=== PATIENT | male | born 1965 | race Hispanic/Latino ===

== ENCOUNTER 2016-06-10 06:02 | Day surgery (SDC) | payer MEDICARE ==
[2016-06-09 06:56] VITALS: BMI 23.7
[2016-06-10 06:47] LABS: CALCIUM 9.1 mg/dL (8.4-10.5); POTASSIUM 4.9 mmol/L (3.6-5.0)
[2016-06-10 06:58] VITALS: RESP 18
[2016-06-10] MEDS ORDERED: Bupivacaine 0.5% Inj(30mL) ONE (07:36)
[2016-06-10] MEDS ORDERED: Propofol 10 mg/ml Inj (20 ML) ONE (07:37)
[2016-06-10] MEDS ORDERED: Midazolam 2 MG/2 ML VIAL ONE (07:38)
[2016-06-10] MEDS ORDERED: Rocuronium 10 mg/ml (5 ml) ONE (09:13)
[2016-06-10] MEDS ORDERED: Succinylcholine 200 mg/10 ml Inj IV ONE (09:13)
[2016-06-10] MEDS ORDERED: Neostigmine Methylsulfate 3mg/3ml Syringe IV ONE (09:18)
[2016-06-10] MEDS ORDERED: HYDROmorphone 0.5 mg/0.5 ml ISec IVP PRN (09:23)
[2016-06-10] MEDS ORDERED: Oxycodone/Acetaminophen 5/325 mg Tab PO PRN (09:27)
--- NOTE | 2016-06-10 09:27 | PCM.SURG1 ---
Surgeon's Initial Post Op Note - Surgeon's Notes Surgeon: Dr. Alejo Antitank Assault Gunner: Dr. Lopez, PGY-2 Type of Anesthesia: General Endo Anesthesia Administered By: Dr. Gurrola Pre-Operative Diagnosis: End Stage Renal Disease Operative Findings: See operative report Post-Operative Diagnosis: Same Operation Performed: Insertion of Peritoneal Dialysis catheter & Omentopexy Specimen/Specimens Removed: none Estimated Blood Loss: EBL {In ML}: 5 Blood Products Given: N/A Drains Used: No Drains Post-Op Condition: Good Date of Surgery/Procedure: 06/10/16 Time of Surgery/Procedure: 09:26
[2016-06-10] MEDS ORDERED: Sodium Chloride 0.9% 1,000 ML IV SCH (09:30)
[2016-06-10] MEDS ORDERED: HYDROmorphone 0.5 mg/0.5 ml ISec ONE (09:45)
[2016-06-10] MEDS ORDERED: HYDROmorphone 0.5 mg/0.5 ml ISec IVP ONE (09:45)
--- NOTE | 2016-06-10 09:54 | OP ---
PROCEDURE DATE: 06/10/2016 PREOPERATIVE DIAGNOSIS: End-stage renal disease. POSTOPERATIVE DIAGNOSIS: End-stage renal disease. PROCEDURE PERFORMED: 1. Laparoscopic placement of the peritoneal dialysis catheter. 2. Laparoscopic omentopexy. 3. Placement of the peritoneal catheter extension in the upper abdomen. SURGEON: Ashok Alejo MD. VIBRATION ANALYST: Dr. Lopez. ANESTHESIA: General endotracheal anesthesia. ANESTHESIOLOGIST: Dr. Thomason. ESTIMATED BLOOD LOSS: Minimal. SPECIMEN: None. INDICATION: The patient is a 50-year-old male with a history of end-stage renal disease, currently on dialysis via the peritoneal dialysis catheter, who was scheduled for a peritoneal dialysis catheter placement. DESCRIPTION OF PROCEDURE: The patient was brought to the operating room and placed on the operating table in supine position. The patient was connected to EKG, blood pressure, and pulse oximeter monitors. The patient then underwent general endotracheal anesthesia, was prepped and draped in the usual sterile fashion. First, a timeout procedure took place, and everybody in a room agreed as to the patient's identity, diagnosis, and procedure to be performed. Using lidocaine mixed with Marcaine, the left subcoastal area was infiltrated, and an incision was made about 14 mm for placement of the 12-mm port. This was a Visiport and placed under direct visualization of the camera. Once inside the abdominal cavity, pneumoperitoneum was obtained, and careful evaluation of abdominal cavity revealed the presence of a right transplanted kidney in the right lower quadrant under the wall. There were some adhesions of omentum to that area, and there was also free-floating omentum all the way down to the pelvis. At this point, I carefully elevated the omentum and lifted it up, placed a 0 Vicryl tie into the abdominal cavity and proceeded the omentopexy of the omentum against the anterior abdominal wall using a closure needle. Once this was done and the omentum was elevated, I then placed an 8-mm port, which was tunneled from just about 8 cm above the umbilicus underneath the anterior rectus sheath down to about the umbilical level and then placed through the posterior rectus sheath down and through the peritoneum into the abdominal cavity. The catheter was then advanced and placed into the pelvis. The port was carefully withdrawn, and the calf of the catheter was placed just above the peritoneum to be hidden from the peritoneal cavity. Next, the extension of the peritoneal catheter was placed under the skin and tunneled from the entry site of the 8-mm port towards the entry site of the 12- mm port, curved it down, and brought out through the skin on the left lateral abdomen at the level of the umbilicus. Next, the primary catheter and the extensions were connected with the connector and tied in place. This was then tunneled under the skin and carefully positioned and flattened. Next, careful evaluation of the catheter itself revealed the presence of the catheter in the pelvis with calf hidden under the peritoneum. We then infused the patient's abdominal cavity with about 600 mL of saline without any problems , and about 300 of that was drained back without any problems as well. Now, the pneumoperitoneum was released, trocars removed, and the wounds closed using 0 Vicryl for the fascia and the left subcostal incision, and 3-0 Vicryl for the deep dermis on all the wounds. 4-0 Monocryl was used for skin on all the wounds, and a Dermabond dressing was applied to all the wounds. The patient tolerated the procedure well, and there were no complications. The patient was awakened and transferred to the recovery room for further observation. Ashok Alejo MD cc: [id number] TT: 06/10/2016 09:53:14 jn MTDD
[2016-06-10 10:47] VITALS: TEMP 98.1
[2016-06-10 11:25] VITALS: BP 123/72; PULSE 94; O2SAT 98
== END 2016-06-10 12:05 | disposition home or self-care (01) ==
LOC: SDS 06:02
PROVIDERS: ATTEND General Practice
DX: I12.0 Hypertensive chronic kidney disease with stage 5 chronic kidney disease or end stage renal disease (principal); N18.6 End stage renal disease; N02.8 Recurrent and persistent hematuria with other morphologic changes; Z99.2 Dependence on renal dialysis; Z94.0 Kidney transplant status
CPT/HCPCS: 36415; 49324; 49326; 80048; J0330; J0690; J1170; J1644; J2250; J2405; J2704; J2710; J3010; J7030; J7040

== ENCOUNTER 2016-07-01 07:40 | Day surgery (SDC) | payer MEDICARE ==
[2016-06-09 06:56] VITALS: BMI 23.7
[2016-07-01] MEDS ORDERED: Propofol 10 mg/ml Inj (20 ML) ONE (09:22)
[2016-07-01 10:14] VITALS: O2SAT 100
[2016-07-01 11:01] VITALS: BP 133/92; PULSE 68; RESP 18; TEMP 98.3
== END 2016-07-01 11:20 | disposition home or self-care (01) ==
LOC: ENDO 07:40
PROVIDERS: ATTEND Internal Medicine Gastroenterology
DX: Z12.11 Encounter for screening for malignant neoplasm of colon (principal); D12.3 Benign neoplasm of transverse colon; K57.30 Diverticulosis of large intestine without perforation or abscess without bleeding; K64.9 Unspecified hemorrhoids; I12.0 Hypertensive chronic kidney disease with stage 5 chronic kidney disease or end stage renal disease; N18.6 End stage renal disease; Z99.2 Dependence on renal dialysis
CPT/HCPCS: 45380; 88305; J2704; J7040

== ENCOUNTER 2016-07-11 13:47 | Observation (INO) | payer MEDICARE ==
--- NOTE | 2016-07-11 14:22 | ED PDOC ---
Arrival/HPI - General Chief Complaint: Abnormal Labs Time Seen by Provider: 07/11/16 14:02 Historian: Patient - History of Present Illness Narrative History of Present Illness (Text): 07/11/16 14:18 50 year old male presents to the emergency department with 1 week duration of fever and chills and dry cough. Patient states he was recently training for peritoneal dialysis and has positive blood cultures outpatient. No other complaints at this time. PMD: Dr. Rivers Licensed Club Manager: Dr. Gleason Time/Duration: 1 week Symptom Onset: Gradual Symptom Course: Unchanged Modifying Factors (Text): None Past Medical History - Provider Review Nursing Documentation Reviewed: Yes - Infectious Disease Hx of Infectious Diseases: None - Tetanus Immunization Tetanus Immunization: Unknown - Cardiac Hx Hypertension: Yes - Pulmonary Hx Respiratory Disorders: No - Neurological Hx Neurological Disorder: No - HEENT Hx HEENT Disorder: (WEARS RX GLASSES) - Renal Hx Dialysis: Yes Date of Last Dialysis Treatment: 02/04/15 Hx Renal Failure: Yes Other/Comment: Dialysis port to the right chest wall - Endocrine/Metabolic Hx Endocrine Disorders: No - Hematological/Oncological Hx Anemia: Yes - Integumentary Hx Dermatological Disorder: No - Musculoskeletal/Rheumatological Hx Musculoskeletal Disorders: No - Gastrointestinal Hx Gastrointestinal Disorders: No - Genitourinary/Gynecological Other/Comment: ANURIC - Psychiatric Hx Anxiety: Yes Hx Depression: Yes Hx Emotional Abuse: No Hx Physical Abuse: No Hx Substance Use: No - Surgical History Hx Kidney Transplant: Yes - Anesthesia Hx Anesthesia Reactions: No Hx Malignant Hyperthermia: No - Suicidal Assessment Feels Threatened In Home Enviroment: No Family/Social History - Physician Review Nursing Documentation Reviewed: Yes Family/Social History: Unknown Family HX Smoking Status: Never Smoked Hx Alcohol Use: No Hx Substance Use: No Allergies/Home Meds Allergies/Adverse Reactions: Allergies Iodine and Iodide Containing Produc Allergy (Verified 07/11/16 13:49) ANAPHYLAXIS shellfish derived Allergy (Verified 07/11/16 13:49) ANAPHYLAXIS Home Medications: Home Meds Medication Instructions Recorded Confirmed Tacrolimus [Prograf] 1.5 mg PO BID 05/15/13 07/11/16 Alprazolam [Alprazolam] 0.5 mg PO BID PRN 03/09/15 07/11/16 Amlodipine/Valsartan [Exforge 1 tab PO DAILY 03/09/15 07/11/16 10-320 mg Tablet] Minoxidil [Minoxidil] 10 mg PO DAILY 03/09/15 07/11/16 Prednisone [Prednisone] 5 mg PO DAILY 03/09/15 07/11/16 Ferric Citrate [Auryxia] 3 tab PO TID 05/30/16 07/11/16 Ondansetron [Zofran] 4 mg PO BID PRN 05/30/16 07/11/16 Sertraline [Zoloft] 50 mg PO DAILY 05/30/16 07/11/16 cloNIDine [Catapres (RENAL)] 0.1 mg PO BID 05/30/16 07/11/16 Bisacodyl [Dulcolax] 1 tab PO BID 07/11/16 07/11/16 Review of Systems - Physician Review All systems were reviewed & negative as marked: Yes Physical Exam - Physical Exam Narrative Physical Exam (Text): - Review of Systems Constitutional: Normal. absent: Fatigue, Weight Change, Fevers Eyes: Normal ENT: Normal Respiratory: Cough (dry) absent: SOB, Sputum Cardiovascular: Normal absent: Chest pain, Palpitations, Syncope Gastrointestinal: absent: Abdominal pain, Diarrhea, Nausea, Vomiting Genitourinary: Normal. absent: Dysuria, Frequency, Hematuria Musculoskeletal: Normal. absent: Arthralgias, Back Pain, Neck Pain Skin: Normal Neurological: Normal absent: Focal Weakness Endocrine: Normal Hemo/Lymphatic: Normal Psychiatric: Normal - Physical exam Patient appears age appropriate, speaking full sentences without difficulty - Systems Exam Head: Present: Atraumatic, Normocephalic Pupils: Present: PERRL Extraocular Muscles: Present: EOMI Conjunctiva: Present: Normal Mouth: Present: Moist Mucous Membranes Neck: Present: Normal Range of Motion. No: MIDLINE TENDERNESS, Paraspinal Tenderness Respiratory/Chest: Present: Clear to Auscultation, Good Air Exchange. No: Respiratory Distress, Accessory Muscle Use, Tachypneic Cardiovascular: Present: Regular Rate and Rhythm, Normal S1, S2, Peripheral Pulses Present. Murmur. Abdomen: Present: Normal Bowel Sounds. Left lower quadrant PD insertion site with no drainage, erythema, or tenderness. No: Tenderness, Peritoneal Signs, Rebound, Guarding, Distention Back: Present: Normal Inspection. No: Midline Tenderness, Paraspinal Tenderness Upper Extremity: Present: Normal Inspection. No: Cyanosis, Edema Lower Extremity: Present: Normal Inspection. No: Edema Neurological: Present: GCS=15, Speech Normal, cranial nerves II through XII fully intact with no cerebellar abnormality, neuro-sensory fully intact. No focal neurological deficits. Skin: Present: Warm, Dry, Normal Color. No: Rashes Lymphatic: Present: OX3, NI, NC Psychiatric: Present: Alert, Oriented x 3, Normal Insight, Normal Concentration Vital Signs Reviewed: Yes Vital Signs Temp Pulse Resp BP Pulse Ox 07/11/16 13:50 100.2 F H 105 H 16 136/81 94 L Temperature: Afebrile Blood Pressure: Normal Pulse: Tachycardic Respiratory Rate: Normal Appearance: Positive for: Well-Appearing, Non-Toxic, Comfortable Pain Distress: None Mental Status: Positive for: Alert and Oriented X 3 Medical Decision Making ED Course and Treatment: Impression: 50 year old male presents to the emergency department with 1 week duration of fever and chills and dry cough. On physical exam, patient has no acute findings. Had pos. blood Cx outpatient. Plan: -- Blood cultures -- Labs -- Reassess and disposition Prior Visits: Notes and results from previous visits were reviewed. Patient last seen in the ED on 02/04/15 for elevated blood pressure and discharged home. Progress Notes: Case discussed with Dr. Gleason, verification rep, states to administer 1 g Vancomycin, repeat blood cultures, admit for further workup. He states patient' s blood cultures showed gram positive cocci in clusters. Chest x-ray read by me shows no pneumothorax, no pneumonia, no cardiomegaly, no infiltrates. 07/11/16 15:[address] Harsha Rivers, accepted admission to his service pt in no distress, aware of and agrees with plan - Lab Interpretations Lab Results: 07/11/16 14:28 07/11/16 14:28 Lab Results 07/11/16 14:28: Sodium 138, Potassium 4.8, Chloride 98, Carbon Dioxide 24, Anion Gap 21 H, BUN 74 H, Creatinine 22.5 H*, Est GFR ( Amer) 3, Est GFR (Non-Af Amer) 2, Random Glucose 105, Calcium 7.5 L, Total Bilirubin 0.8, AST 8 L , ALT 24, Alkaline Phosphatase 57, Total Protein 6.8, Albumin 3.8, Globulin 3.0 , Albumin/Globulin Ratio 1.3 07/11/16 14:28: PT 10.9, INR 1.01, APTT 30.8 07/11/16 14:28: WBC 3.0 L D, RBC 3.05 L, Hgb 9.5 L, Hct 28.9 L, MCV 94.8, MCH 31.1, MCHC 32.9, RDW 12.2, Plt Count 55 L, MPV 10.1, Gran % 50.1, Lymph % (Auto ) 31.1, [place] % (Auto) 15.2 H, Eos % (Auto) 3.3, Baso % (Auto) 0.3, Gran # 1.51, Lymph # 0.9 L, [place] # 0.5, Eos # 0.1, Baso # 0.01 - RAD Interpretation Radiology Orders: 07/11/16 14:03 CHEST PORTABLE [RAD] Stat - Medication Orders Current Medication Orders: Vancomycin HCl (Vancomycin 1gm) 1 gm in 250 mls @ 133.333 mls/hr IVPB STAT STA PRN Reason: Protocol Stop: 07/11/16 16:40 - Scribe Statement The provider has reviewed the documentation as recorded by the Santos Villar Provider Scribe Attestation: All medical record entries made by the Santos were at my direction and personally dictated by me. I have reviewed the chart and agree that the record accurately reflects my personal performance of the history, physical exam, medical decision making, and the department course for this patient. I have also personally directed, reviewed, and agree with the discharge instructions and disposition. Disposition/Present on Arrival - Present on Arrival Any Indicators Present on Arrival: No History of DVT/PE: No History of Uncontrolled Diabetes: No Urinary Catheter: No History of Decub. Ulcer: No History Surgical Site Infection Following: None - Disposition Have Diagnosis and Disposition been Completed?: Yes Diagnosis: Bacteremia Disposition: HOSPITALIZED Disposition Time: 15:14 Patient Plan: Admission Condition: GOOD Referrals: Harsha Rivers JD, MD [Primary Care Provider] - Follow up with primary
[2016-07-11 14:37] LABS: ADD MANUAL DIFF? NO
[2016-07-11 14:42] LABS: BASO # 0.01 K/mm3 (0.0-2.0); BASO % 0.3 % (0.0-3.0); EOS # 0.1 (0.0-0.7); EOS % 3.3 % (1.5-5.0); GRAN # 1.51 (1.4-6.5); GRAN % 50.1 % (50.0-68.0); HEMATOCRIT 28.9 % (42.0-52.0); LYMPH # 0.9 (1.2-3.4); LYMPH % 31.1 % (22.0-35.0); MEAN CELL VOLUME 94.8 fL (80.0-105.0); MEAN CORPUSCULAR HEMOGLOBIN 31.1 pg (25.0-35.0); MEAN CORPUSCULAR HGB CONC 32.9 g/dl (31.0-37.0); MEAN PLATELET VOLUME 10.1 fl (7.0-11.0); MONO # 0.5 (0.1-0.6); MONO % 15.2 % (1.0-6.0); PLATELET COUNT 55 10^3/uL (120.0-450.0); RED CELL DISTRIBUTION WIDTH 12.2 % (11.5-14.5)
[2016-07-11] MEDS ORDERED: Vancomycin 1gm in NS 250ml 1 GM/250 ML BAG IVPB STA (14:48)
[2016-07-11 14:49] LABS: ALB/GLOB RATIO 1.3 (1.1-1.8); BILIRUBIN,TOTAL 0.8 mg/dL (0.2-1.3); CALCIUM 7.5 mg/dL (8.4-10.5); POTASSIUM 4.8 mmol/L (3.6-5.0); TOTAL PROTEIN 6.8 g/dL (5.8-8.3)
[2016-07-11 14:53] LABS: INR 1.01 (0.93-1.08); PARTIAL THROMBOPLASTIN TIME 30.8 Seconds (23.7-30.8)
--- NOTE | 2016-07-11 14:59 | RAD ---
HISTORY: cough COMPARISON: Chest x-ray performed 05/30/16 TECHNIQUE: Chest, one view. FINDINGS: Right IJ dialysis catheter with distal tips at the cavoatrial junction/right atrium. LUNGS: No focal consolidation. Please note that chest x-ray has limited sensitivity for the detection of pulmonary masses. PLEURA: No significant pleural effusion identified. No definite pneumothorax . CARDIOVASCULAR: Heart size appears top normal. Atherosclerotic calcifications of the aorta. OSSEOUS STRUCTURES: Degenerative changes. VISUALIZED UPPER ABDOMEN: Unremarkable. OTHER FINDINGS: None. IMPRESSION: Right-sided dialysis catheter. No focal consolidation, significant pleural effusion, or definite pneumothorax identified.
[2016-07-11 15:06] VITALS: RESP 18
[2016-07-11 19:29] VITALS: BMI 24.7
[2016-07-11] MEDS ORDERED: Pneumococcal 23-Valent Vaccine IM ONE (19:29)
[2016-07-11 19:34] VITALS: PULSE 79
[2016-07-12 07:21] VITALS: BP 151/94; TEMP 98.6; O2SAT 97
[2016-07-12] MEDS: Ferric Citrate 210 mg (AURYXIA) Tab. PO SCH ×3 (09:40→18:57)
[2016-07-12] MEDS: Bisacodyl 5mg EC Tab PO SCH ×3 (09:41→18:58)
--- NOTE | 2016-07-12 14:30 | HP ---
HISTORY OF PRESENT ILLNESS: The patient is a 50-year-old male with a history of IgA nephropathy with chronic kidney disease, status post renal transplant approximately 8 years ago with subsequent rejec tion. The patient has been on hemodialysis and recently had a peritoneal dialysis catheter inserted. He was seen in the Emergency Department with a complaint of positive blood cultures with gram-posit roland cocci 2 days ago after blood cultures were taken as an outpatient for reports of fever. The ember ent denies cough. He denies dysuria. He denies diarrhea. There is no nausea, no vomiting, no chest pain, no shortness of breath. The patient is afebrile at the present time. He is admitted to the [facility] surgical floor for further evaluation and management. PAST MEDICAL HISTORY: Includes hypertension and depression. PAST SURGICAL HISTORY: Includes renal transplant 6 years ago. MEDICATIONS: Include ferric citrate 630 mg 3 times daily, clonidine 0.5 mg twice daily, Diovan 320 m g daily, minoxidil 10 mg daily, Norvasc 10 mg daily, prednisone 5 mg daily, tacrolimus 1.5 mg twice d aily, Xanax 0.5 mg twice daily and Zoloft 50 mg daily. The patient also received 1 gram of vancomyci n IV in the Emergency Department. ALLERGIES: THE PATIENT HAS ALLERGIES TO IODINE AND SHELLFISH. SOCIAL HISTORY: The patient has no history of alcohol or tobacco use. He is independent with ADLs a nd IADLs. PHYSICAL EXAMINATION: GENERAL: The patient is a well-developed male in no acute distress. VITAL SIGNS: Blood pressure 151/94, temperature 98.6, pulse 79, respiratory rate 18. HEENT: Head is normocephalic, atraumatic. Pupils equal, round, reactive to light. Extraocular move ments intact. NECK: Supple, with no thyromegaly, no carotid bruit. CHEST: There is a dialysis catheter in the right chest wall. LUNGS: Clear. HEART: Regular rate and rhythm. ABDOMEN: Soft, nontender, bowel sounds are normoactive. There is a peritoneal dialysis catheter pratik t has been inserted and is intact with no redness or no discharge. EXTREMITIES: There is mild generalized muscle wasting and atrophy bilaterally. NEUROLOGIC: The patient is awake and oriented x 3 without focal sensory or motor deficits. SKIN: Warm and dry. LABORATORY DATA: WBC is 3.0, hemoglobin 9.5, hematocrit 28.9. Sodium 138, potassium 4.8, chloride 9 8, CO2 24, BUN 74, creatinine 22.2, glucose 105. Chest x-ray shows no active lung disease. IMPRESSION: 1. Rule out gram-positive sepsis, status post placement of peritoneal dialysis catheter. 2. IgA nephropathy, status post transplant 8 years ago with rejection, previously on hemodialysis. 3. Hypertension. 4. Anxiety disorder. PLAN: The patient will go for hemodialysis today. He will receive 1 gram of vancomycin IV and hemod ialysis and may be discharged to home pending results of cultures. He will be followed by his nephro logist, Dr. Gleason, and he will be seen in my office within the next week. He will continue his pres ent medications. Harsha Rivers JD, MD cc: [id number] TT: 07/12/2016 14:30:29 walt
--- NOTE | 2016-07-12 15:18 | CON ---
DATE: 07/12/2016 HISTORY OF PRESENT ILLNESS: A 50-year-old male with past medical history of IgA nephropathy, ESRD, on peritoneal dialysis, status post living related kidney donation in 2003, transplant failed in 2014 and started on hemodialysis, transitioned to peritoneal dialysis last week, sent to ED due to finding of positive blood cultures. Nephrology seeing patient for dialysis care. The patient had been reporting having cough and low-grade fever since the past few days. Had blood cultures drawn 3 days ago that resulted yesterday as gram- positive cocci in clusters and therefore sent to ED. The patient otherwise has been in his usual state of health. Denies any shortness of breath or leg swelling. PAST MEDICAL HISTORY: As above. SOCIAL HISTORY: Denies smoking. FAMILY HISTORY: Mother with rheumatoid fever. REVIEW OF SYSTEMS: CONSTITUTIONAL: Appetite well. HEENT: No sinus pain. No ear fullness or difficulty hearing. No headaches. RESPIRATORY: As mentioned in HPI. CARDIOVASCULAR: No chest pain or palpitations. GASTROINTESTINAL: Reports having an episode of vomiting earlier today. Otherwise, had been asymptomatic previously. Also with an episode of diarrhea today, but previously asymptomatic. GENITOURINARY: Anuric. MUSCULOSKELETAL: Denies any backache or joint pains. SKIN: Denies any itching or rashes. PSYCHIATRIC: History of anxiety, on Xanax p.r.n. NEUROLOGIC: No headaches, no numbness in extremities. PHYSICAL EXAMINATION: VITAL SIGNS: This morning, blood pressure 151/94, heart rate 79, respirations 18, temperature 98.6, O2 sat 97% on room air. GENERAL: No distress, conversing coherently in full sentences, alert and oriented x 3. HEENT: Moist mucous membranes, nonicteric. NECK: No cervical lymphadenopathy. RESPIRATORY: Mild bronchus sounds bilaterally; otherwise, no rales. Normal breathing pattern. Good air movement. HEART: Systolic murmur present, regular rate and rhythm. GASTROINTESTINAL: Abdomen soft, nontender, nondistended. GENITOURINARY: No bladder distention. EXTREMITIES: No leg edema. SKIN: Warm, no cyanosis. Good capillary refill. PSYCHIATRIC: Normal mood, normal affect. NEUROLOGIC: No numbness in feet. LABORATORY DATA: Labs from yesterday, WBC 3.0, hemoglobin 9.5, hematocrit 28.9 , platelets 55. Chemistry panel: Sodium 138, potassium 4.8, chloride 98, bicarbonate 24, BUN 74, creatinine 22.5, calcium 7.5, albumin 3.8. Chest x-ray , image personally reviewed. No obvious infiltrate or consolidation. ASSESSMENT AND PLAN: 1. Bacteremia. Outpatient blood culture drawn 3 days ago grew out to coag negative staph in one bottle. Second bottle still reporting gram-positive cocci in pairs and clusters. Question about whether this is a contaminant or represents true bacteremia. That source of infection would be his hemodialysis catheter, although on inspection by nursing staff, appeared clean yesterday. Swab around site of entry taken, although no drainage present. The patient received 1 dose of vancomycin 1 gram yesterday. Will receive a second dose today at the end of hemodialysis. Will continue rest of course as outpatient in outpatient dialysis center if necessary. 2. If blood cultures drawn in the hospital are also positive, will need to remove hemodialysis catheter. 3. End-stage renal disease on peritoneal dialysis. As mentioned above, transitioned to peritoneal dialysis within the past week as patient has been undergoing training, was set to start PD at home yesterday. The patient has not yet had equilibration test to assess his clearances. The patient to get hemodialysis today, 3-1/2 hours on 2K, 2.5 calcium, 34 bicarb, dialysate with UF goal of about 2 liters. The patient should resume PD tomorrow night as per initial prescription given to him last week, as we need to assess how well his clearances are. No other PD will work for him, especially as patient is anuric and has no residual renal function. 4. Hypertension. Blood pressure elevated today. On amlodipine 10 mg daily, clonidine 0.1 mg b.i.d. and minoxidil 10 mg daily. Continue the same. 5. Immunosuppression. The patient is status post renal transplant. Still on low dose of immunosuppressive medications, tacrolimus 1.5 mg b.i.d. and prednisone 5 mg daily. Continue the same. 6. Anemia. Aranesp was being held as hemoglobin was above 12. Now hemoglobin is below goal of 10-11 for dialysis patient. The patient just had labs done as outpatient last week. We will initiate Aranesp and IV iron per protocol. 7. Chronic kidney disease, mineral bone disease. The patient on Auryxia 3 tablets with meals. Continue the same. Kriscaleb Forbes MD cc: [id number] TT: 07/12/2016 15:17:17 Confirmation # [id number] Dictation # [id number] rn MTDD
[2016-07-12 15:32] LABS: ADD MANUAL DIFF? NO
[2016-07-12 15:34] LABS: BASO # 0.01 K/mm3 (0.0-2.0); BASO % 0.2 % (0.0-3.0); EOS # 0.1 (0.0-0.7); EOS % 1.6 % (1.5-5.0); GRAN # 3.66 (1.4-6.5); GRAN % 81.5 % (50.0-68.0); HEMATOCRIT 27.9 % (42.0-52.0); LYMPH # 0.6 (1.2-3.4); LYMPH % 12.9 % (22.0-35.0); MEAN CELL VOLUME 88.6 fL (80.0-105.0); MEAN CORPUSCULAR HEMOGLOBIN 30.8 pg (25.0-35.0); MEAN CORPUSCULAR HGB CONC 34.8 g/dl (31.0-37.0); MEAN PLATELET VOLUME 11.1 fl (7.0-11.0); MONO # 0.2 (0.1-0.6); MONO % 3.8 % (1.0-6.0); PLATELET COUNT 63 10^3/uL (120.0-450.0); RED CELL DISTRIBUTION WIDTH 12.3 % (11.5-14.5); WHITE BLOOD COUNT 4.5 10^3/ul (4.5-11.0)
[2016-07-12] MEDS: Vancomycin 1gm in NS 250ml 1 GM/250 ML BAG IVPB STA ×2 (16:35→17:41)
[2016-07-12] MEDS ORDERED: Darbepoetin Alfa 25 mcg/ml Inj IVP ONE (17:31)
--- NOTE | 2016-07-13 07:40 | DS ---
HOSPITAL COURSE: The patient is a 50-year-old male admitted through the Emergency Department for pre sumptive gram-positive sepsis after blood cultures 1 out of 2 were positive for gram-positive cocci. The patient received 1 gram of IV vancomycin in the Emergency Department. He has been afebrile with no clinical signs or symptoms of sepsis and he is medically stable for discharge. He will be discha rged to home after receiving hemodialysis and 1 gram of vancomycin in dialysis. Physical examination, medications are as per admission history and physical dictated 07/12/2016. He w ill be followed as an outpatient by myself and his product manager e commerce, Dr. Forbes in 1 week. Activity is a d libitum. He will follow a renal diet. Harsha Rivers JD, MD cc: [id number] TT: 07/13/2016 07:40:08 en
== END 2016-07-12 19:07 | disposition home or self-care (01) ==
LOC: ED 13:47 → ERH 15:15 → 3RNO 17:40
PROVIDERS: ADMIT Internal Medicine; ATTEND Internal Medicine
DX: A41.9 Sepsis, unspecified organism (principal); I12.0 Hypertensive chronic kidney disease with stage 5 chronic kidney disease or end stage renal disease; N18.6 End stage renal disease
CPT/HCPCS: 36415; 71010; 80053; 85025; 85610; 85730; 87040; 87070; 87149; 87181; 87205; 96365; 96366; 99283; G0257; G0378; J0881; J7507

== ENCOUNTER 2016-08-14 18:24 | Emergency (ER) | payer MEDICARE ==
[2016-08-14 18:27] VITALS: BMI 24.7
[2016-08-14 18:29] VITALS: RESP 18; TEMP 98.7
[2016-08-14 20:58] VITALS: BP 168/90; PULSE 79; O2SAT 100
--- NOTE | 2016-08-14 22:30 | ED PDOC ---
Arrival/HPI - General Historian: Patient - History of Present Illness Time/Duration: 1-3 hours Symptom Onset: Sudden Symptom Course: Unchanged Quality: Other (sharp) Severity Level: 8 Context: Exertion - General Chief Complaint: Finger,Hand,&Wrist Time Seen by Provider: 08/14/16 19:14 - History of Present Illness Narrative History of Present Illness (Text): 08/14/16 22:27 Mr. Weston is a 50 yo male who complains of right wrist pain for the past few hours. He reports the pain started after he was lifting cartons of his dialysis solution today. He states that the pain is a shooting pain, rated 8/10, located primarily on his right posterior hand to wrist. He denies taking any medication for the pain. He does report associated symptoms of numbness in his fingers along with limited range of motion. 08/14/16 22:41 (MARIYA VELÁSQUEZ) Past Medical History - Provider Review Nursing Documentation Reviewed: Yes - Past History Past History: No Previous - Infectious Disease Hx of Infectious Diseases: None - Tetanus Immunization Tetanus Immunization: Unknown - Past Medical History Past Medical History: Non-Contributing - Cardiac Hx Pacemaker: No - Pulmonary Hx Respiratory Disorders: No - Neurological Hx Paralysis: No - HEENT Hx HEENT Disorder: (WEARS RX GLASSES) - Renal Hx Renal Disorder: Yes Hx Dialysis: Yes Hx Renal Failure: Yes Other/Comment: Dialysis port to the right chest wall, llq abd peritoneal dialysis inserted 06/10/16. pt was in training for pd was to start tonight but wound up in the hospital. 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 Colonoscopy - Anesthesia Hx Anesthesia: Yes Hx Anesthesia Reactions: No Hx Malignant Hyperthermia: No - Suicidal Assessment Feels Threatened In Home Enviroment: No Family/Social History - Physician Review Nursing Documentation Reviewed: Yes Family/Social History: No Known Family HX Smoking Status: Never Smoked Hx Alcohol Use: No Hx Substance Use: No Allergies/Home Meds Allergies/Adverse Reactions: Allergies Iodine and Iodide Containing Produc Allergy (Verified 07/11/16 13:49) ANAPHYLAXIS shellfish derived Allergy (Verified 07/11/16 13:49) ANAPHYLAXIS Home Medications: Home Meds Medication Instructions Recorded Confirmed Tacrolimus [Prograf] 1.5 mg PO BID 05/15/13 08/14/16 Alprazolam 0.5 mg PO BID PRN 03/09/15 08/14/16 Amlodipine/Valsartan [Exforge 1 tab PO DAILY 03/09/15 08/14/16 10-320 mg Tablet] Minoxidil 10 mg PO DAILY 03/09/15 08/14/16 Prednisone 5 mg PO DAILY 03/09/15 08/14/16 Ferric Citrate [Auryxia] 3 tab PO TID 05/30/16 08/14/16 Ondansetron [Zofran Tab] 4 mg PO BID PRN 05/30/16 08/14/16 Sertraline [Zoloft] 50 mg PO DAILY 05/30/16 08/14/16 cloNIDine [Catapres (RENAL)] 0.1 mg PO BID 05/30/16 08/14/16 Bisacodyl [Dulcolax] 1 tab PO DAILY 07/11/16 08/14/16 Calcitriol 0.25 mcg PO Q3XW 08/13/16 08/14/16 Review of Systems - Review of Systems Constitutional: absent: Fevers, Night Sweats Eyes: absent: Vision Changes ENT: absent: Hearing Changes Respiratory: absent: SOB, Cough Cardiovascular: absent: Chest Pain Gastrointestinal: absent: Abdominal Pain Genitourinary Male: absent: Dysuria Musculoskeletal: Other (Right wrist and forearm pain ) Skin: Normal Neurological: Normal Endocrine: Normal Hemo/Lymphatic: Normal Psychiatric: Normal Physical Exam Vital Signs Reviewed: Yes Temperature: Afebrile Blood Pressure: Normal Pulse: Regular Respiratory Rate: Normal Appearance: Positive for: Uncomfortable Pain Distress: Mild Mental Status: Positive for: Alert and Oriented X 3 - Systems Exam Head: Present: Atraumatic, Normocephalic Pupils: Present: PERRL Extroacular Muscles: Present: EOMI Conjunctiva: Present: Normal Mouth: Present: Moist Mucous Membranes Neck: Present: Normal Range of Motion Respiratory/Chest: Present: Clear to Auscultation, Good Air Exchange. No: Respiratory Distress, Accessory Muscle Use Cardiovascular: Present: Regular Rate and Rhythm, Normal S1, S2. No: Murmurs Abdomen: Present: Normal Bowel Sounds. No: Tenderness, Distention, Peritoneal Signs Back: Present: Normal Inspection Upper Extremity: Present: NORMAL PULSES, Tenderness (Right wrist), Neurovascularly Intact, Norm 2-Pt Discrimination. No: Cyanosis, Edema, Normal ROM (Right wrist), Swelling Lower Extremity: Present: Normal Inspection. No: Edema Neurological: Present: GCS=15, CN II-XII Intact, Speech Normal Skin: Present: Warm, Dry, Normal Color. No: Rashes Psychiatric: Present: Alert, Oriented x 3, Normal Insight, Normal Concentration Medical Decision Making ED Course and Treatment: 08/14/16 22:44 Impression: 50 year old complaining of Right wrist pain for 4 hours. Differential Diagnosis included but are not limited to: Right wrist sprain Plan: - right wrist x-ray - Ibuprofen - Reassess and disposition Progress Notes: (MARIYA VELÁSQUEZ) - RAD Interpretation Radiology Orders: 08/14/16 19:14 HAND RIGHT 3 VIEWS [RAD] Stat WRIST, RIGHT 3 VIEWS [RAD] Stat - Medication Orders Current Medication Orders: Discontinued Medications Ibuprofen (Motrin Tab) 600 mg PO STAT STA Stop: 08/14/16 19:16 Last Admin: 08/14/16 20:00 Dose: 600 mg - PA / VERTICAL LATHE OPERATOR / Resident Statement MD/DO has reviewed & agrees with the documentation as recorded. MD/DO has examined the patient and agrees with the treatment plan. Disposition/Present on Arrival - Present on Arrival Any Indicators Present on Arrival: No History of DVT/PE: No History of Uncontrolled Diabetes: No Urinary Catheter: No History of Decub. Ulcer: No History Surgical Site Infection Following: None - Disposition Have Diagnosis and Disposition been Completed?: Yes Disposition Time: 20:20 - Disposition Diagnosis: Wrist sprain Disposition: HOME/ ROUTINE Condition: IMPROVED Discharge Instructions (ExitCare): Wrist Sprain (ED) Additional Instructions: Thank you for letting us take care of you today. Your provider was Dr. Napier. You were treated for wrist sprain. The emergency medical care you received today was directed at your acute symptoms. If you were prescribed any medication, please fill it and take as directed. It may take several days for your symptoms to resolve. Return to the Emergency Department if your symptoms worsen, do not improve, or if you have any other problems. Please contact your doctor or call one of the physicians/clinics you have been referred to that are listed on the Patient Visit Information form that is included in your discharge packet. Bring any paperwork you were given at discharge with you along with any medications you are taking to your follow up visit. Our treatment cannot replace ongoing medical care by a primary care provider (PCP) outside of the emergency department. Thank you for allowing the [facility] team to be part of your care today. Follow up with your doctor in 2-3 days for re-evaluation. Prescriptions: Ibuprofen [Motrin] 600 mg PO Q6 PRN #20 tab PRN Reason: Pain, Moderate (4-7) Referrals: Harsha Rivers JD, MD [Primary Care Provider] - Follow up with primary
--- NOTE | 2016-08-15 08:43 | RAD ---
PROCEDURE: Right Hand Radiographs. HISTORY: r/o fx COMPARISON: None. FINDINGS: BONES: Normal. No fracture. JOINTS: Normal. No osteoarthritic changes. SOFT TISSUES: Normal. OTHER FINDINGS: None. IMPRESSION: No evidence of acute displaced fracture or dislocation.
--- NOTE | 2016-08-15 08:44 | RAD ---
PROCEDURE: Right Wrist Radiographs. HISTORY: r/o fx COMPARISON: None. FINDINGS: BONES: Normal. No fracture. JOINTS: Normal. No dislocation. SOFT TISSUES: Normal. OTHER FINDINGS: None. IMPRESSION: No evidence of acute fracture or dislocation
== END 2016-08-14 20:57 | disposition home or self-care (01) ==
LOC: ED 18:24
DX: S63.501A Unspecified sprain of right wrist, initial encounter (principal); X50.0XXA Overexertion from strenuous movement or load, initial encounter; Y93.89 Activity, other specified; Y92.89 Other specified places as the place of occurrence of the external cause

== ENCOUNTER 2016-08-18 06:45 | Day surgery (SDC) | payer MEDICARE ==
[2016-08-18 07:23] LABS: BASO # 0.01 K/mm3 (0.0-2.0); BASO % 0.2 % (0.0-3.0); EOS # 0.4 (0.0-0.7); EOS % 9.3 % (1.5-5.0); GRAN # 2.49 (1.4-6.5); GRAN % 56.6 % (50.0-68.0); HEMOGLOBIN 10.9 gm/dL (14.0-18.0); LYMPH # 1.1 (1.2-3.4); LYMPH % 25.7 % (22.0-35.0); MEAN CELL VOLUME 91.4 fL (80.0-105.0); MEAN CORPUSCULAR HEMOGLOBIN 30.4 pg (25.0-35.0); MEAN CORPUSCULAR HGB CONC 33.2 g/dl (31.0-37.0); MEAN PLATELET VOLUME 9.4 fl (7.0-11.0); MONO # 0.4 (0.1-0.6); MONO % 8.2 % (1.0-6.0); PLATELET COUNT 119 10^3/uL (120.0-450.0); RBC 3.59 10^6/uL (3.5-6.1); RED CELL DISTRIBUTION WIDTH 12.9 % (11.5-14.5); WHITE BLOOD COUNT 4.4 10^3/ul (4.5-11.0)
[2016-08-18 07:31] LABS: INR 0.94 (0.93-1.08); PARTIAL THROMBOPLASTIN TIME 26.6 Seconds (23.7-30.8); PROTHROMBIN TIME 10.1 Seconds (9.9-11.8)
[2016-08-18] MEDS ORDERED: Famotidine 20mg/50ml 20 MG/50 ML BAG IVPB ONE (07:51)
[2016-08-18] MEDS ORDERED: DiphenhydrAMINE 50 mg/ml Inj ONE (07:51)
[2016-08-18 07:52] LABS: CALCIUM 6.8 mg/dL (8.4-10.5)
[2016-08-18] MEDS ORDERED: Lidocaine 2% Inj (20ml) ONE (08:29)
[2016-08-18] MEDS ORDERED: Iodixanol 320 mg/ml 150 ml Bottle IV ONE (08:29)
[2016-08-18] MEDS ORDERED: Nitroglycerin 50mg in D5W 50 MG/250 ML BOTTLE IV ONE (08:29)
[2016-08-18] MEDS ORDERED: Midazolam 2 MG/2 ML VIAL ONE (09:10)
[2016-08-18] MEDS ORDERED: Bacitracin 500 Units/gm Oint Foilpak UD TOP ONE (10:00)
[2016-08-18] MEDS ORDERED: Sodium Chloride 0.9% 1,000 ML IV SCH (10:00)
[2016-08-18 10:02] VITALS: TEMP 97.9; O2SAT 98
[2016-08-18 10:33] VITALS: RESP 20
[2016-08-18 12:01] VITALS: BP 129/86; PULSE 77
[2016-08-18] MEDS ORDERED: Bacitracin 500 Units/gm Oint Foilpak UD ONE (12:19)
--- NOTE | 2016-08-18 18:25 | CARD ---
APPROVED REPORT Procedure(s) performed: Left Heart Catheterization HISTORY The patient is a 50 year-old male with a history of : most recent EF: 67%. (EF Method: RADIONUCLIDE), renal failure with dialysis, hypertension , Iga Nephropathy leading to ESRD on PD at home ,pre-op for renal Tx had an abnormal stress test. INDICATION The indication(s) include : positive stress test. CASE TECHNIQUE The patient was brought electively to the Cardiac Catheterization Laboratory in a fasting state and was prepped and draped in a sterile manner. The left wrist was infiltrated with 2% Lidocaine subcutaneous anesthesia. A 6 Fr Glidesheath (Radial) sheath was inserted into the left radial artery without difficulty. Coronary angiography was performed using coronary diagnostic catheters. The left coronary system was accessed and visualized with a Diagnostic ,5 Fr JL 4 catheter. The right coronary system was accessed and visualized with a Diagnostic ,5 Fr JR 4 catheter. The left ventricle was accessed and visualized with a 5 Fr Pigtail 145 (Angled) catheter. Left ventricular/Aortic Valve gradient assessed on pullback. Left ventriculogram was performed in KEMP projection. Closure device was deployed with a Fr TR Band (Regular) without any complications. The patient tolerated the procedure well and there were no complications associated with the procedure. Vessel Analysis The patient's coronary anatomy is co-dominant. The left main coronary artery is a large size vessel without significant stenosis. The left main trifurcates to the left anterior descending, circumflex, and ramus. The left anterior descending artery is a large size vessel with diffuse calcification noted throughout this vessel and without significant stenosis. Very tortous vessel The first diagonal branch is a medium size vessel with diffuse calcification noted throughout this vessel and without significant stenosis. The second diagonal branch is a medium size vessel with diffuse calcification noted throughout this vessel and with significant stenosis. There is a 60% stenosis in the ostial segment. The circumflex artery is a large size vessel with diffuse calcification noted throughout this vessel and without significant stenosis. The first obtuse marginal branch is a small size vessel with diffuse calcification noted throughout this vessel and without significant stenosis. The left posterior descending artery is a large size vessel with diffuse calcification noted throughout this vessel and without significant stenosis. The ramus intermedius artery is a medium size vessel with diffuse calcification noted throughout this vessel and without significant stenosis. very tortous vessel The right coronary artery is a large size vessel with diffuse calcification noted throughout this vessel and without significant stenosis. Very tortous vessel The right posterior descending artery is a medium size vessel with diffuse calcification noted throughout this vessel and without significant stenosis. Left Ventricle The left ventricle is normal in size with normal contractility. There was no cardiomyopathy. The left ventricular ejection fraction is estimated to be 65%. The left ventricular end diastolic pressure is 18 mmHg. There was no gradient across the aortic valve upon pullback. Conclusion Non Obst CAD limited to D2 ostial 60% stenosis HTN heart Diz Preserved LV Fx. EF-65%. EDP-18 mmof Hg. Recommendations Aggressive Medical TherapyCardiac Risk Reduction Program Pt is cleared to go for Renal tx Eval ( cleared from cardiology point of View). CC; Dr. Rivers/ [place]
== END 2016-08-18 13:30 | disposition home or self-care (01) ==
LOC: CATH 06:45
PROVIDERS: ATTEND Internal Medicine Cardiovascular Disease
DX: I25.10 Atherosclerotic heart disease of native coronary artery without angina pectoris (principal); I13.11 Hypertensive heart and chronic kidney disease without heart failure, with stage 5 chronic kidney disease, or end stage renal disease; N18.6 End stage renal disease; N02.8 Recurrent and persistent hematuria with other morphologic changes; Z99.2 Dependence on renal dialysis
CPT/HCPCS: 36415; 80048; 80061; 85025; 85610; 85730; 86850; 86900; 93458; 99152; C1769; C1887 ×2; J1200; J1644 ×2; J1720; J2250; J3010; J7030; J7040 ×2

== ENCOUNTER 2016-09-11 10:19 | Emergency (ER) | payer MEDICARE ==
[2016-09-11 10:25] VITALS: TEMP 97.9; BMI 24.3
--- NOTE | 2016-09-11 10:52 | ED PDOC ---
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 Pain radiating to RUG and periumbilical. Pt also c/o chills. Patient denies having any fevers, N/V/D/C, CP, SOB. Patient did not use anything for the pain. Patient had kidney transplant about 13 years ago which failed after a few years. Patient was then placed on HD. He started PD 2 months ago. He does PD every night. Patient is also currently on immunosuppressive drugs. 09/11/16 10:59 (Kavya Gamez) Past Medical History - Provider Review Nursing Documentation Reviewed: Yes - Past History Past History: No Previous - Infectious Disease Hx of Infectious Diseases: None - Tetanus Immunization Tetanus Immunization: Unknown - Past Medical History Past Medical History: Non-Contributing - Cardiac Hx Pacemaker: No - Pulmonary Hx Respiratory Disorders: No - Neurological Hx Paralysis: No - HEENT Hx HEENT Disorder: Yes (WEARS RX GLASSES) - Renal Hx Renal Disorder: Yes Hx Dialysis: Yes Hx Renal Failure: Yes Other/Comment: llq abd peritoneal dialysis inserted 06/10/16. 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, had kidney pransplant 2003 failed 2007, pt performs peritoneal dialysis at home - Endocrine/Metabolic Hx Endocrine Disorders: No - Hematological/Oncological Hx Blood Transfusions: No - Integumentary Hx Dermatological Disorder: No - Musculoskeletal/Rheumatological Hx Musculoskeletal Disorders: No - Gastrointestinal Hx Gastrointestinal Disorders: No - Genitourinary/Gynecological Hx Genitourinary Disorders: Yes Other/Comment: ANURIC - Psychiatric Hx Psychophysiologic Disorder: Yes Hx Anxiety: Yes Hx Depression: Yes Hx Emotional Abuse: No Hx Physical Abuse: No Hx Substance Use: No - Surgical History Other/Comment: PD placement in the LLQ and dialysis port to chest removed - Anesthesia Hx Anesthesia: Yes Hx Anesthesia Reactions: No Hx Malignant Hyperthermia: No - Suicidal Assessment Feels Threatened In Home Enviroment: No <Kavya Gamez - Last Filed: 09/11/16 18:08> Family/Social History - Physician Review Nursing Documentation Reviewed: Yes Family/Social History: No Known Family HX Smoking Status: Never Smoked Hx Alcohol Use: No Hx Substance Use: No <Kavya Gamez - Last Filed: 09/11/16 18:08> Allergies/Home Meds <Kavya Gamez - Last Filed: 09/11/16 18:08> <Keanu Anderson - Last Filed: 09/11/16 18:38> Allergies/Adverse Reactions: Allergies Iodine and Iodide Containing Produc Allergy (Verified 09/11/16 10:24) ANAPHYLAXIS shellfish derived Allergy (Verified 09/11/16 10:24) ANAPHYLAXIS Home Medications: Home Meds Medication Instructions Recorded Confirmed Tacrolimus [Prograf] 1.5 mg PO BID 05/15/13 09/11/16 Alprazolam 0.5 mg PO BID PRN 03/09/15 09/11/16 Amlodipine/Valsartan [Exforge 1 tab PO DAILY 03/09/15 09/11/16 10-320 mg Tablet] Minoxidil 10 mg PO DAILY 03/09/15 09/11/16 Prednisone 5 mg PO DAILY 03/09/15 09/11/16 Ferric Citrate [Auryxia] 3 tab PO TID 05/30/16 09/11/16 Ondansetron [Zofran Tab] 4 mg PO BID PRN 05/30/16 09/11/16 Sertraline [Zoloft] 50 mg PO DAILY 05/30/16 09/11/16 cloNIDine [Catapres (RENAL)] 0.1 mg PO BID 05/30/16 09/11/16 Bisacodyl [Dulcolax] 1 tab PO DAILY 07/11/16 09/11/16 Calcitriol 0.25 mcg PO Q3XW 08/13/16 09/11/16 Review of Systems - Review of Systems Constitutional: Normal. absent: Fatigue, Fevers ENT: Normal. absent: Sore Throat, Rhinorrhea Respiratory: Normal. absent: SOB, Cough, Wheezing Cardiovascular: Normal. absent: Chest Pain, Palpitations, Calf Pain Gastrointestinal: Abdominal Pain. absent: Constipation, Diarrhea, Nausea, Vomiting Genitourinary Male: Normal (PD. Does not produce urine ) Musculoskeletal: Normal. absent: Arthralgias, Back Pain, Neck Pain Skin: Normal. absent: Rash Neurological: Normal. absent: Headache Endocrine: Normal. absent: Diaphoresis Psychiatric: Normal. absent: Anxiety, Depression <Karim,Kavya - Last Filed: 09/11/16 18:08> Physical Exam Temperature: Afebrile Blood Pressure: Normal Pulse: Regular Respiratory Rate: Normal Appearance: Positive for: Well-Appearing, Non-Toxic Pain Distress: Moderate Mental Status: Positive for: Alert and Oriented X 3 - Systems Exam Head: Present: Atraumatic, Normocephalic Conjunctiva: Present: Normal Mouth: Present: Dry Neck: Present: Normal Range of Motion Respiratory/Chest: Present: Clear to Auscultation. No: Respiratory Distress, Accessory Muscle Use, Wheezes, Rales, Rhonchi Cardiovascular: Present: Regular Rate and Rhythm, Normal S1, S2. No: Murmurs Abdomen: Present: Tenderness, Normal Bowel Sounds, Guarding, Other (PD on left side). No: Distention Back: No: CVA Tenderness Upper Extremity: Present: Normal Inspection. No: Edema Lower Extremity: Present: Normal Inspection. No: Edema, CALF TENDERNESS Neurological: Present: GCS=15, CN II-XII Intact, Speech Normal Skin: Present: Warm, Dry, Normal Color. No: Rashes Psychiatric: Present: Alert, Oriented x 3, Normal Insight, Normal Concentration <Karmichelle,Kavya - Last Filed: 09/11/16 18:08> Vital Signs Reviewed: Yes <Keanu Anderson L - Last Filed: 09/11/16 18:38> Vital Signs Temp Pulse Resp BP Pulse Ox 09/11/16 14:25 78 18 98 09/11/16 12:19 72 18 128/79 98 09/11/16 10:24 97.9 F 89 19 125/73 99 Medical Decision Making - EKG Interpretation Interpreted by ED Physician: Yes Type: 12 lead EKG <Karim,Kavya - Last Filed: 09/11/16 18:08> <Keanu Anderson L - Last Filed: 09/11/16 18:38> ED Course and Treatment: Abd pain can be 2/2 peritonitis, pancreatitis, cholecystitis, OR Will check: CT abd/pelvis with PO contraat CBC with diff CMP Lipase Cardiac iso 09/11/16 11:05 09/11/16 12:50 Patient was given Motrin 800 mg po. Patient states that miladys has improved slightly. Patient drinking contrast for CT abd/pelvis 09/11/16 14:37 Patient is reevaluated. Pain has improved. Abdominal tenderness has also improved. (Kavya Gamez) A 51 year old male with abdominal pain. In agreement with resident note, which includes further HPI details. Patient was seen and evaluated with resident, came up with plan and treatment together. On reevaluation, abdomen soft. Mild epigastric tenderness but improved. WBC nl. Patient states he feels much better. He says he's very complaint with this dialysis. He also is on Calcium at home. (Keanu Anderson) - Lab Interpretations Lab Results: 09/11/16 10:00 09/11/16 10:00 Lab Results 09/11/16 13:00: Phosphorus 5.4 H, Magnesium 1.7 09/11/16 10:00: Sodium 137, Potassium 4.0, Chloride 95 L, Carbon Dioxide 28, Anion Gap 18, BUN 52 H, Creatinine 15.7 H*, Est GFR ( Amer) 4, Est GFR ( Non-Af Amer) 3, Random Glucose 106, Calcium 6.9 L*, Total Bilirubin 1.0, AST 18 , ALT 19, Alkaline Phosphatase 73, Lactate Dehydrogenase 456, Total Creatine Kinase 129, Troponin I < 0.01, Total Protein 6.8, Albumin 3.7, Globulin 3.1, Albumin/Globulin Ratio 1.2, Lipase 67 09/11/16 10:00: WBC 5.4 D, RBC 3.81, Hgb 11.7 L, Hct 34.0 L, MCV 89.2, MCH 30.7 , MCHC 34.4, RDW 13.5, Plt Count 120, MPV 8.6, Gran % 87.5 H, Lymph % (Auto) 7.9 L, Mcleod % (Auto) 3.1, Eos % (Auto) 1.5, Baso % (Auto) 0.0, Gran # 4.76, Lymph # 0.4 L, Mcleod # 0.2, Eos # 0.1, Baso # 0.00 - RAD Interpretation Radiology Orders: 09/11/16 10:57 ABDOMEN & PELVIS [ABD & PELVIS PO CONTRAST ONLY] [CT] Stat - EKG Interpretation EKG Interpretation (Text): 09/11/16 11:07 NSR HR 80, No ST changes, normal axis, normal interval (Karim,Kavya) - Medication Orders Current Medication Orders: Discontinued Medications Calcium Gluconate 1,000 mg/ (Sodium Chloride) 110 mls @ 110 mls/hr IVPB ONCE ONE Stop: 09/11/16 12:59 Last Admin: 09/11/16 14:21 Dose: 110 mls/hr Ibuprofen (Motrin Tab) 800 mg PO STAT STA Stop: 09/11/16 10:59 Last Admin: 09/11/16 11:19 Dose: 800 mg Iohexol (Omnipaque 240 (50 Ml)) Confirm Administered Dose 50 ml .ROUTE .STK-MED ONE Stop: 09/11/16 11:02 <Kavya Gamez - Last Filed: 09/11/16 18:08> - PA / PRESSURE SEALER AND TESTER / Resident Statement MD/DO has reviewed & agrees with the documentation as recorded. MD/DO has examined the patient and agrees with the treatment plan. - Scribe Statement The provider has reviewed the documentation as recorded by the Scribe <Keanu Anderson - Last Filed: 09/11/16 18:38> - Scribe Statement Ju Cuevas Provider Scribe Attestation: All medical record entries made by the Scribe were at my direction and personally dictated by me. I have reviewed the chart and agree that the record accurately reflects my personal performance of the history, physical exam, medical decision making, and the department course for this patient. I have also personally directed, reviewed, and agree with the discharge instructions and disposition. (Keanu Anderson) Disposition/Present on Arrival - Present on Arrival Any Indicators Present on Arrival: No History of DVT/PE: No History of Uncontrolled Diabetes: No Urinary Catheter: No History of Decub. Ulcer: No History Surgical Site Infection Following: None - Disposition Have Diagnosis and Disposition been Completed?: Yes Disposition Time: 14:35 Patient Plan: Discharge <Kavya Gamez - Last Filed: 08/03/17 18:08> <Keanu Anderson Nilesh - Last Filed: 09/11/16 18:38> - Disposition Diagnosis: Abdominal pain, Hypocalcemia Disposition: HOME/ ROUTINE Condition: STABLE Additional Instructions: Chris Weston, thank you for letting us take care of you today. Your provider was Dr. Kavya Gamez. You were treated for abdominal pain. The emergency medical care you received today was directed at your acute symptoms. If you were prescribed any medication, please fill it and take as directed. It may take several days for your symptoms to resolve. Return to the Emergency Department if your symptoms worsen, do not improve, or if you have any other problems. Please contact your doctor or call one of the physicians/clinics you have been referred to that are listed on the Patient Visit Information form that is included in your discharge packet. Bring any paperwork you were given at discharge with you along with any medications you are taking to your follow up visit. Our treatment cannot replace ongoing medical care by a primary care provider (PCP) outside of the emergency department. Thank you for allowing the [facility] team to be part of your care today. If you had an X-Ray or CT scan: A Radiologist will review the ED reading if any change in treatment is needed we will contact you. If you had a blood, urine, or wound culture: It will take several days for the results, if any change in treatment is needed we will contact you. If you had an STI test: It will take 48 hours for the results. Please call after 1 week if you have not heard back. Referrals: PPDaibeverley Simons, [Primary Care Provider] - Follow up with primary Forms: [employer] (Persian)
[2016-09-11] MEDS ORDERED: Iohexol 240 (50 ml) ONE (11:01)
[2016-09-11 11:29] LABS: EOS # 0.1 (0.0-0.7); EOS % 1.5 % (1.5-5.0); GRAN # 4.76 (1.4-6.5); GRAN % 87.5 % (50.0-68.0); HEMOGLOBIN 11.7 gm/dL (14.0-18.0); LYMPH # 0.4 (1.2-3.4); LYMPH % 7.9 % (22.0-35.0); MEAN CELL VOLUME 89.2 fL (80.0-105.0); MEAN CORPUSCULAR HEMOGLOBIN 30.7 pg (25.0-35.0); MEAN CORPUSCULAR HGB CONC 34.4 g/dl (31.0-37.0); MEAN PLATELET VOLUME 8.6 fl (7.0-11.0); MONO # 0.2 (0.1-0.6); MONO % 3.1 % (1.0-6.0); PLATELET COUNT 120 10^3/uL (120.0-450.0); RBC 3.81 10^6/uL (3.5-6.1); RED CELL DISTRIBUTION WIDTH 13.5 % (11.5-14.5); WHITE BLOOD COUNT 5.4 10^3/ul (4.5-11.0)
[2016-09-11 11:40] LABS: ALB/GLOB RATIO 1.2 (1.1-1.8); ALBUMIN 3.7 g/dL (3.0-4.8); ALT/SGPT 19 U/L (7-56); AST/SGOT 18 U/L (15-59); BLOOD UREA NITROGEN 52 mg/dL (7-21); LIPASE 67 U/L (23-300)
[2016-09-11 11:45] LABS: GFR AFRICAN-AMERICAN 4; GFR NON-AFRICAN AMERICAN 3
[2016-09-11 11:50] LABS: CALCIUM 6.9 mg/dL (8.4-10.5); TROPONIN I < 0.01 ng/mL
--- NOTE | 2016-09-11 13:48 | CT ---
PROCEDURE: CT Abdomen and Pelvis without intravenous contrast HISTORY: diffuse abd pain COMPARISON: None. TECHNIQUE: Without contrast. Contrast Dose: Radiation dose: Total exam DLP = 519 mGy-cm. This CT exam was performed using one or more of the following dose reduction techniques: Automated exposure control, adjustment of the mA and/or kV according to patient size, and/or use of iterative reconstruction technique. FINDINGS: LOWER THORAX: Unremarkable. LIVER: Unremarkable. No gross lesion or ductal dilatation. GALLBLADDER AND BILE DUCTS: Unremarkable. PANCREAS: Unremarkable. No gross lesion or ductal dilatation. SPLEEN: Unremarkable. ADRENALS: Unremarkable. No mass. KIDNEYS AND URETERS: There is atrophy of the [place] kidneys. There is also a decrease in size of the right lower quadrant transplant kidney which is partially calcified. VASCULATURE: Unremarkable. No aortic aneurysm. BOWEL: Unremarkable. No obstruction. No gross mural thickening. APPENDIX: Unremarkable. Normal appendix. PERITONEUM: There is a mild amount of ascites. Peritoneal dialysis catheter is coiled in the pelvis. LYMPH NODES: Unremarkable. No enlarged lymph nodes. BLADDER: Unremarkable. REPRODUCTIVE: Unremarkable. BONES: No acute fracture. OTHER FINDINGS: None. IMPRESSION: Mild ascites probably related to peritoneal dialysis. No acute findings
[2016-09-11 14:22] LABS: MAGNESIUM 1.7 mg/dL (1.7-2.2)
[2016-09-11 14:25] VITALS: BP 128/79; RESP 18; O2SAT 98
[2016-09-11 14:29] VITALS: PULSE 78
--- NOTE | 2016-09-12 08:46 | CARD ---
APPROVED REPORT EKG Measurement Heart [id number] <Conclusion> Normal sinus rhythm Normal ECG Biphasic T waves V 4 - 6 no longer present c/w ECG 05/30/16
== END 2016-09-11 15:32 | disposition home or self-care (01) ==
LOC: ED 10:19
DX: R10.13 Epigastric pain (principal); E83.51 Hypocalcemia; N18.6 End stage renal disease; Z99.2 Dependence on renal dialysis
CPT/HCPCS: 74176; 80053; 82550; 83615; 83690; 83735; 84100; 84484; 85025; 93005; 96365; 99284; J0610; Q9966

== ENCOUNTER 2017-01-14 15:07 | Inpatient (IN) | payer MEDICARE, MEDICAID, OTHER ==
--- NOTE | 2017-01-14 16:20 | ED PDOC ---
Arrival/HPI - General Chief Complaint: Abnormal Labs Time Seen by Provider: 01/14/17 15:51 Historian: Patient - History of Present Illness Narrative History of Present Illness (Text): 01/14/17 16:16 51yo male with PMHx of hypertension , ESRD on dialysis MWF referred to ED by his Attendant Sales of h/H of 6.7. Patient admits to SOB and weakness. He denies previous history of anemia and transfusion. denies chest pain, fever, chills, melena, hematochezia, any other somatic complaint. Past Medical History - Provider Review Nursing Documentation Reviewed: Yes - Past History Past History: No Previous - Infectious Disease Hx of Infectious Diseases: None - Tetanus Immunization Tetanus Immunization: Unknown - Reproductive Currently : No - Past Medical History Past Medical History: Non-Contributing - Cardiac Hx Cardiac Disorders: No Hx Pacemaker: No - Pulmonary Hx Respiratory Disorders: No - Neurological Hx Paralysis: No - HEENT Hx HEENT Disorder: Yes (WEARS RX GLASSES) - Renal Hx Renal Disorder: Yes Hx Dialysis: Yes Type of Dialysis Access: PD Date of Last Dialysis Treatment: 01/14/17 Hx Renal Failure: Yes Other/Comment: llq abd peritoneal dialysis inserted 06/10/16. 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, pt performs peritoneal dialysis at home - Endocrine/Metabolic Hx Endocrine Disorders: No - Hematological/Oncological Hx Blood Disorders: No Hx Blood Transfusions: No - Integumentary Hx Dermatological Disorder: No - Musculoskeletal/Rheumatological Hx Musculoskeletal Disorders: No - Gastrointestinal Hx Gastrointestinal Disorders: No - Genitourinary/Gynecological Hx Genitourinary Disorders: Yes Other/Comment: ANURIC - Psychiatric Hx Psychophysiologic Disorder: Yes Hx Anxiety: Yes Hx Depression: Yes Hx Emotional Abuse: No Hx Physical Abuse: No Hx Substance Use: No - Surgical History Other/Comment: PD placement in the LLQ and dialysis port to chest removed. R kidney transplant - Anesthesia Hx Anesthesia: Yes Hx Anesthesia Reactions: No Hx Malignant Hyperthermia: No - Suicidal Assessment Feels Threatened In Home Enviroment: No Family/Social History - Physician Review Nursing Documentation Reviewed: Yes Family/Social History: Unknown Family HX Smoking Status: Never Smoked Hx Alcohol Use: No Hx Substance Use: No Allergies/Home Meds Allergies/Adverse Reactions: Allergies Iodine and Iodide Containing Produc Allergy (Verified 01/14/17 15:39) ANAPHYLAXIS shellfish derived Allergy (Verified 01/14/17 15:39) ANAPHYLAXIS Home Medications: Home Meds Medication Instructions Recorded Confirmed Tacrolimus [Prograf] 1.5 mg PO BID 05/15/13 01/14/17 Alprazolam 0.5 mg PO BID PRN 03/09/15 01/14/17 Ferric Citrate [Auryxia] 3 tab PO TID 05/30/16 01/14/17 Ondansetron [Zofran Tab] 4 mg PO BID PRN 05/30/16 01/14/17 cloNIDine [Catapres (RENAL)] 0.1 mg PO BID 05/30/16 01/14/17 Bisacodyl [Dulcolax] 1 tab PO DAILY 07/11/16 01/14/17 B Complex W-C No.20/Folic Acid 1 cap PO DAILY 01/14/17 01/14/17 [Nephrocaps Softgel] FLUoxetine [Prozac] 1 tab PO DAILY 01/14/17 01/14/17 predniSONE [predniSONE Tab] 5 mg PO DAILY 01/14/17 01/14/17 Review of Systems - Physician Review All systems were reviewed & negative as marked: Yes - Review of Systems Constitutional: Normal Eyes: Normal ENT: Normal Respiratory: SOB Cardiovascular: Normal Gastrointestinal: Normal Genitourinary Male: Normal Musculoskeletal: Normal Skin: Normal Neurological: Normal Endocrine: Normal Hemo/Lymphatic: Normal Psychiatric: Normal Physical Exam Vital Signs Reviewed: Yes Vital Signs Temp Pulse Resp BP Pulse Ox 01/14/17 19:19 98.6 F 98 H 16 166/100 H 01/14/17 19:05 98.6 F 87 18 154/100 H 100 01/14/17 19:02 98.6 F 88 16 154/100 H 01/14/17 15:43 98.2 F 93 H 17 155/92 H 100 Temperature: Afebrile Blood Pressure: Normal Pulse: Regular Respiratory Rate: Normal Appearance: Positive for: Well-Appearing, Non-Toxic, Comfortable Pain Distress: None Mental Status: Positive for: Alert and Oriented X 3 - Systems Exam Head: Present: Atraumatic, Normocephalic Pupils: Present: PERRL Extroacular Muscles: Present: EOMI Conjunctiva: Present: Normal Mouth: Present: Moist Mucous Membranes Neck: Present: Normal Range of Motion Respiratory/Chest: Present: Clear to Auscultation, Good Air Exchange. No: Respiratory Distress, Accessory Muscle Use Cardiovascular: Present: Regular Rate and Rhythm, Normal S1, S2. No: Murmurs Abdomen: Present: Normal Bowel Sounds. No: Tenderness, Distention, Peritoneal Signs Back: Present: Normal Inspection Upper Extremity: Present: Normal Inspection. No: Cyanosis, Edema Lower Extremity: Present: Normal Inspection. No: Edema Neurological: Present: GCS=15, CN II-XII Intact, Speech Normal Skin: Present: Warm, Dry, Normal Color. No: Rashes Psychiatric: Present: Alert, Oriented x 3, Normal Insight, Normal Concentration Medical Decision Making ED Course and Treatment: 01/14/17 18:09 Pt in ED for stated history. He was hemodynamically stable in ED H/H of 6.9 was noted in ED and @units PRBC was ordered EKG CXR Case was ERYN Solomonben and he recommends to pt be admitted to Dr. Rivers. pt's PMD Case was ERYN Rivers and he accepted pt into his service. 01/14/17 23:19 Pneumonia was noted on the chest xray blood culture was ordered Joaotho and Rocephin was ordered. - Lab Interpretations Lab Results: 01/14/17 16:00 01/14/17 16:00 Lab Results 01/14/17 16:30: Blood Type A POSITIVE, Antibody Screen Negative, Crossmatch See Detail, BBK History Checked Patient has bt 01/14/17 16:00: PT 14.0 H, INR 1.28 H, APTT 33.4 01/14/17 16:00: Sodium 136, Potassium 3.3 L, Chloride 96 L, Carbon Dioxide 32, Anion Gap 12, BUN 35 H, Creatinine 13.6 H*, Est GFR ( Amer) 5, Est GFR ( Non-Af Amer) 4, Random Glucose 111 H, Calcium 6.8 L*, Total Bilirubin 0.6, AST 26, ALT 27, Alkaline Phosphatase 84, Total Protein 6.1, Albumin 2.8 L, Globulin 3.3, Albumin/Globulin Ratio 0.8 L 01/14/17 16:00: WBC 5.6, RBC 2.28 L, Hgb 6.9 L*, Hct 21.3 L, MCV 93.4, MCH 30.3 , MCHC 32.4, RDW 13.1, Plt Count 221, MPV 9.1, Gran % 70.8 H, Lymph % (Auto) 14.7 L, Mayes % (Auto) 9.5 H, Eos % (Auto) 5.0, Baso % (Auto) 0.0, Gran # 3.95, Lymph # 0.8 L, Mayes # 0.5, Eos # 0.3, Baso # 0.00 - RAD Interpretation Radiology Orders: 01/14/17 17:24 CHEST PORTABLE [RAD] Stat - Medication Orders Current Medication Orders: Amlodipine Besylate (Norvasc) 10 mg PO DAILY [facility] Calcitriol (Rocaltrol) 0.25 mcg PO DAILY [facility] Calcium Acetate (Phoslo) 1,334 mg PO WM [facility] Clonidine HCl (Catapres) 0.1 mg PO BID PRN PRN Reason: Systolic Blood Pressure Last Admin: 01/14/17 20:38 Dose: 0.1 mg MAR Pulse and Blood Pressure Document 01/14/17 20:38 (Rec: 01/14/17 20:41 [email or web address]) Pulse Pulse Rate (60-90) 90 Blood Pressure Blood Pressure (100/60-150/90) 162/105 Polyethylene Glycol (Miralax) 17 gm PO DAILY PRN PRN Reason: Constipation Prednisone (Prednisone Tab) 5 mg PO DAILY [facility] Tacrolimus (Prograf Cap) 1 mg PO Q12 [facility] Last Admin: 01/14/17 22:03 Dose: 1 mg Tacrolimus (Prograf Cap) 0.5 mg PO Q12 [facility] Valsartan (Diovan) 320 mg PO DAILY [facility] Discontinued Medications Ceftriaxone Sodium (Rocephin 1 Gram Ivpb (D5w)) 1 gm in 100 mls @ 200 mls/hr IVPB STAT STA PRN Reason: Protocol Stop: 01/14/17 19:09 Azithromycin (Zithromax 500mg In Ns) 500 mg in 250 mls @ 167 mls/hr IVPB STAT STA PRN Reason: Protocol Stop: 01/14/17 20:10 Tacrolimus (Prograf Cap) 0.5 mg PO Q12 [facility] Last Admin: 01/14/17 22:18 Dose: 0.5 mg Disposition/Present on Arrival - Present on Arrival Any Indicators Present on Arrival: No History of DVT/PE: No History of Uncontrolled Diabetes: No Urinary Catheter: No History of Decub. Ulcer: No History Surgical Site Infection Following: None - Disposition Have Diagnosis and Disposition been Completed?: Yes Diagnosis: Renal failure, Symptomatic anemia, Pneumonia Disposition: HOSPITALIZED Disposition Time: 18:00 Patient Problems: Current Active Problems Problem Status Onset Pneumonia Acute Renal failure Acute Symptomatic anemia Acute Condition: FAIR
[2017-01-14 16:44] LABS: EOS # 0.3 (0.0-0.7); GRAN # 3.95 (1.4-6.5); GRAN % 70.8 % (50.0-68.0); LYMPH # 0.8 (1.2-3.4); LYMPH % 14.7 % (22.0-35.0); MEAN CELL VOLUME 93.4 fl (80.0-105.0); MEAN CORPUSCULAR HEMOGLOBIN 30.3 pg (25.0-35.0); MEAN CORPUSCULAR HGB CONC 32.4 g/dl (31.0-37.0); MEAN PLATELET VOLUME 9.1 fl (7.0-11.0); MONO # 0.5 (0.1-0.6); MONO % 9.5 % (1.0-6.0); RED CELL DISTRIBUTION WIDTH 13.1 % (11.5-14.5); WHITE BLOOD COUNT 5.6 10^3/ul (4.5-11.0)
[2017-01-14 16:49] LABS: HEMATOCRIT 21.3 % (42.0-52.0)
[2017-01-14 16:56] LABS: INR 1.28 (0.93-1.08); PARTIAL THROMBOPLASTIN TIME 33.4 Seconds (25.1-36.5)
[2017-01-14 17:20] LABS: ALB/GLOB RATIO 0.8 (1.1-1.8); BILIRUBIN,TOTAL 0.6 mg/dL (0.2-1.3); CALCIUM 6.8 mg/dL (8.4-10.5); POTASSIUM 3.3 mmol/L (3.6-5.0); TOTAL PROTEIN 6.1 g/dL (5.8-8.3)
--- NOTE | 2017-01-14 18:17 | RAD ---
HISTORY: admission COMPARISON: No prior. FINDINGS: LUNGS: The lungs are well inflated. There is right lower lobe airspace disease. No focal consolidation in the left lung. PLEURA: Small right pleural effusion, no pneumothorax apparent. CARDIOVASCULAR: Normal. OSSEOUS STRUCTURES: No significant abnormalities. VISUALIZED UPPER ABDOMEN: Normal. OTHER FINDINGS: None. IMPRESSION: Suspect right lower lobe pneumonia. Small right pleural effusion. Follow-up after medical management is recommended to ensure complete resolution.
[2017-01-14] MEDS ORDERED: cefTRIAXone 1 gm 1 GM/100 ML BAG IVPB STA (18:40)
[2017-01-14] MEDS ORDERED: Azithromycin 500MG/NS 250ml 500 MG/250 ML BAG IVPB STA (18:41)
--- NOTE | 2017-01-14 19:38 | CARD ---
APPROVED REPORT EKG Measurement Heart [id number] <Conclusion> Normal sinus rhythm Nonspecific T wave abnormality Abnormal ECG
[2017-01-14 20:32] VITALS: BMI 27.3
[2017-01-14] MEDS ORDERED: POLYETHYLENE GLYCOL 3350 17 GM/Dose PACKET PO PRN (20:33)
--- NOTE | 2017-01-14 21:39 | CP.PCM.CON ---
<Carlos Weeks - Last Filed: 01/14/17 23:31> History of Present Illness - History of Present Illness History of Present Illness: General Surgery- Dr. Alejo 51M pmhx chronic anemia and on peritoneal dialysis presents to [facility] ED recommended to come in by nephro for Hg less than 6.5. Patient states he has been short of breath on exertion. Surgery was consulted for possible PD catheter migration. Patient was seen by Dr. Alejo on Thursday in office due to patient stating dialysis was not completing. In office dialysis catheter was flushed and drawn back. following 2 days patient states that dialysis was not able to be fully completed. Currently denies: fevers, chills, chest pain, nausea, vomiting, diarrhea, headaches, numbness/tingling in extremities PMH: ESRD, IgA nephropathy, HTN PSH: PD catheter placement, renal transplant, c-scope tubular adenoma ALL: Iodine SocialHx: Denies ETOH, tobacco, recreational drug use Review of Systems - Review of Systems All systems: reviewed and no additional remarkable complaints except - Constitutional Constitutional: As Per HPI Past Patient History - Infectious Disease Hx of Infectious Diseases: None - Tetanus Immunizations Tetanus Immunization: Unknown - Past Social History Smoking Status: Never Smoked - CARDIAC Hx Cardiac Disorders: Yes (cardiac cath) Hx Heart Murmur: Yes Hx Hypertension: Yes - PULMONARY Hx Respiratory Disorders: Yes Hx Bronchitis: Yes - NEUROLOGICAL Hx Neurological Disorder: No - HEENT Hx HEENT Problems: Yes (WEARS RX GLASSES) - RENAL Hx Chronic Kidney Disease: Yes Hx Dialysis: Yes (daily) Hx Renal Failure: Yes Other/Comment: llq abd peritoneal dialysis inserted 06/10/16. 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, pt performs peritoneal dialysis at home - ENDOCRINE/METABOLIC Hx Endocrine Disorders: No - HEMATOLOGICAL/ONCOLOGICAL Hx Blood Disorders: Yes Hx Anemia: Yes - INTEGUMENTARY Hx Dermatological Problems: No - MUSCULOSKELETAL/RHEUMATOLOGICAL Hx Falls: No - GASTROINTESTINAL Hx Gastrointestinal Disorders: No Hx Gall Bladder Disease: Yes (stones) - GENITOURINARY/GYNECOLOGICAL Hx Genitourinary Disorders: Yes Other/Comment: ANURIC - PSYCHIATRIC Hx Psychophysiologic Disorder: Yes Hx Anxiety: Yes Hx Depression: Yes Hx Emotional Abuse: No Hx Physical Abuse: No - SURGICAL HISTORY Hx Surgeries: Yes Hx Kidney Transplant: Yes Other/Comment: PD placement in the LLQ and dialysis port to chest removed. R kidney transplant - ANESTHESIA Hx Anesthesia: Yes Hx Anesthesia Reactions: No Hx Malignant Hyperthermia: No Meds Allergies/Adverse Reactions: Allergies Allergy/AdvReac Type Severity Reaction Status Date / Time Iodine and Iodide Containing Allergy ANAPHYLAXIS Verified 01/14/17 15:39 Produc lactose Allergy DIARRHEA Verified 01/16/17 18:04 shellfish derived Allergy ANAPHYLAXIS Verified 01/14/17 15:39 - Medications Medications: Current Medications Amlodipine Besylate (Norvasc) 10 mg PO DAILY [facility] Calcitriol (Rocaltrol) 0.25 mcg PO DAILY [facility] Calcium Acetate (Phoslo) 1,334 mg PO WM [facility] Clonidine HCl (Catapres) 0.1 mg PO BID PRN PRN Reason: Systolic Blood Pressure Last Admin: 01/14/17 20:38 Dose: 0.1 mg Polyethylene Glycol (Miralax) 17 gm PO DAILY PRN PRN Reason: Constipation Prednisone (Prednisone Tab) 5 mg PO DAILY [facility] Tacrolimus (Prograf Cap) 0.5 mg PO Q12 [facility] Tacrolimus (Prograf Cap) 1 mg PO Q12 [facility] Valsartan (Diovan) 320 mg PO DAILY [facility] Physical Exam - Constitutional Appears: Non-toxic, No Acute Distress - Head Exam Head Exam: ATRAUMATIC - Eye Exam Eye Exam: EOMI. absent: Scleral icterus - ENT Exam Additional comments: papillary lesion on right lower lip, inside jose miguel border - Respiratory Exam Respiratory Exam: NORMAL BREATHING PATTERN. absent: Accessory Muscle Use, Respiratory Distress - Cardiovascular Exam Cardiovascular Exam: +S1, +S2. absent: Bradycardia, Tachycardia - GI/Abdominal Exam GI & Abdominal Exam: Soft. absent: Distended, Firm, Guarding, Rigid, Tenderness Additional comments: PD catheter in place. no sign of leakage or drainage - Neurological Exam Neurological exam: Alert, Oriented x3 - Psychiatric Exam Psychiatric exam: Normal Affect - Skin Skin Exam: Intact, Warm Results - Vital Signs Recent Vital Signs: Last Vital Signs Temp 98.7 F 01/14/17 20:04 Pulse 90 01/14/17 20:38 Resp 18 01/14/17 20:19 BP 162/105 H 01/14/17 20:38 Pulse Ox 100 01/14/17 19:05 - Labs Result Diagrams: 01/14/17 16:00 01/14/17 16:00 Assessment & Plan - Assessment and Plan (Free Text) Assessment: 51M w/ possible Peritoneal dialysis catheter migration Plan: - PD Catheter flushed and withdrawn at bedside will no limitations - Peritoneal dialysis tonight - will order CT scan to determine if migration of PD catheter has occurred - will follow - further recs per Dr. Sapna Weeks PGY1 <Ashok Alejo - Last Filed: 01/19/17 00:32> Results - Vital Signs Recent Vital Signs: Last Vital Signs Temp 98.3 F 01/17/17 06:00 Pulse 91 H 01/17/17 06:12 Resp 20 01/17/17 06:00 BP 158/108 H 01/17/17 10:10 Pulse Ox 95 01/17/17 06:00 - Labs Result Diagrams: 01/16/17 05:30 01/16/17 05:30 Assessment & Plan - Assessment and Plan (Free Text) Plan: Patient was seen and examined by me. I agree with assessment and plan as per resident's note.
--- NOTE | 2017-01-15 08:09 | CON ---
NEPHROLOGY CONSULTATION DATE: 01/14/2017 HISTORY OF PRESENT ILLNESS: The patient is a 51-year-old male with past medical history of IgA nephropathy, ESRD, on peritoneal dialysis status post living-related kidney donation in 2003, with transplant having failed in 2014; presented to ED after being found to be severely anemic on outpatient labs; Nephrology consulting for ESRD care. The patient was just discharged 8 days ago from [facility] where he was found to have peritonitis and was started on intraperitoneal vancomycin for Staphylococcus capitis that was grown from PD fluid; the patient was discharged from hospital with hemoglobin in the 9. The patient came to outpatient dialysis unit today for visit with the PD nurse; reportedly has been feeling very tired and short of breath lately; the patient's dry weight is about 160 pounds; however, he was weighed today at 180 pounds; while the patient can lie flat he gets short of breath, on walking a few blocks; has also been having increased leg swelling which is an aberration for him; and patient also reporting abdominal distention and is having difficulty with PD drainage. PD drainage has been very slow lately; the patient has been unable to achieve adequate ultrafiltration despite using high dextrose concentration PD fluid; PAST MEDICAL HISTORY: As above. The patient with two episodes of peritonitis since starting PD in 07/2016; the patient was also at [facility] past month for abdominal pain and was told that he needs an elective cholecystectomy, but that the procedure would need to be an opened one, so the patient wishes to defer for now. SOCIAL HISTORY: Denies smoking. FAMILY HISTORY: Mother with rheumatoid fever. REVIEW OF SYSTEMS: CONSTITUTIONAL: Appetite has been a erratic. HEENT: No visual difficulty. RESPIRATORY: As per HPI. CARDIOVASCULAR: No chest pain or palpitations. GI: Has been having issues with constipation, but improved on MiraLax and Senna, no vomiting. PSYCHIATRIC: History of anxiety, on Xanax p.r.n. also history of depression, improved on Prozac. VITAL SIGNS: This evening, blood pressure 166/100, heart rate 98, respirations 16, temperature 98.6, O2 sat 100% on room air. PHYSICAL EXAMINATION GENERAL: No distress. Conversing coherently in full sentences. HEENT: Moist mucous membranes. Nonicteric, appears pale. RESPIRATORY: Lungs clear to auscultation bilaterally. No rales or rhonchi. No wheezes. CARDIOVASCULAR: Heart sounds S1 and S2 normal. No murmurs or gallops or rubs. GI: Abdomen soft, markedly distended, nontender. SKIN: Warm. No cyanosis. EXTREMITIES: 2+ bilateral lower leg pitting edema. PSYCHIATRIC: Normal mood, normal affect. LABORATORY DATA: CBC: WBC 5.6, hemoglobin 6.9, hematocrit 21.3, platelets 221. Chemistry panel; sodium 136, potassium 3.3, chloride 96, bicarb 32, BUN 35, creatinine 13.6, glucose 111, calcium 6.8, albumin 2.8. Chest x-ray: Possible venous congestion noted. ASSESSMENT/PLAN 1. End-stage renal disease, on peritoneal dialysis, the patient with malfunctioning of peritoneal dialysis catheter, but is able to complete exchanges; the patient is markedly above his dry weight in the setting of recent hospitalization during which the patient had inadequate ultrafiltration; likely also worsened by having peritonitis; otherwise, potassium is relatively stable (mild hypokalemia). 2. We will continue peritoneal dialysis exchanges manually; the patient will do 4.25% dextrose solution this evening and will also alternate between 4.25 and 2.5% solutions once more supplies are available. 3. Peritonitis. The patient is on intraperitoneal vancomycin 500 mg three times per week; last dose was given today. Therefore, the patient does not need to be dosed for another 2 days; if we cannot obtain more vancomycin, we will give one dose of IV vancomycin in 2 days; 4. Hypertensive end-stage renal disease, blood pressure markedly elevated in the setting of volume overload. The patient is on clonidine 0.1 mg b.i.d. (which she only uses p.r.n.), amlodipine 10 mg daily and valsartan 320 mg daily; will continue with same meds. 5. Chronic kidney disease, mineral bone disorder. The patient with hypocalcemia even when corrected for hypoalbuminemia, has secondary hyperparathyroidism, is on calcitriol 0.25 mcg daily. We will repeat PTH; will change phos binders to calcium acetate 2 tablets with meals; depending on PTH level may need to increase calcitriol dose. 6. Symptomatic anemia. The patient has had a marked drop in hemoglobin since last month from approximately 11 g to current level of 6.9 g. No overt source of blood loss. No melena or blood in stool noted. 7. The patient currently is on Aranesp as an outpatient, is getting 2 units packed red blood cell transfusion. We will obtain stool for occult blood and check iron studies, may need gastrointestinal evaluation. 8. Immunosuppression. The patient status post renal transplant, still on low dose of immunosuppressive meds with tacrolimus 1.5 mg b.i.d. and prednisone 5 mg daily, will continue the same. 9. Peritoneal catheter malfunction, consulting the patient's surgeon for possible laparoscopic revision of catheter. Kris Forbes MD
--- NOTE | 2017-01-15 08:11 | RAD ---
HISTORY: assess for PD catheter migration COMPARISON: CT scan 09/11/2016 FINDINGS: BOWEL: Normal. No obstruction. No free air. BONES: Normal. OTHER FINDINGS: None. IMPRESSION: The peritoneal dialysis catheter is coiled in the pelvis. The position is unchanged.
[2017-01-15 08:18] LABS: EOS # 0.3 (0.0-0.7); EOS % 5.4 % (1.5-5.0); GRAN # 3.5 (1.4-6.5); GRAN % 72.6 % (50.0-68.0); LYMPH # 0.6 (1.2-3.4); MEAN CELL VOLUME 91.5 fl (80.0-105.0); MEAN CORPUSCULAR HEMOGLOBIN 30.6 pg (25.0-35.0); MEAN CORPUSCULAR HGB CONC 33.5 g/dl (31.0-37.0); MEAN PLATELET VOLUME 9.1 fl (7.0-11.0); MONO # 0.5 (0.1-0.6); RED CELL DISTRIBUTION WIDTH 13.9 % (11.5-14.5); WHITE BLOOD COUNT 4.8 10^3/ul (4.5-11.0)
--- NOTE | 2017-01-15 09:01 | CP.PCM.PN ---
Subjective - Date & Time of Evaluation Date of Evaluation: 01/15/17 Time of Evaluation: 08:59 - Subjective Subjective: Progress note for nephrology, Dr. Forbes Pt is seen and examined at bedside. receive 2 units of PRBC overnight. Pt tolerated transfusions well. Also underwent peritoneal dialysis yesterday. Denies having any CP, SOB, abd pain, N/V. Patient does complain of constipation today, although last BM was yesterday. Patient is tolerating diet. Objective - Vital Signs/Intake and Output Vital Signs (last 24 hours): Temp Pulse Resp BP Pulse Ox 98.7 F 78 20 140/96 H 98 01/15/17 08:01 01/15/17 08:01 01/15/17 08:01 01/15/17 08:01 01/15/17 08:01 Intake and Output: 01/15/17 01/15/17 06:59 18:59 Intake Total 950 240 Output Total 300 Balance 650 240 - Medications Medications: Current Medications Amlodipine Besylate (Norvasc) 10 mg PO DAILY [facility] Calcitriol (Rocaltrol) 0.25 mcg PO DAILY [facility] Calcium Acetate (Phoslo) 1,334 mg PO WM [facility] Last Admin: 01/15/17 08:49 Dose: Not Given Clonidine HCl (Catapres) 0.1 mg PO BID PRN PRN Reason: Systolic Blood Pressure Last Admin: 01/14/17 20:38 Dose: 0.1 mg Polyethylene Glycol (Miralax) 17 gm PO DAILY PRN PRN Reason: Constipation Prednisone (Prednisone Tab) 5 mg PO DAILY [facility] Tacrolimus (Prograf Cap) 1.5 mg PO Q12 [facility] Valsartan (Diovan) 320 mg PO DAILY [facility] - Labs Labs: 01/15/17 08:00 PT 14.0 SECONDS (9.4-12.5) H 01/14/17 16:00 INR 1.28 (0.93-1.08) H 01/14/17 16:00 APTT 33.4 Seconds (25.1-36.5) 01/14/17 16:00 - Constitutional Appears: Non-toxic, No Acute Distress - Head Exam Head Exam: ATRAUMATIC, NORMOCEPHALIC - ENT Exam ENT Exam: Mucous Membranes Moist - Respiratory Exam Respiratory Exam: Clear to Ausculation Bilateral, NORMAL BREATHING PATTERN. absent: Accessory Muscle Use, Rales, Rhonchi, Wheezes, Respiratory Distress - Cardiovascular Exam Cardiovascular Exam: REGULAR RHYTHM, +S1, +S2. absent: Gallop, Rubs, Murmur - GI/Abdominal Exam GI & Abdominal Exam: Soft, Normal Bowel Sounds. absent: Guarding, Rigid, Tenderness, Organomegaly - Neurological Exam Neurological Exam: Alert, Awake, Oriented x3 - Psychiatric Exam Psychiatric exam: Normal Affect, Normal Mood - Skin Skin Exam: Dry, Intact, Normal Color, Warm Assessment and Plan - Assessment and Plan (Free Text) Assessment: 51 year old male with past medical history of IgA nephropathy, ESRD currently on peritoneal dialysis status-post living-related kidney donation in 2003, transplant fail in 2014 is admitted to hospital for acute drop in hgb to 6.7. Patient was discharge from hospital after being admitted for peritonitis. He was discharge with Vancomycin. Patient was also having difficulty with completing the peritoneal dialysis with suspicion of migration of dialysis catheter Plan: 1. End stage renal disease on peritoneal dialysis - Underwent peritoneal dialysis last night. however, with elevation on patient' s dry weight from 160 (known from recent hospitalization) to 180, there is suspicion that there is malfunctioning of dialysis catheter. 2. Malfunctioning peritoneal dialysis catheter - Dr. Alejo is consulted for evaluation of catheter 3. Peritonitis - Patient is currently on intraperitoneal vancomycin 500 mg three times per week. Last dose given on 01/14 4. Hypertensive end stage renal disease - continue amlodipine 10 mg po qd, Clonidine 0.1 mg PO BID, and Valsartan 320 mg po qd. 5. Chronic kidney disease mineral bone disorder - Will check PTH - Currently on Calcitrol 0.25 mg po qd and phoslo 6. Symptomatic anemia - Likely due to ESRD. Denies overt bleeding - transfused 2 units - Last colonoscopy 06/2016. results showed sigmoid diverticulosis and internal hemorrhoids - Will check stool for occult bleeding - GI Dr. Perales is consulted. patient will undergo upper endoscopy tomorrow morning. NPO past midnight. - Patient on Aranesp 7. History of kidney transplant - Patient on immunosuppression Prograf 1.5 mg po bid and prednisone 5 mg po qd All orders and recs per Dr. Forbes
[2017-01-15 09:17] LABS: ALB/GLOB RATIO 0.8 (1.1-1.8); BILIRUBIN,TOTAL 0.7 mg/dL (0.2-1.3); CALCIUM 6.5 mg/dL (8.4-10.5); POTASSIUM 3.4 mmol/L (3.6-5.0); TOTAL PROTEIN 5.3 g/dL (5.8-8.3)
--- NOTE | 2017-01-15 09:40 | CP.PCM.PN ---
<Feliciano Grayson - Last Filed: 01/15/17 09:37> Subjective - Date & Time of Evaluation Date of Evaluation: 01/15/17 Time of Evaluation: 09:37 - Subjective Subjective: Surgery Pt s&e. Pt received 2PRBC. Hgb 6.9->8.9. Denies F/C/N/V/D/CP/SOB. reports having peritoneal dialysis overnight. Reports unable to aspirate completely and feels distended. More every day. Objective - Vital Signs/Intake and Output Vital Signs (last 24 hours): Temp Pulse Resp BP Pulse Ox 98.7 F 78 20 140/96 H 98 01/15/17 08:01 01/15/17 08:01 01/15/17 08:01 01/15/17 08:01 01/15/17 08:01 Intake and Output: 01/15/17 01/15/17 06:59 18:59 Intake Total 950 240 Output Total 300 Balance 650 240 - Medications Medications: Current Medications Amlodipine Besylate (Norvasc) 10 mg PO DAILY [facility] Calcitriol (Rocaltrol) 0.25 mcg PO DAILY [facility] Calcium Acetate (Phoslo) 1,334 mg PO WM [facility] Last Admin: 01/15/17 08:49 Dose: Not Given Clonidine HCl (Catapres) 0.1 mg PO BID PRN PRN Reason: Systolic Blood Pressure Last Admin: 01/14/17 20:38 Dose: 0.1 mg Polyethylene Glycol (Miralax) 17 gm PO DAILY PRN PRN Reason: Constipation Prednisone (Prednisone Tab) 5 mg PO DAILY [facility] Tacrolimus (Prograf Cap) 1.5 mg PO Q12 [facility] Valsartan (Diovan) 320 mg PO DAILY [facility] - Labs Labs: 01/15/17 08:00 01/15/17 08:00 PT 14.0 SECONDS (9.4-12.5) H 01/14/17 16:00 INR 1.28 (0.93-1.08) H 01/14/17 16:00 APTT 33.4 Seconds (25.1-36.5) 01/14/17 16:00 - Constitutional Appears: No Acute Distress - Head Exam Head Exam: ATRAUMATIC, NORMAL INSPECTION, NORMOCEPHALIC - Eye Exam Eye Exam: EOMI, Normal appearance, PERRL Pupil Exam: NORMAL ACCOMODATION, PERRL - ENT Exam ENT Exam: Mucous Membranes Moist, Normal Exam - Neck Exam Neck Exam: Full ROM, Normal Inspection. absent: Lymphadenopathy - Respiratory Exam Respiratory Exam: Clear to Ausculation Bilateral, NORMAL BREATHING PATTERN - Cardiovascular Exam Cardiovascular Exam: REGULAR RHYTHM, +S1, +S2. absent: Murmur - GI/Abdominal Exam GI & Abdominal Exam: Soft, Normal Bowel Sounds. absent: Distended, Firm, Guarding, Rigid, Tenderness Additional comments: PD catheter in place. No signs of infection - Extremities Exam Extremities Exam: Full ROM, Normal Capillary Refill, Normal Inspection. absent : Joint Swelling, Pedal Edema - Back Exam Back Exam: NORMAL INSPECTION - Neurological Exam Neurological Exam: Alert, Awake, CN II-XII Intact, Normal Gait, Oriented x3 - Psychiatric Exam Psychiatric exam: Normal Affect, Normal Mood - Skin Skin Exam: Dry, Intact, Normal Color, Warm. absent: Erythema Assessment and Plan - Assessment and Plan (Free Text) Assessment: 51M w/ possible Peritoneal dialysis catheter migration: unable to complete PD Plan: -OR tomorrow Fri at 1pm -NPO after midnight - Daily Peritoneal dialysis DW Dr. Alejo <Ashok Alejo - Last Filed: 01/19/17 00:34> Objective - Vital Signs/Intake and Output Vital Signs (last 24 hours): Temp Pulse Resp BP Pulse Ox 98.3 F 91 H 20 158/108 H 95 01/17/17 06:00 01/17/17 06:12 01/17/17 06:00 01/17/17 10:10 01/17/17 06:00 - Labs Labs: 01/16/17 05:30 01/16/17 05:30 PT 14.0 SECONDS (9.4-12.5) H 01/14/17 16:00 INR 1.28 (0.93-1.08) H 01/14/17 16:00 APTT 33.4 Seconds (25.1-36.5) 01/14/17 16:00 Assessment and Plan - Assessment and Plan (Free Text) Plan: Patient was seen and examined by me. I agree with assessment and plan as per resident's note.
[2017-01-15 13:08] LABS: BODY FLUID TYPE PERITONEAL/ASCITES
[2017-01-15] MEDS ORDERED: Vancomycin 1gm in NS 250ml 1 GM/250 ML BAG IVPB STA (13:39)
--- NOTE | 2017-01-15 13:39 | CT ---
PROCEDURE: CT Abdomen and Pelvis without intravenous contrast HISTORY: acute anemia COMPARISON: None. TECHNIQUE: Without contrast. Contrast Dose: Radiation dose: Total exam DLP = 932 mGy-cm. This CT exam was performed using one or more of the following dose reduction techniques: Automated exposure control, adjustment of the mA and/or kV according to patient size, and/or use of iterative reconstruction technique. FINDINGS: LOWER THORAX: Small pleural effusions LIVER: Unremarkable. No gross lesion or ductal dilatation. GALLBLADDER AND BILE DUCTS: Unremarkable. PANCREAS: Unremarkable. No gross lesion or ductal dilatation. SPLEEN: Unremarkable. ADRENALS: Unremarkable. No mass. KIDNEYS AND URETERS: Severe atrophy both kidneys as well is calcification and atrophy of the right lower quadrant transplant kidney VASCULATURE: Unremarkable. No aortic aneurysm. BOWEL: Unremarkable. No obstruction. No gross mural thickening. APPENDIX: Unremarkable. Normal appendix. PERITONEUM: The peritoneal dialysis catheter is coiled in the pelvis. There is a small to moderate amount of peritoneal fluid. There is a small amount of intraperitoneal air most likely related to peritoneal dialysis. LYMPH NODES: Unremarkable. No enlarged lymph nodes. BLADDER: Unremarkable. REPRODUCTIVE: Unremarkable. BONES: No acute fracture. OTHER FINDINGS: None. IMPRESSION: The peritoneal dialysis catheter is coiled in the pelvis. There is a small to moderate amount of peritoneal fluid. There is a small amount of intraperitoneal air most likely related to peritoneal dialysis.
[2017-01-15] MEDS: Piperacillin/Tazobact 2.25gm 2.25 GM/100 ML BAG IV SCH ×2 (14:45→21:23)
[2017-01-15 14:48] LABS: BF GROSS APPEARANCE CLEAR (CLEAR)
[2017-01-15 14:49] LABS: BODY FLUID TOTAL COUNT 100 (0-0)
[2017-01-15] MEDS: AURYXIA 210 MG PO SCH (18:00)
--- NOTE | 2017-01-15 23:28 | HP ---
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 The patient has a history of IgA nephropathy with end-stage renal disease, currently on peritoneal dialysis. He is status post renal transplant approximately 10 years ago with rejection approximately 2 years ago. The patient was recently admitted to [facility] for peritonitis and was discharged approximately one week ago. He denies any fevers or chills at the present time. There is no abdominal pain. No nausea. No vomiting. No diarrhea. No melena. No bright red blood per rectum. No hematemesis. PAST MEDICAL HISTORY: As above. He also has history of hypertension and asthma. PAST SURGICAL HISTORY: Status post renal transplant with rejection approximately 2 years ago. ALLERGIES: THE PATIENT HAS ALLERGIES TO IODINE, SHELL FISH, AND IODINATED CONTRAST WHERE HE GETS SWELLING. CURRENT MEDICATIONS: Include clonidine 0.1 mg b.i.d., Diovan 320 mg daily, MiraLax 17 g daily, Norvasc 10 mg daily, PhosLo 2 tabs t.i.d. with meals, prednisone 5 mg daily, Prograf 1.5 mg q. 12 hours, Rocaltrol 0.25 mcg p.o. daily. REVIEW OF SYSTEMS: Essentially as above. The patient denies any chest pain, shortness of breath, or swelling of the legs. There is no jaundice. SOCIAL HISTORY: The patient has no history of tobacco or alcohol use. He is independent with ADLs and IADLs. PHYSICAL EXAMINATION: GENERAL: The patient is a well-developed male, in no acute distress. VITAL SIGNS: Blood pressure 140/96, temperature 98.7, pulse 78, respiratory rate 20. HEENT: Head is normocephalic and atraumatic. Pupils, equal, round, and reactive to light. Extraocular movements intact. NECK: Supple. No thyromegaly. No carotid bruit. No adenopathy. LUNGS: Clear. HEART: Regular rate and rhythm. ABDOMEN: Soft and nontender. Bowel sounds are normoactive. Dialysis catheter is intact with no erythema. No discharge at the insertion site. EXTREMITIES: Without cyanosis, clubbing, or edema. NEUROLOGIC: The patient is awake and oriented x3 without focal, sensory, or motor deficits. SKIN: Warm and dry. LABORATORY DATA: WBC is 4.8, hemoglobin 8.7, status post transfusion 2 units packed RBCs, hematocrit 26.0. Sodium 137, potassium 3.4, chloride 98, CO2 of 28, BUN 34, creatinine 13.8, calcium 6.5. Chest x-ray shows possible right lower lobe pneumonia. CT of the abdomen and pelvis shows peritoneal dialysis catheter, which is quelled in the pelvis with [id number] amount of peritoneal fluid and intraperitoneal air. IMPRESSION: 1. Anemia, rule out gastrointestinal bleed, rule out secondary to chronic renal failure. 2. Status post peritonitis. 3. End-stage kidney disease/IgA nephropathy status post transplant with rejection. 4. Hypertension. PLAN: The patient is admitted to medical-surgical floor. Nephrology consultation by Dr. Forbes. We will obtain Infectious Disease consult from Dr. Reid. The patient is scheduled for the OR for repositioning of his dialysis catheter. THELMA Rosas MD
--- NOTE | 2017-01-16 00:55 | CON ---
DATE: 01/15/2017 LOCATION: The patient is seen in room 369, bed 1. CHIEF COMPLAINT: Weakness times several days. HISTORY OF PRESENT ILLNESS: This is a 51-year-old male with past medical history significant for chronic renal failure, on peritoneal dialysis at home. He was recently diagnosed with peritonitis. He was told he had a tapping of the fluid and there are too many wbc's and was given antibiotics and now admitted with anemia, and Infectious Disease consultation requested to rule out any infections that may be contributing to this anemia. The patient states he has not had any fevers, any chills. No chest pain, shortness of breath. No diarrhea or constipation. There is some abdominal discomfort. PAST MEDICAL HISTORY: Significant for chronic renal failure, on peritoneal dialysis; recent diagnosis of peritonitis; IgA nephropathy and renal transplant. The patient was discharged 8 days ago from [facility], found to have peritonitis, was given intraperitoneal vancomycin for Staph capitis grown from the peritoneal fluid. Significant for hypertension, anemia, anxiety and depression. PAST SURGICAL HISTORY: Significant for renal transplant. ALLERGIES: THE PATIENT IS ALLERGIC TO IODINE, IODINE-CONTAINING PRODUCTS AND SHELLFISH. MEDICATIONS AT HOME: Include the patient to be on prednisone at 5 mg daily, Catapres and Prograf, which is tacrolimus in addition to Zofran, Prozac, Dulcolax, vitamins, and alprazolam. PHYSICAL EXAMINATION: GENERAL: He is in bed, in no acute distress. VITAL SIGNS: Temperature of 98 with heart rate of 78, it was up to 93 to 95; respiratory rate of 20 and blood pressure is 140/90. HEENT: Unremarkable. NECK: Supple. LUNGS: Have decreased breath sounds. HEART: Normal S1, S2. ABDOMEN: Mild tenderness. No rebound or guarding. No masses. LABORATORY EXAMINATION: Reveals a white count of 5.6, hemoglobin of 6 and platelets of 221. Chemistries reveal a BUN of 35, creatinine of 13. Calcium is 6. Peritoneal fluid studies have been ordered and pending. Review of old cultures reveals coag-negative staph in the peritoneal fluid and that was in 07/2016 and coag-negative staph in the blood cultures. The patient also had a history of Pseudomonas from a catheter site in 2016. ASSESSMENT AND PLAN: This is a 51-year-old male with a history of IgA nephropathy; chronic renal failure, on peritoneal dialysis at home with history of hypertension; anemia; anxiety; depression; history of right kidney transplant, which failed; was ALLERGIC TO IODINE who recently had a diagnosis of peritonitis, was given intraperitoneal vancomycin and at this time, must rule out peritoneal dialysis-peritonitis and rule out chemical-induced peritonitis. We will give the patient a dose of intravenous vancomycin and start the patient on Zosyn and pending blood cultures and peritoneal cultures, peritoneal cell count, Gram stain, and we will follow closely with you. Case discussed with Dr. Rivers. We will check on the blood cultures also and the patient had an HIV test in 2015, which was negative. We will follow with you. Baldomero Reid MD
--- NOTE | 2017-01-16 02:44 | CON ---
DATE: 01/15/2017 HISTORY OF PRESENT ILLNESS: This is a 51-year-old patient with history of end-stage renal disease on hemodialysis, history of end-stage renal disease secondary to the IgA nephropathy had transplant in living-related donor transplant in 2003, which failed. The patient was recently in [facility] with peritonitis. The patient has been on peritoneal dialysis and he was found to have peritonitis and he was treated with antibiotics and also have a intraperitoneal vancomycin for Staphylococcus capitis that was grown from peritoneal dialysis fluid. The patient was discharged to home from the hospital recently with a hemoglobin of 8, and the patient was seen in the outpatient dialysis unit and was found to be very weak and tired and distended abdomen. The patient was found to have the labs with hemoglobin of 6.9, sent to the emergency room for evaluation. PAST MEDICAL HISTORY: Other past medical history significant as above. SOCIAL HISTORY: Denies smoking. FAMILY HISTORY: Mother has rheumatoid fever . Family history is noncontributory. REVIEW OF SYSTEMS: Positive as above. Other systems reviewed. PHYSICAL EXAMINATION: GENERAL: The patient is lying on the bed, not in acute distress. VITAL SIGNS: Temperature is 98.4, pulse 100, blood pressure is 145/95, respirations 18, and O2 saturations 96%. HEENT: Atraumatic, anicteric. NECK: Supple. HEART: S1 and S2 heard. ABDOMEN: Soft. There was a dialysis catheter present. EXTREMITIES: No cyanosis. No clubbing. NEUROLOGIC: Alert and oriented. Moves all the extremities. LABORATORY DATA: Hemoglobin 8.7 status post 2 units transfusion, hematocrit 26 status post 2 units transfusion. INR 1.28. IMPRESSION: This 51-year-old patient with end-stage renal disease, failed living-related donor transplant in 2013, on peritoneal dialysis, had recently been admitted to hospital with peritonitis. The patient has been treated with antibiotics and intraperitoneal instillation. The patient is now worsening, the patient admitted with increased tiredness, weakness and also abdominal pain. The patient had been found to be anemic, we transfused 2 units, his hemoglobin has gone up. The CT scan requested, CT of the abdomen and pelvis and it was reviewed, peritoneal dialysis catheter in place and curled. Otherwise, unremarkable. We would recommend upper gastrointestinal endoscopy will be scheduled in a.m. Continue the antibiotics and will continue to closely followup care. The patient would benefit from upper GI endoscopy to further evaluate significant anemia, drop in blood count. Thank you very much for allowing us to participate in the care of the patient. Emre Perales MD
[2017-01-16] MEDS: Piperacillin/Tazobact 2.25gm 2.25 GM/100 ML BAG IV SCH ×3 (05:42→22:57)
[2017-01-16] MEDS ORDERED: Nitroglycerin 2% Ointment Foilpak UD TOP ONE ×2 (06:06→06:18)
[2017-01-16 06:50] LABS: EOS # 0.2 (0.0-0.7); EOS % 3.1 % (1.5-5.0); GRAN # 4.32 (1.4-6.5); GRAN % 78.2 % (50.0-68.0); HEMATOCRIT 25.1 % (42.0-52.0); LYMPH # 0.5 (1.2-3.4); LYMPH % 9.6 % (22.0-35.0); MEAN CELL VOLUME 91.9 fl (80.0-105.0); MEAN CORPUSCULAR HEMOGLOBIN 30.4 pg (25.0-35.0); MEAN CORPUSCULAR HGB CONC 33.1 g/dl (31.0-37.0); MEAN PLATELET VOLUME 9.4 fl (7.0-11.0); MONO # 0.5 (0.1-0.6); MONO % 9.1 % (1.0-6.0); WHITE BLOOD COUNT 5.5 10^3/ul (4.5-11.0)
[2017-01-16 07:56] LABS: ALB/GLOB RATIO 0.9 (1.1-1.8); BILIRUBIN,TOTAL 0.6 mg/dL (0.2-1.3); CALCIUM 6.4 mg/dL (8.4-10.5); POTASSIUM 3.2 mmol/L (3.6-5.0); TOTAL PROTEIN 5.3 g/dL (5.8-8.3)
[2017-01-16] MEDS ORDERED: Propofol 10 mg/ml Inj (20 ML) ONE ×2 (08:14→14:35)
[2017-01-16] MEDS ORDERED: Succinylcholine 200 mg/10 ml Inj IV ONE (08:45)
[2017-01-16] MEDS ORDERED: Midazolam 2 MG/2 ML VIAL ONE ×2 (08:58→14:34)
--- NOTE | 2017-01-16 09:12 | CP.PCM.PN ---
Subjective - Date & Time of Evaluation Date of Evaluation: 01/16/17 Time of Evaluation: 09:11 - Subjective Subjective: Progress note for nephrology, Dr. Forbes Pt is seen and examined at bedside. No acute events overnight. patient is to have endoscopy procedure this morning. Pt was NPO past midnight. He states that he had 2 BMs yesterday. Continues to complain of abd distention. PD yesterday. Denies having any CP, SOB, N/V, F/C. Objective - Vital Signs/Intake and Output Vital Signs (last 24 hours): Temp Pulse Resp BP Pulse Ox 98.5 F 87 20 155/101 H 97 01/16/17 08:56 01/16/17 08:56 01/16/17 08:56 01/16/17 08:56 01/16/17 08:56 Intake and Output: 01/16/17 01/16/17 06:59 18:59 Intake Total 840 Balance 840 - Medications Medications: Current Medications Amlodipine Besylate (Norvasc) 10 mg PO DAILY [facility] Last Admin: 01/15/17 11:07 Dose: 10 mg Calcitriol (Rocaltrol) 0.25 mcg PO DAILY [facility] Last Admin: 01/15/17 11:06 Dose: 0.25 mcg Clonidine HCl (Catapres) 0.1 mg PO BID PRN PRN Reason: Systolic Blood Pressure Last Admin: 01/14/17 20:38 Dose: 0.1 mg Home Med (Home Med) 2 unit PO TID [facility] Last Admin: 01/15/17 18:00 Dose: 2 unit Piperacillin Sod/Tazobactam Sod (Zosyn 2.25 Gm In 0.9% 100 Ml) 2.25 gm in 100 mls @ 100 mls/hr IV Q8 JASSON PRN Reason: Protocol Stop: 01/25/17 14:01 Last Admin: 01/16/17 05:42 Dose: 100 mls/hr Potassium Chloride (Potassium Chloride 20 Meq/100 Ml) 20 meq in 100 mls @ 50 mls/hr IVPB ONCE ONE Stop: 01/16/17 10:25 Ondansetron HCl (Zofran Inj) 4 mg IVP Q6H PRN PRN Reason: Nausea/Vomiting Last Admin: 01/15/17 22:52 Dose: 4 mg Pantoprazole Sodium (Protonix Inj) 40 mg IVP Q12 [facility] Polyethylene Glycol (Miralax) 17 gm PO DAILY PRN PRN Reason: Constipation Last Admin: 01/15/17 11:10 Dose: 17 gm Prednisone (Prednisone Tab) 5 mg PO DAILY [facility] Last Admin: 01/15/17 11:06 Dose: 5 mg Sennosides (Senokot Tab) 8.6 mg PO HS [facility] Last Admin: 01/15/17 21:18 Dose: 8.6 mg Tacrolimus (Prograf Cap) 1.5 mg PO Q12 [facility] Last Admin: 01/15/17 21:18 Dose: 1.5 mg Valsartan (Diovan) 320 mg PO DAILY [facility] Last Admin: 01/15/17 11:06 Dose: 320 mg - Labs Labs: 01/16/17 05:30 01/16/17 05:30 PT 14.0 SECONDS (9.4-12.5) H 01/14/17 16:00 INR 1.28 (0.93-1.08) H 01/14/17 16:00 APTT 33.4 Seconds (25.1-36.5) 01/14/17 16:00 - Constitutional Appears: Non-toxic, No Acute Distress - Head Exam Head Exam: ATRAUMATIC - ENT Exam ENT Exam: Mucous Membranes Moist - Respiratory Exam Respiratory Exam: Clear to Ausculation Bilateral, NORMAL BREATHING PATTERN. absent: Accessory Muscle Use, Rales, Rhonchi, Wheezes, Respiratory Distress - Cardiovascular Exam Cardiovascular Exam: REGULAR RHYTHM, +S1, +S2. absent: Gallop, Rubs, Murmur - GI/Abdominal Exam GI & Abdominal Exam: Distended, Soft. absent: Firm, Guarding, Rigid, Tenderness - Extremities Exam Extremities Exam: absent: Pedal Edema, Tenderness - Neurological Exam Neurological Exam: Alert, Awake, Oriented x3 - Psychiatric Exam Psychiatric exam: Normal Affect, Normal Mood - Skin Skin Exam: Dry, Intact, Normal Color, Warm Assessment and Plan - Assessment and Plan (Free Text) Assessment: 51 year old male with past medical history of IgA nephropathy, ESRD currently on peritoneal dialysis status-post living-related kidney donation in 2003, transplant fail in 2014 is being consulted for anemia and ESRD Plan: 1. End stage renal disease on peritoneal dialysis - PD to be done today 2. Malfunctioning peritoneal dialysis catheter - Pt is scheduled for OR laproscopic procedure today 3. Peritonitis - Patient is currently on intraperitoneal vancomycin 500 mg three times per week. Last dose given on 01/14 4. Hypertensive end stage renal disease - continue amlodipine 10 mg po qd, Clonidine 0.1 mg PO BID, and Valsartan 320 mg po qd. 5. Chronic kidney disease mineral bone disorder - Will check PTH - Currently on Calcitrol 0.25 mg po qd and phoslo 6. Symptomatic anemia - Likely due to ESRD. Denies overt bleeding - transfused 2 units - Last colonoscopy 06/2016. results showed sigmoid diverticulosis and internal hemorrhoids - GI Dr. Perales is consulted. Patient will undergo EGD this morning to look for signs of overt bleeding - Patient on Aranesp 7. History of kidney transplant - Patient on immunosuppression Prograf 1.5 mg po bid and prednisone 5 mg po qd All orders and recs per Dr. Forbes
[2017-01-16] MEDS ORDERED: Sodium Chloride 0.9% 1,000 ML IV SCH ×2 (09:15→16:15)
[2017-01-16] MEDS: AURYXIA 210 MG PO SCH ×3 (10:12→18:00)
--- NOTE | 2017-01-16 11:14 | CP.PCM.PN ---
Subjective - Date & Time of Evaluation Date of Evaluation: 01/16/17 Time of Evaluation: 10:30 - Subjective Subjective: no acute distress, no abd pain, no active GI bleeding, s/p EGD Objective - Vital Signs/Intake and Output Vital Signs (last 24 hours): Temp Pulse Resp BP Pulse Ox 98.4 F 78 15 159/110 H 97 01/16/17 09:44 01/16/17 09:44 01/16/17 09:44 01/16/17 10:09 01/16/17 09:44 Intake and Output: 01/16/17 01/16/17 06:59 18:59 Intake Total 840 Balance 840 - Medications Medications: Current Medications Amlodipine Besylate (Norvasc) 10 mg PO DAILY [facility] Last Admin: 01/16/17 10:09 Dose: 10 mg Calcitriol (Rocaltrol) 0.25 mcg PO DAILY [facility] Last Admin: 01/16/17 10:12 Dose: Not Given Clonidine HCl (Catapres) 0.1 mg PO BID PRN PRN Reason: Systolic Blood Pressure Last Admin: 01/14/17 20:38 Dose: 0.1 mg Home Med (Home Med) 2 unit PO TID [facility] Last Admin: 01/16/17 10:12 Dose: Not Given Piperacillin Sod/Tazobactam Sod (Zosyn 2.25 Gm In 0.9% 100 Ml) 2.25 gm in 100 mls @ 100 mls/hr IV Q8 JASSON PRN Reason: Protocol Stop: 01/25/17 14:01 Last Admin: 01/16/17 05:42 Dose: 100 mls/hr Potassium Chloride (Potassium Chloride 20 Meq/100 Ml) 20 meq in 100 mls @ 50 mls/hr IVPB Q2H [facility] Stop: 01/16/17 13:59 Last Admin: 01/16/17 10:24 Dose: Not Given Ondansetron HCl (Zofran Inj) 4 mg IVP Q6H PRN PRN Reason: Nausea/Vomiting Last Admin: 01/15/17 22:52 Dose: 4 mg Pantoprazole Sodium (Protonix Inj) 40 mg IVP Q12 [facility] Last Admin: 01/16/17 10:10 Dose: 40 mg Polyethylene Glycol (Miralax) 17 gm PO DAILY PRN PRN Reason: Constipation Last Admin: 01/15/17 11:10 Dose: 17 gm Prednisone (Prednisone Tab) 5 mg PO DAILY [facility] Last Admin: 01/15/17 11:06 Dose: 5 mg Sennosides (Senokot Tab) 8.6 mg PO HS [facility] Last Admin: 01/15/17 21:18 Dose: 8.6 mg Tacrolimus (Prograf Cap) 1.5 mg PO Q12 [facility] Last Admin: 01/16/17 10:12 Dose: Not Given Valsartan (Diovan) 320 mg PO DAILY [facility] Last Admin: 01/16/17 10:09 Dose: 320 mg - Labs Labs: 01/16/17 05:30 01/16/17 05:30 PT 14.0 SECONDS (9.4-12.5) H 01/14/17 16:00 INR 1.28 (0.93-1.08) H 01/14/17 16:00 APTT 33.4 Seconds (25.1-36.5) 01/14/17 16:00 - Respiratory Exam Respiratory Exam: NORMAL BREATHING PATTERN - Cardiovascular Exam Cardiovascular Exam: REGULAR RHYTHM - GI/Abdominal Exam GI & Abdominal Exam: Soft, Normal Bowel Sounds - Extremities Exam Extremities Exam: Normal Inspection - Neurological Exam Neurological Exam: Alert, Awake - Skin Skin Exam: Dry, Warm Assessment and Plan (1) Renal failure Status: Chronic (2) Hypertension Status: Chronic (3) Anemia Status: Acute - Assessment and Plan (Free Text) Plan: for repositioning of dialysis catheter today, infectious disease consult appreciated
[2017-01-16] MEDS ORDERED: Bupivacaine 0.5% Inj(30mL) ONE (13:18)
[2017-01-16] MEDS ORDERED: Rocuronium 10 mg/ml (5 ml) ONE (14:35)
[2017-01-16] MEDS ORDERED: Neostigmine Methylsulfate 3mg/3ml Syringe IV ONE (15:10)
[2017-01-16] MEDS ORDERED: HYDROmorphone 0.5 mg/0.5 ml ISec IVP PRN (16:02)
--- NOTE | 2017-01-16 16:05 | PCM.SURG1 ---
<Carlos Weeks - Last Filed: 01/16/17 16:02> Surgeon's Initial Post Op Note - Surgeon's Notes Surgeon: Dr. Alejo Cook Helper Juice: Dr. Jolley PGY4, PGY1 Pre-Operative Diagnosis: malpositioned peritoneal dialysis catheter Operative Findings: fluid in pelvis, collagenous and fibrinous material on catheter and on intra-abdominal contents, multiple adhesions. See op note Post-Operative Diagnosis: occuleded peritoneal dialysis catheter Operation Performed: repositioned peritoneal dialysis catheter Specimen/Specimens Removed: fibrinous material Estimated Blood Loss: EBL {In ML}: 3 Post-Op Condition: Good Date of Surgery/Procedure: 01/16/17 Time of Surgery/Procedure: 16:06 <Ashok Alejo - Last Filed: 01/19/17 00:35> Surgeon's Initial Post Op Note - Surgeon's Notes Operation Performed: Laparoscopic Revision of peritoneal dialysis catheter
--- NOTE | 2017-01-16 16:50 | CP.PCM.PN ---
Subjective - Date & Time of Evaluation Date of Evaluation: 01/16/17 Time of Evaluation: 10:40 - Subjective Subjective: Comfortable, no fevers. For repositioning of dialysis catheter today. Objective - Vital Signs/Intake and Output Vital Signs (last 24 hours): Temp Pulse Resp BP Pulse Ox 98.4 F 84 16 151/99 H 97 01/16/17 09:29 01/16/17 09:29 01/16/17 09:29 01/16/17 09:29 01/16/17 09:29 Intake and Output: 01/16/17 01/16/17 06:59 18:59 Intake Total 840 Balance 840 - Medications Medications: Current Medications Amlodipine Besylate (Norvasc) 10 mg PO DAILY [facility] Last Admin: 01/15/17 11:07 Dose: 10 mg Calcitriol (Rocaltrol) 0.25 mcg PO DAILY [facility] Last Admin: 01/15/17 11:06 Dose: 0.25 mcg Clonidine HCl (Catapres) 0.1 mg PO BID PRN PRN Reason: Systolic Blood Pressure Last Admin: 01/14/17 20:38 Dose: 0.1 mg Home Med (Home Med) 2 unit PO TID [facility] Last Admin: 01/15/17 18:00 Dose: 2 unit Piperacillin Sod/Tazobactam Sod (Zosyn 2.25 Gm In 0.9% 100 Ml) 2.25 gm in 100 mls @ 100 mls/hr IV Q8 JASSON PRN Reason: Protocol Stop: 01/25/17 14:01 Last Admin: 01/16/17 05:42 Dose: 100 mls/hr Potassium Chloride (Potassium Chloride 20 Meq/100 Ml) 20 meq in 100 mls @ 50 mls/hr IVPB ONCE ONE Stop: 01/16/17 10:25 Sodium Chloride (Sodium Chloride 0.9%) 1,000 mls @ 100 mls/hr IV .Q10H JASSON Ondansetron HCl (Zofran Inj) 4 mg IVP Q6H PRN PRN Reason: Nausea/Vomiting Last Admin: 01/15/17 22:52 Dose: 4 mg Pantoprazole Sodium (Protonix Inj) 40 mg IVP Q12 [facility] Polyethylene Glycol (Miralax) 17 gm PO DAILY PRN PRN Reason: Constipation Last Admin: 01/15/17 11:10 Dose: 17 gm Prednisone (Prednisone Tab) 5 mg PO DAILY [facility] Last Admin: 01/15/17 11:06 Dose: 5 mg Sennosides (Senokot Tab) 8.6 mg PO HS [facility] Last Admin: 01/15/17 21:18 Dose: 8.6 mg Tacrolimus (Prograf Cap) 1.5 mg PO Q12 [facility] Last Admin: 01/15/17 21:18 Dose: 1.5 mg Valsartan (Diovan) 320 mg PO DAILY [facility] Last Admin: 01/15/17 11:06 Dose: 320 mg - Labs Labs: 01/16/17 05:30 01/16/17 05:30 PT 14.0 SECONDS (9.4-12.5) H 01/14/17 16:00 INR 1.28 (0.93-1.08) H 01/14/17 16:00 APTT 33.4 Seconds (25.1-36.5) 01/14/17 16:00 - Constitutional Appears: Non-toxic - Head Exam Head Exam: NORMAL INSPECTION - Respiratory Exam Respiratory Exam: Decreased Breath Sounds - Cardiovascular Exam Cardiovascular Exam: +S1, +S2 - GI/Abdominal Exam GI & Abdominal Exam: Soft. absent: Tenderness Additional comments: PD catheter in place Assessment and Plan - Assessment and Plan (Free Text) Plan: Assessment R/O peritonitis related to PD catheter in this patient with ESRD from IgA nephropathy with history of right kidney transplant which failed recent treatment for peritonitis with coagulase negative staph HTN chronic anemia anxiety depression Plan Given a dose of Vanco IV and continue Zosyn pending final peritoneal fluid cx - peritoneal fluid only shows 40 WBC's making infection less likely - if peritoneal fluid cx are negative will d/c antibiotics will monitor clinically
[2017-01-17] MEDS: Piperacillin/Tazobact 2.25gm 2.25 GM/100 ML BAG IV SCH (06:13)
[2017-01-17 06:15] VITALS: PULSE 91
--- NOTE | 2017-01-17 08:13 | CP.PCM.PN ---
<Feliciano Grayson - Last Filed: 01/17/17 08:08> Subjective - Date & Time of Evaluation Date of Evaluation: 01/17/17 Time of Evaluation: 08:08 - Subjective Subjective: Surgery Pt s&e. PAULO. Denies F/C?N/V/D/CP/SOB. PD working. underwent PD repair yesterday. TOlerated it well. TOlerating diet. + amb. Objective - Vital Signs/Intake and Output Vital Signs (last 24 hours): Temp Pulse Resp BP Pulse Ox 98.0 F 91 H 16 161/108 H 94 L 01/16/17 16:00 01/17/17 06:12 01/16/17 16:45 01/17/17 06:12 01/16/17 16:45 Intake and Output: 01/17/17 01/17/17 06:59 18:59 Intake Total 300 420 Balance 300 420 - Medications Medications: Current Medications Amlodipine Besylate (Norvasc) 10 mg PO DAILY [facility] [place] Last Admin: 01/16/17 10:09 Dose: 10 mg Calcitriol (Rocaltrol) 0.25 mcg PO DAILY [facility] Last Admin: 01/16/17 10:12 Dose: Not Given Clonidine HCl (Catapres) 0.1 mg PO BID PRN PRN Reason: Systolic Blood Pressure Last Admin: 01/17/17 06:12 Dose: 0.1 mg Home Med (Home Med) 2 unit PO TID [facility] [place] Last Admin: 01/16/17 18:00 Dose: 2 unit Piperacillin Sod/Tazobactam Sod (Zosyn 2.25 Gm In 0.9% 100 Ml) 2.25 gm in 100 mls @ 100 mls/hr IV Q8 JASSON PRN Reason: Protocol Stop: 01/25/17 14:01 Last Admin: 01/17/17 06:13 Dose: 100 mls/hr Ondansetron HCl (Zofran Inj) 4 mg IVP Q6H PRN PRN Reason: Nausea/Vomiting Last Admin: 01/15/17 22:52 Dose: 4 mg Pantoprazole Sodium (Protonix Ec Tab) 40 mg PO DAILY [facility] [place] Polyethylene Glycol (Miralax) 17 gm PO DAILY PRN PRN Reason: Constipation Last Admin: 01/15/17 11:10 Dose: 17 gm Prednisone (Prednisone Tab) 5 mg PO DAILY [facility] [place] Last Admin: 01/16/17 16:22 Dose: Not Given Sennosides (Senokot Tab) 17.2 mg PO HS [facility] [place] Last Admin: 01/16/17 22:57 Dose: 17.2 mg Tacrolimus (Prograf Cap) 0.5 mg PO Q12 [facility] Last Admin: 01/16/17 22:57 Dose: 0.5 mg Tacrolimus (Prograf Cap) 1 mg PO Q12 [facility] Last Admin: 01/16/17 22:57 Dose: 1 mg Valsartan (Diovan) 320 mg PO DAILY [facility] [place] Last Admin: 01/16/17 10:09 Dose: 320 mg - Labs Labs: 01/16/17 05:30 01/16/17 05:30 PT 14.0 SECONDS (9.4-12.5) H 01/14/17 16:00 INR 1.28 (0.93-1.08) H 01/14/17 16:00 APTT 33.4 Seconds (25.1-36.5) 01/14/17 16:00 - Constitutional Appears: No Acute Distress - Head Exam Head Exam: ATRAUMATIC, NORMAL INSPECTION, NORMOCEPHALIC - Eye Exam Eye Exam: EOMI, Normal appearance, PERRL Pupil Exam: NORMAL ACCOMODATION, PERRL - ENT Exam ENT Exam: Mucous Membranes Moist, Normal Exam - Neck Exam Neck Exam: Full ROM, Normal Inspection. absent: Lymphadenopathy - Respiratory Exam Respiratory Exam: Clear to Ausculation Bilateral, NORMAL BREATHING PATTERN - Cardiovascular Exam Cardiovascular Exam: REGULAR RHYTHM, +S1, +S2. absent: Murmur - GI/Abdominal Exam GI & Abdominal Exam: Soft, Normal Bowel Sounds. absent: Distended, Firm, Guarding, Rigid, Tenderness Additional comments: PD catheter in place. Incision C/D/I - Extremities Exam Extremities Exam: Full ROM, Normal Capillary Refill, Normal Inspection. absent : Joint Swelling, Pedal Edema - Back Exam Back Exam: NORMAL INSPECTION - Neurological Exam Neurological Exam: Alert, Awake, CN II-XII Intact, Normal Gait, Oriented x3 - Psychiatric Exam Psychiatric exam: Normal Affect, Normal Mood - Skin Skin Exam: Dry, Intact, Normal Color, Warm Assessment and Plan - Assessment and Plan (Free Text) Assessment: POD 1 s/p laparoscopic PD catheter repair Plan: Clear for DC for surgical standpoint. Please return to office for any PD dysfunction in the future Follow up at Dr. Alejo office in 1-2 weeks. OK to take shower Keep glue on No heavy lifting for [address] Alejo <Ashok Alejo - Last Filed: 01/19/17 00:36> Objective - Vital Signs/Intake and Output Vital Signs (last 24 hours): Temp Pulse Resp BP Pulse Ox 98.3 F 91 H 20 158/108 H 95 01/17/17 06:00 01/17/17 06:12 01/17/17 06:00 01/17/17 10:10 01/17/17 06:00 - Labs Labs: 01/16/17 05:30 01/16/17 05:30 PT 14.0 SECONDS (9.4-12.5) H 01/14/17 16:00 INR 1.28 (0.93-1.08) H 01/14/17 16:00 APTT 33.4 Seconds (25.1-36.5) 01/14/17 16:00 Assessment and Plan - Assessment and Plan (Free Text) Plan: Patient was seen and examined by me. I agree with assessment and plan as per resident's note.
[2017-01-17] MEDS ORDERED: Pantoprazole 40 mg EC Tab PO SCH (10:00)
[2017-01-17 10:01] VITALS: RESP 20; TEMP 98.3; O2SAT 95
[2017-01-17] MEDS: AURYXIA 210 MG PO SCH ×2 (10:11→10:19)
[2017-01-17 10:13] VITALS: BP 158/108
--- NOTE | 2017-01-17 22:39 | DS ---
HOSPITAL COURSE: The patient is a 51-year-old male admitted to the Emergency Department on 01/14/2017 for anemia found on outpatient lab and he was referred to the Emergency Room by his Per Diem Physical Therapist Assistant. He received 2 units of packed red blood cells. He was seen in consultation by GI Dr. Perales, who performed an EGD without complications. He also underwent repositioning of his peritoneal dialysis catheter by Dr. Alejo without complications and was discharged to home in stable condition on 01/17/2017. PHYSICAL EXAMINATION: VITAL SIGNS: Blood pressure 161/108, pulse 91, temperature 98.3, respiratory rate 20. LUNGS: Clear. HEART: Regular rate and rhythm. ABDOMEN: Soft and nontender. Bowel sounds are normoactive. EXTREMITIES: Without cyanosis, clubbing, or edema. Peritoneal dialysis catheter is intact. NEUROLOGIC: The patient is awake and oriented x3 without focal, sensory, and motor deficits. SKIN: Warm and dry. IMPRESSION: 1. Anemia status post transfusion 2 units packed cells probably secondary to chronic renal disease. 2. End-stage kidney disease on peritoneal dialysis secondary to IgA nephropathy status post renal transplant with rejection. 3. Hypertension. 4. Status post admissions for peritonitis. PLAN: The patient will be discharged to home in stable condition on following medications, prednisone 5 mg daily, clonidine 0.1 mg twice daily, Prograf 1.5 mg twice daily, Prozac 20 mg daily and Xanax 0.5 mg b.i.d. He will be maintained on renal diet. Activities ad libitum. He will be followed up as an outpatient in the next 1 to 2 weeks in my office. He will be seen as an outpatient by his automation technologist Dr. Forbes. THELMA Rosas MD
--- NOTE | 2017-01-19 05:14 | OP ---
PROCEDURE DATE: 01/16/2017 PREOPERATIVE DIAGNOSIS: Malfunctioning of peritoneal dialysis catheter. POSTOPERATIVE DIAGNOSES: 1. Malfunctioning of peritoneal dialysis catheter. 2. Intraabdominal inflammatory exudate and adhesions. PROCEDURE PERFORMED: Diagnostic laparoscopy and peritoneal dialysis catheter revision. SURGEON: Ashok Alejo MD PICTURE ENLARGER: Dr. Pulliam and Dr. Jolley. ANESTHESIOLOGIST: Dr. Mahan. TYPE OF ANESTHESIA: General endotracheal anesthesia. ESTIMATED BLOOD LOSS: Minimal. SPECIMEN: Inflammatory exudate from abdominal cavity. INDICATIONS: The patient is a 51-year-old male with history of end-stage renal disease, currently on peritoneal dialysis on hold. The patient is complaining of inability to empty the catheter, but his abdominal cavity fully after infusion of the dialysate. The patient was brought to the operating room for exploration. DESCRIPTION OF PROCEDURE: The patient was brought to the operating room, placed on the operating table in a supine position. The patient was connected to EKG, blood pressure and pulse oximetry monitors. The patient then underwent general endotracheal anesthesia and was prepped and draped in the usual sterile fashion. First, a standard timeout procedure took place and everybody in the room agreed as to the patient's identity, diagnosis, and procedure to be performed. Now using, 5-mm Visiport, access to the abdominal cavity was obtained under direct visualization through the Visiport. Once the tip of the catheter was in abdominal cavity, we then proceeded with insufflation and once insufflated, a camera was placed through the port and to the abdominal cavity that revealed the presence of some adhesion, small bowel to the anterior abdominal wall and omentum to the anterior abdominal wall mostly in the upper abdomen. The lower abdomen appeared to have multiple lobes of small bowel as well as sigmoid colon and cecum, which appear to have mesh like stringy inflammatory changes probably resulted from previous infection spread out throughout that area. I then proceeded with placing the second 5-mm trocar through the left lower quadrant and procedure was clear for the cleaning of that area in order to facilitate the patency of the catheter. Once all this was done, I then had to pull the catheter through the 5-mm port in the left lower quadrant and procedure was cleaning of the catheter completely from all the fibrous tissue. This was all completed and flash forward with good results. Then, the catheter was returned to the abdominal cavity. Abdominal cavity was copiously irrigated. All the irrigant fluid was suctioned out after all the fibrous tissue was removed. The catheter itself was then positioned mostly towards the left lower quadrant. Once this was in place, we then proceeded with the evaluation of the port sites, which were not bleeding and removal of the ports and release of pneumoperitoneum. The wounds were closed in layers using 3-0 Vicryl for the subcutaneous layer and 4-0 Monocryl for the skin. A sterile Dermabond dressing was applied to the wound. The patient tolerated the procedure well and there were no complications. The patient was awakened and transferred to the recovery room for further observation. Ashok Alejo MD
== END 2017-01-17 12:30 | disposition home or self-care (01) | DRG 811 ==
LOC: ED 15:07 → ERH 17:23 → OBSVTOIN 18:43 → 3RNO 20:11
PROVIDERS: ADMIT Internal Medicine; ATTEND Internal Medicine
PROC: 30233N1 Transfusion of Nonautologous Red Blood Cells into Peripheral Vein, Percutaneous Approach (ICD-10-PCS; 2017-01-14)
PROC: 0DB68ZX Excision of Stomach, Via Natural or Artificial Opening Endoscopic, Diagnostic (ICD-10-PCS; 2017-01-16)
PROC: 3E1M39Z Irrigation of Peritoneal Cavity using Dialysate, Percutaneous Approach (ICD-10-PCS; principal; 2017-01-16 08:00)
DX: D64.9 Anemia, unspecified (principal); J18.9 Pneumonia, unspecified organism; K65.9 Peritonitis, unspecified; N17.9 Acute kidney failure, unspecified; I12.0 Hypertensive chronic kidney disease with stage 5 chronic kidney disease or end stage renal disease; N18.6 End stage renal disease; E83.51 Hypocalcemia; E87.70 Fluid overload, unspecified; K26.9 Duodenal ulcer, unspecified as acute or chronic, without hemorrhage or perforation; N02.8 Recurrent and persistent hematuria with other morphologic changes; N25.81 Secondary hyperparathyroidism of renal origin; Z94.0 Kidney transplant status; T85.611A Breakdown (mechanical) of intraperitoneal dialysis catheter, initial encounter; E87.6 Hypokalemia; E88.09 Other disorders of plasma-protein metabolism, not elsewhere classified; F32.89 Other specified depressive episodes; F41.9 Anxiety disorder, unspecified; J45.909 Unspecified asthma, uncomplicated; K59.00 Constipation, unspecified; M89.9 Disorder of bone, unspecified; Z79.899 Other long term (current) drug therapy; Z91.041 Radiographic dye allergy status; Z99.2 Dependence on renal dialysis; K66.0 Peritoneal adhesions (postprocedural) (postinfection); Z88.8 Allergy status to other drugs, medicaments and biological substances; Z91.013 Allergy to seafood; Z87.892 Personal history of anaphylaxis; R40.2412 Glasgow coma scale score 13-15, at arrival to emergency department; K44.9 Diaphragmatic hernia without obstruction or gangrene; K29.50 Unspecified chronic gastritis without bleeding; K29.80 Duodenitis without bleeding; K57.30 Diverticulosis of large intestine without perforation or abscess without bleeding; K64.8 Other hemorrhoids

== ENCOUNTER 2017-02-12 07:31 | Day surgery (SDC) | payer MEDICARE ==
[2017-01-30 09:39] VITALS: BMI 25.4
[2017-02-12 08:10] LABS: BASO # 0.01 K/mm3 (0.0-2.0); BASO % 0.3 % (0.0-3.0); EOS # 0.3 (0.0-0.7); EOS % 6.3 % (1.5-5.0); GRAN # 2.75 (1.4-6.5); GRAN % 69.6 % (50.0-68.0); LYMPH # 0.6 (1.2-3.4); LYMPH % 15.2 % (22.0-35.0); MEAN CELL VOLUME 92.7 fl (80.0-105.0); MEAN CORPUSCULAR HEMOGLOBIN 30.2 pg (25.0-35.0); MEAN CORPUSCULAR HGB CONC 32.6 g/dl (31.0-37.0); MEAN PLATELET VOLUME 9.1 fl (7.0-11.0); MONO # 0.3 (0.1-0.6); MONO % 8.6 % (1.0-6.0); RBC 2.48 10^6/uL (3.5-6.1); RED CELL DISTRIBUTION WIDTH 14.1 % (11.5-14.5)
[2017-02-12 08:13] LABS: HEMOGLOBIN 7.5 g/dL (14.0-18.0)
[2017-02-12 08:22] LABS: INR 1.09 (0.93-1.08); PARTIAL THROMBOPLASTIN TIME 32.3 Seconds (25.1-36.5); PROTHROMBIN TIME 12.5 SECONDS (9.4-12.5)
[2017-02-12 08:26] LABS: CALCIUM 7.6 mg/dL (8.4-10.5)
[2017-02-12] MEDS ORDERED: Bupivacaine 0.5% Inj(30mL) ONE (08:55)
[2017-02-12] MEDS ORDERED: Lidocaine 1% Inj (20ml) ONE (08:55)
[2017-02-12] MEDS ORDERED: Propofol 10 mg/ml Inj (20 ML) ONE (10:12)
[2017-02-12] MEDS ORDERED: Rocuronium 10 mg/ml (5 ml) ONE (10:13)
[2017-02-12] MEDS ORDERED: Midazolam 2 MG/2 ML VIAL ONE (10:13)
[2017-02-12] MEDS ORDERED: Sevoflurane - Inhalation Anesthetic Liq (250 ml) ONE (10:28)
[2017-02-12] MEDS ORDERED: Morphine 2 mg/ml ISec IVP PRN (12:23)
--- NOTE | 2017-02-12 13:28 | PCM.SURG1 ---
Surgeon's Initial Post Op Note - Surgeon's Notes Surgeon: Dr. Alejo Mold Unloader: Dr. Lopez, PGY-3 Type of Anesthesia: General Endo Anesthesia Administered By: Dr. Nelson Pre-Operative Diagnosis: End Stage Renal Disease Operative Findings: See operative report Post-Operative Diagnosis: Same Operation Performed: 1) Intra-op US guided vein mapping. 2) L arm Cephalic Vein to Brachial Artery Transposition Fistula Specimen/Specimens Removed: none Estimated Blood Loss: EBL {In ML}: 25 Blood Products Given: N/A Drains Used: No Drains Post-Op Condition: Good Date of Surgery/Procedure: 02/12/17 Time of Surgery/Procedure: 13:27
[2017-02-12 14:25] VITALS: RESP 18; TEMP 98.4
[2017-02-12 14:42] VITALS: BP 143/77; PULSE 74; O2SAT 98
--- NOTE | 2017-02-12 22:37 | OP ---
PROCEDURE DATE: 02/12/2017 PREOPERATIVE DIAGNOSES: Endstage renal disease, renal failure, hypertension and anemia. POSTOPERATIVE DIAGNOSES: Endstage renal disease, renal failure, hypertension and anemia. PROCEDURE PERFORMED: 1. Venous mapping of the left arm veins in preparation for arteriovenous fistula creation. 2. Cephalic vein transposition arteriovenous fistula creation in the left forearm. SURGEON: Ashok Alejo MD PROMOTIONS ASSISTANT: Dr. Lopez. TYPE OF ANESTHESIA: General endotracheal anesthesia. ANESTHESIA ADMINISTERED BY: Dr. Nelson. ESTIMATED BLOOD LOSS: Minimal. SPECIMEN: None. INDICATIONS: The patient is a 51-year-old male with history of endstage renal disease, who was on peritoneal dialysis, subsequently developed infection of the catheter, and revision of the catheter allowed it to be working; however, it was not efficient enough for dialysis. The patient subsequently was started on hemodialysis via the tunneled catheter and now needs a permanent dialysis access, and came in for the creation of the AV fistula. DESCRIPTION OF PROCEDURE: The patient was brought to the operating room, placed on the operating table in supine position. The patient was connected to EKG, blood pressure and pulse oximetry monitors. The patient then underwent general endotracheal anesthesia and was prepped and draped in the usual sterile fashion. First, using venous Doppler, careful evaluation of cephalic vein was done, which appeared to be about 4 mm in diameter all the way down to the wrist. However, the radial artery appeared to be calcified, small and there was no palpable pulse. Therefore decision was made to proceed with mobilization of the cephalic vein and transposition of it all the way up towards the brachial artery and creation of the AV fistula between the two. Once the area of the incisions were infiltrated with lidocaine and after the vein was marked and its branches were also marked after venous Doppler, I then proceeded to making several small incisions in order to mobilize the vein long-term through its course, and then turned it back and tunneled down to the skin towards brachial artery. End-to-side anastomosis was created between the cephalic vein and brachial artery, and forward flow was established within the vein. There was good thrill palpable through the first portion of the fistula down towards return at the bend. The wounds were then copiously irrigated and dried, and the wounds were closed in layers in 3-0 Vicryl for deep dermal layer and 4-0 Monocryl for skin. A sterile Dermabond dressing was applied in the wound. The patient tolerated the procedure well, and there was no complications. The patient was awakened, and extubated, and transferred to the recovery room for further observation. Ashok Alejo MD
== END 2017-02-12 15:50 | disposition home or self-care (01) ==
LOC: SDS 07:31
PROVIDERS: ATTEND General Practice
DX: I12.0 Hypertensive chronic kidney disease with stage 5 chronic kidney disease or end stage renal disease (principal); N18.6 End stage renal disease; D64.9 Anemia, unspecified; Z99.2 Dependence on renal dialysis; N02.8 Recurrent and persistent hematuria with other morphologic changes
CPT/HCPCS: 36415; 36818; 80048; 85025; 85610; 85730; 86850; 86900; 86920; G0365; J0690; J1644 ×2; J2001; J2250; J2270; J2704; J3010

== ENCOUNTER 2017-03-03 15:32 | Inpatient (IN) | payer MEDICARE, OTHER ==
[2017-03-03 15:32] VITALS: BMI 25.4
[2017-03-03] MEDS ORDERED: Morphine 2 mg/ml ISec IVP STA ×3 (16:43→22:18)
[2017-03-03 17:18] LABS: BASO # 0.01 K/mm3 (0.0-2.0); BASO % 0.1 % (0.0-3.0); EOS # 0.1 (0.0-0.7); EOS % 0.8 % (1.5-5.0); GRAN # 10.77 (1.4-6.5); GRAN % 91.4 % (50.0-68.0); HEMOGLOBIN 8.6 g/dL (14.0-18.0); LYMPH # 0.4 (1.2-3.4); LYMPH % 3.1 % (22.0-35.0); MEAN CELL VOLUME 89.2 fl (80.0-105.0); MEAN CORPUSCULAR HEMOGLOBIN 30.1 pg (25.0-35.0); MEAN CORPUSCULAR HGB CONC 33.7 g/dl (31.0-37.0); MEAN PLATELET VOLUME 9.6 fl (7.0-11.0); MONO # 0.5 (0.1-0.6); MONO % 4.6 % (1.0-6.0); PLATELET COUNT 174 10^3/uL (120.0-450.0); RBC 2.86 10^6/uL (3.5-6.1); RED CELL DISTRIBUTION WIDTH 13.5 % (11.5-14.5); WHITE BLOOD COUNT 11.8 10^3/ul (4.5-11.0)
[2017-03-03 17:24] LABS: VENOUS BLOOD GAS PO2 43 mm/Hg (30-55)
[2017-03-03 17:28] LABS: INR 1.2 (0.93-1.08); PARTIAL THROMBOPLASTIN TIME 32.1 Seconds (25.1-36.5); PROTHROMBIN TIME 13.7 SECONDS (9.4-12.5)
[2017-03-03 17:45] LABS: LYMPHOCYTE 4 % (22.0-35.0); MONOCYTE 4 % (1.0-6.0); NEUTROPHIL 92 % (50.0-70.0)
[2017-03-03 17:57] LABS: ALB/GLOB RATIO 0.9 (1.1-1.8); CALCIUM 6.9 mg/dL (8.4-10.5); MAGNESIUM 1.4 mg/dL (1.7-2.2)
[2017-03-03] MEDS ORDERED: cefTRIAXone 1 gm 1 GM/100 ML BAG IVPB STA (18:10)
--- NOTE | 2017-03-03 18:20 | CT ---
PROCEDURE: CT Abdomen and Pelvis without intravenous contrast HISTORY: abdominal pain, bowel obstruction COMPARISON: None. TECHNIQUE: Unenhanced study. Neither oral nor intravenous contrast administered. Radiation dose: Total exam DLP = 613.96 mGy-cm. This CT exam was performed using one or more of the following dose reduction techniques: Automated exposure control, adjustment of the mA and/or kV according to patient size, and/or use of iterative reconstruction technique. FINDINGS: LOWER THORAX: Stable right pleural effusion, resolved left pleural effusion. LIVER: Unremarkable. No gross lesion or ductal dilatation. GALLBLADDER AND BILE DUCTS: Distended gallbladder without evidence of calculus disease. PANCREAS: Unremarkable. No gross lesion or ductal dilatation. SPLEEN: Unremarkable. ADRENALS: Unremarkable. No mass. KIDNEYS AND URETERS: Atrophied [place] kidneys represents a stable finding. The dystrophic calcifications within the transplanted kidney in the right lower quadrant, right hemipelvis. This too is unchanged in overall size and configuration. VASCULATURE: Unremarkable. No aortic aneurysm. BOWEL: Unremarkable. No obstruction. No gross mural thickening. APPENDIX: Unremarkable. Normal appendix. PERITONEUM: Peritoneal dialysis catheter again identified as is trace fluid in the abdomen and pelvis. Trace foci of air again identified in the abdomen unexpected, likely finding related to peritoneal dialysis. LYMPH NODES: Unremarkable. No enlarged lymph nodes. BLADDER: Collapsed urinary bladder. REPRODUCTIVE: Unremarkable. BONES: No acute fracture. OTHER FINDINGS: None. IMPRESSION: No evidence of mechanical bowel obstruction. Persistent right pleural effusion, resolved left pleural effusion. Multiple benign and incidental findings described in greater detail above.
--- NOTE | 2017-03-03 18:34 | RAD ---
PROCEDURE: CHEST RADIOGRAPH, 1 VIEW HISTORY: abdominal pain COMPARISON: None available. FINDINGS: LUNGS: Persistent right lower lobe infiltrate. PLEURA: Stable left pleural effusion. CARDIOVASCULAR: No radiographic findings to suggest acute or significant cardiovascular disease. Removal of support apparatus since the prior study: Dialysis catheter OSSEOUS STRUCTURES: No significant abnormalities. VISUALIZED UPPER ABDOMEN: Normal. OTHER FINDINGS: None. IMPRESSION: Persistent/stable right lower lobe infiltrate, right pleural effusion.
--- NOTE | 2017-03-03 18:35 | ED PDOC ---
Arrival/HPI - General Chief Complaint: Abdominal Pain Time Seen by Provider: 03/03/17 16:31 Historian: Patient - History of Present Illness Narrative History of Present Illness (Text): 03/03/17 22:43 Patient is a 51 yo male hx of ESRD on peritoneal dialysis states that he has had abdominal pain for 1-2 days, generalized, briefly yesterday than resolved, than 3 hours prior to arrival states he has severe diffuse abdominal pain with distension. He states he last moved his bowels yesterday but has passed gas. Reports nausea. Denies diarrhea. Denies bloody stool. States his dialysis fluid has been clear, not cloudy. Denies chest pain or shortness of breath. Reports pass history of bowel obstruction, states symptoms different from this. States past history of peritonitis as well, but also states fluid has not been cloudy. Past Medical History - Past History Past History: No Previous - Infectious Disease Hx of Infectious Diseases: None - Tetanus Immunization Tetanus Immunization: Unknown - Past Medical History Past Medical History: Non-Contributing - Cardiac Hx Pacemaker: No - Pulmonary Hx Respiratory Disorders: Yes Hx Bronchitis: Yes - Neurological Hx Paralysis: No - HEENT Hx HEENT Disorder: Yes (WEARS RX GLASSES) - Renal Hx Renal Disorder: Yes Hx Dialysis: Yes (daily) Hx Renal Failure: Yes Other/Comment: llq abd peritoneal dialysis inserted 06/10/16. 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, pt performs peritoneal dialysis at home - Endocrine/Metabolic Hx Endocrine Disorders: No - Hematological/Oncological Hx Blood Transfusions: Yes (01/2017) Hx Blood Transfusion Reaction: No - Integumentary Hx Dermatological Disorder: No - Musculoskeletal/Rheumatological Hx Musculoskeletal Disorders: No - Gastrointestinal Hx Gastrointestinal Disorders: No Hx Gall Bladder Disease: Yes (stones) - Genitourinary/Gynecological Hx Genitourinary Disorders: Yes Other/Comment: ANURIC - Psychiatric Hx Emotional Abuse: No Hx Physical Abuse: No Hx Substance Use: No - Surgical History Hx Kidney Transplant: Yes Other/Comment: PD placement in the LLQ and dialysis port to chest removed. R kidney transplant - Anesthesia Hx Anesthesia Reactions: No Hx Malignant Hyperthermia: No - Suicidal Assessment Feels Threatened In Home Enviroment: No Family/Social History Family/Social History: Unknown Family HX Smoking Status: Never Smoked Hx Alcohol Use: No Hx Substance Use: No Allergies/Home Meds Allergies/Adverse Reactions: Allergies Iodine and Iodide Containing Produc Allergy (Verified 03/03/17 15:55) ANAPHYLAXIS lactose Allergy (Verified 03/03/17 15:55) DIARRHEA shellfish derived Allergy (Verified 03/03/17 15:55) ANAPHYLAXIS Home Medications: Home Meds Medication Instructions Recorded Confirmed Unobtainable 03/03/17 03/03/17 Review of Systems - Review of Systems Constitutional: Fatigue. absent: Fevers Eyes: absent: Vision Changes ENT: absent: Hearing Changes Respiratory: absent: SOB Cardiovascular: absent: Chest Pain Gastrointestinal: Abdominal Pain, Stool Changes, Nausea, Appetite Changes. absent: Constipation, Diarrhea, Hematochezia, Hematemesis, Food Intolerance Genitourinary Male: absent: Frequency Musculoskeletal: absent: Back Pain, Neck Pain Skin: absent: Rash Neurological: absent: Headache, Dizziness, Focal Weakness Endocrine: absent: Polyuria Hemo/Lymphatic: absent: Easy Bleeding Physical Exam Vital Signs Reviewed: Yes Vital Signs Temp Pulse Resp BP Pulse Ox 03/03/17 16:00 98.0 F 95 H 18 140/91 H 98 Temperature: Afebrile Appearance: Positive for: Uncomfortable Pain Distress: Moderate Mental Status: Positive for: Alert and Oriented X 3 - Systems Exam Head: Present: Atraumatic Extroacular Muscles: Present: EOMI Mouth: Present: Dry Pharnyx: No: ERYTHEMA Nose (Internal): Present: Normal Inspection, No Active Bleeding Neck: Present: Normal Range of Motion. No: Meningeal Signs, MIDLINE TENDERNESS Respiratory/Chest: Present: Clear to Auscultation. No: Respiratory Distress Cardiovascular: Present: Regular Rate and Rhythm, Murmurs Abdomen: Present: Tenderness, Distention, Other (tube site with no erythema or edema, no incarcerated hernia, no pulsatile masses). No: Peritoneal Signs, Rebound, Guarding, Hernias Rectal: No: Gross Blood Back: No: CVA Tenderness Upper Extremity: No: Cyanosis Lower Extremity: No: Edema Neurological: Present: Motor Func Grossly Intact, Normal Sensory Function Skin: Present: Pale Psychiatric: Present: Alert, Normal Insight, Normal Concentration Medical Decision Making ED Course and Treatment: Patient evaluated on stretcher noted to be distended with diffuse pain. Afebrile. Reports initially no nausea but severe pain. Pain not colicky. Pain diffuse. He reports bowel movement, normal, yesterday. As patient with severe diffuse pain, surgery consulted and ct ordered. IV morphine ordered. Report Date : 03/03/2017 18:18:56 PROCEDURE: CT Abdomen and Pelvis without intravenous contrast Dictator : Emil Sanchez MD IMPRESSION: No evidence of mechanical bowel obstruction. Persistent right pleural effusion, resolved left pleural effusion. Multiple benign and incidental findings described in greater detail above. Report Date : 03/03/2017 18:32:51 PROCEDURE: CHEST RADIOGRAPH, 1 VIEW Dictator : Emil Sanchez MD IMPRESSION: Persistent/stable right lower lobe infiltrate, right pleural effusion. Patient denies cough, fever, or respiratory symptoms. On re-exam, pain improved but then returned. Still diffuse pain. NO obstruction noted. Give persistence of pain, cannot exclude SBP. Have cultured his fluid, initiated iv antibiotics. Patient nausea, iv zofran given. Cr elevated. Hypocalcemic and anemic, but no active bleeding and at his baseline. He states he typically does not get symptomatic when his calcium is at this level. Given persistent pain, case d/w PMD Dr. Afshin Rivers. Will admit for serial exams, I have also reviewed case with his neprhologist Dr. Forbes, who is aware of his admission and need for evaluation of his peritoneal dialysis. Patient updated with treatment plan. Care turned over to admitting physician. - Lab Interpretations Lab Results: 03/03/17 16:00 03/03/17 16:00 Lab Results 03/03/17 16:00: Sodium 134, Chloride 93 L, Potassium 3.7, Carbon Dioxide 29, Anion Gap 16, BUN 35 H, Creatinine 13.3 H* D, Est GFR ( Amer) 5, Est GFR (Non-Af Amer) 4, Random Glucose 107, Calcium 6.9 L*, Magnesium 1.4 L, Total Bilirubin 0.6, AST 21, ALT 18, Alkaline Phosphatase 67, Total Protein 6.6, Albumin 3.0, Globulin 3.6, Albumin/Globulin Ratio 0.9 L 03/03/17 16:00: PT 13.7 H, INR 1.20 H, APTT 32.1 03/03/17 16:00: WBC 11.8 H D, RBC 2.86 L, Hgb 8.6 L, Hct 25.5 L, MCV 89.2 D, MCH 30.1, MCHC 33.7, RDW 13.5, Plt Count 174, MPV 9.6, Gran % 91.4 H, Lymph % ( Auto) 3.1 L, [place] % (Auto) 4.6, Eos % (Auto) 0.8 L, Baso % (Auto) 0.1, Gran # 10.77 H, Lymph # 0.4 L, [place] # 0.5, Eos # 0.1, Baso # 0.01, Neutrophils % ( Manual) 92 H, Lymphocytes % (Manual) 4 L, Monocytes % (Manual) 4 03/03/17 16:00: pO2 43, VBG pH 7.40, VBG pCO2 52.0, VBG HCO3 32.2 H, VBG Total CO2 33.8 H, VBG O2 Sat (Calc) 81.1 H, VBG Base Excess 6.0 H, VBG Potassium 3.7, Sodium 133.0, Chloride 98.0, Glucose 110, Lactate 0.7, FiO2 21.0, Venous Blood Potassium 3.7 - RAD Interpretation Radiology Orders: 03/03/17 16:39 ABD & PELVIS W/O PO OR IV CONT [CT] Stat 03/03/17 16:40 CHEST ONE VIEW [RAD] Stat - EKG Interpretation EKG Interpretation (Text): 03/03/17 22:42 EKG at 17:39 normal sinus rhythm rate of [address] elevations Interpreted by ED Physician: Yes Type: 12 lead EKG - Medication Orders Current Medication Orders: Acetaminophen (Tylenol 325mg Tab) 650 mg PO Q6H PRN PRN Reason: Fever >100.4 F Alprazolam (Xanax) 0.5 mg PO BID PRN; Protocol PRN Reason: Anxiety Clonidine HCl (Catapres) 0.1 mg PO BID JASSON Fluoxetine HCl (Prozac) 20 mg PO DAILY JASSON Morphine Sulfate (Morphine) 2 mg IVP Q6H PRN PRN Reason: Pain, moderate (4-7) Prednisone (Prednisone Tab) 5 mg PO DAILY JASSON Tacrolimus (Prograf Cap) 1.5 mg PO Q12 JASSON Discontinued Medications Ceftriaxone Sodium (Rocephin 1 Gram Ivpb) 1 gm in 100 mls @ 200 mls/hr IVPB ONCE STA PRN Reason: Protocol Stop: 03/03/17 18:39 Last Admin: 03/03/17 18:33 Dose: 200 mls/hr eMAR Start Stop Document 03/03/17 18:33 LA (Rec: 03/03/17 18:33 [id number] Intravenous Solution Start Date 03/03/17 Start Time 18:33 Morphine Sulfate (Morphine) 2 mg IVP STAT STA Stop: 03/03/17 16:44 Last Admin: 03/03/17 17:03 Dose: 2 mg MAR Pain Assessment Document 03/03/17 17:03 LA (Rec: 03/03/17 17:04 [id number] Pain Reassessment Is this a pain reassessment? No Sleep Is patient sleeping during reassessment? No Presence of Pain Presence of Pain Yes Pain Scale Used Pain Scale Used Numeric Location Pain Location Body Site Abdomen Description Description Constant Intensity of Pain at present 10 Pain Behavior Guarding IVP Administration Document 03/03/17 17:03 LA (Rec: 03/03/17 17:04 LA [id number]) Charges for Administration # of IVP Administrations 1 Morphine Sulfate (Morphine) 2 mg IVP STAT STA Stop: 03/03/17 18:10 Last Admin: 03/03/17 18:23 Dose: 2 mg MAR Pain Assessment Document 03/03/17 18:23 LA (Rec: 03/03/17 18:23 [id number] Pain Reassessment Is this a pain reassessment? Yes Sleep Is patient sleeping during reassessment? No Presence of Pain Presence of Pain Yes Location Pain Location Body Site Abdomen Description Description Cramping Pain Behavior Moaning Guarding IVP Administration Document 03/03/17 18:23 LA (Rec: 03/03/17 18:23 [id number] Charges for Administration # of IVP Administrations 1 Morphine Sulfate (Morphine) 2 mg IVP STAT STA Stop: 03/03/17 22:19 Ondansetron HCl (Zofran Inj) 4 mg IVP ONCE ONE Stop: 03/03/17 18:10 Last Admin: 03/03/17 18:10 Dose: 4 mg IVP Administration Document 03/03/17 18:10 LA (Rec: 03/03/17 18:10 [id number] Charges for Administration # of IVP Administrations 1 Ondansetron HCl (Zofran Inj) 4 mg IVP ONCE ONE Stop: 03/03/17 19:58 Last Admin: 03/03/17 20:02 Dose: 4 mg IVP Administration Document 03/03/17 20:02 SS (Rec: 03/03/17 20:02 SS [id number]) Charges for Administration # of IVP Administrations 1 Disposition/Present on Arrival - Present on Arrival Any Indicators Present on Arrival: No History of DVT/PE: No History of Uncontrolled Diabetes: No Urinary Catheter: No History of Decub. Ulcer: No History Surgical Site Infection Following: None - Disposition Have Diagnosis and Disposition been Completed?: Yes Diagnosis: Renal failure, Anemia, Abdominal pain, Nausea and vomiting, Hypocalcemia Disposition: HOSPITALIZED Disposition Time: 19:35 Patient Plan: Admission Condition: FAIR
[2017-03-03] MEDS ORDERED: Morphine 5 MG/ML SYRINGE IVP PRN (22:25)
--- NOTE | 2017-03-03 22:49 | CP.PCM.CON ---
<Laura Russell - Last Filed: 03/04/17 10:23> History of Present Illness - History of Present Illness History of Present Illness: GENERAL SURGERY CONSULT NOTE FOR DR. ALEJO 51yo M with PMHx of IgA nephropathy, ESRD s/p renal transplant on peritoneal dialysis, SBO, chronic anemia, HTN, peritonitis presents to [facility] with abdominal pain. The pain is suprapubic between umbilicus and pubic bone. The patient states that he has been having on and off abdominal pain for 2-3 days. Around 6pm yesterday, he began having cramps. At 2:30 today, the pain worsened. He vomited once in the ED which he suspects was de to reflux. He is having regular bowel movements, last one yesterday. He is passing flatus. He did have some non-bloody diarrhea. Patient states that his symptoms may be due to a "stomach flu" as some people he lives with have the "stomach flu". Patient is not sure if food worsens or exacerbates his symptoms as he has not eaten anything today. He last did peritoneal dialysis around 2:00 today and the solution was clear per the patient. 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 Alejo in their offices this week. PMHx: ESRD secondary to IgA nephropathy, HTN, chronic anemia requiring transfusinos on Aranesp (darbepoetin alpha), hypocalcemia, mild depression and anxiety, peritonitis PSHx: Renal transplant in 2003 (rejected in 2007), PD catheter placement 06/10/16 , PD catheter repositioning 01/26/17, Right permacath in Jan 2017, left cephalic vein to brachial artery transposition fistula 02/12/17 ALL: Iodine SocialHx: Denies ETOH, tobacco, recreational drug use Review of Systems - Review of Systems All systems: reviewed and no additional remarkable complaints except (as per HPI ) Past Patient History - Infectious Disease Hx of Infectious Diseases: None - Tetanus Immunizations Tetanus Immunization: Unknown - Past Social History Smoking Status: Never Smoked - CARDIAC Hx Pacemaker: No - PULMONARY Hx Respiratory Disorders: Yes Hx Bronchitis: Yes - NEUROLOGICAL Hx Paralysis: No - HEENT Hx HEENT Problems: Yes (WEARS RX GLASSES) - RENAL Hx Chronic Kidney Disease: Yes Hx Dialysis: Yes (daily) Hx Renal Failure: Yes Other/Comment: llq abd peritoneal dialysis inserted 06/10/16. 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, pt performs peritoneal dialysis at home - ENDOCRINE/METABOLIC Hx Endocrine Disorders: No - HEMATOLOGICAL/ONCOLOGICAL Hx Blood Transfusions: Yes (01/2017) Hx Blood Transfusion Reaction: No - INTEGUMENTARY Hx Dermatological Problems: No - MUSCULOSKELETAL/RHEUMATOLOGICAL Hx Musculoskeletal Disorders: No - GASTROINTESTINAL Hx Gastrointestinal Disorders: No Hx Gall Bladder Disease: Yes (stones) - GENITOURINARY/GYNECOLOGICAL Hx Genitourinary Disorders: Yes Other/Comment: ANURIC - PSYCHIATRIC Hx Emotional Abuse: No Hx Physical Abuse: No Hx Substance Use: No - SURGICAL HISTORY Hx Kidney Transplant: Yes (2003) Hx Vascular Access Device: Yes (Permacath) Other/Comment: PD placement in the LLQ and dialysis port to chest removed. R kidney transplant - ANESTHESIA Hx Anesthesia Reactions: No Hx Malignant Hyperthermia: No Meds Allergies/Adverse Reactions: Allergies Allergy/AdvReac Type Severity Reaction Status Date / Time Iodine and Iodide Containing Allergy ANAPHYLAXIS Verified 03/03/17 15:55 Produc lactose Allergy DIARRHEA Verified 03/03/17 15:55 shellfish derived Allergy ANAPHYLAXIS Verified 03/03/17 15:55 - Medications Medications: Current Medications Acetaminophen (Tylenol 325mg Tab) 650 mg PO Q6H PRN PRN Reason: Fever >100.4 F Alprazolam (Xanax) 0.5 mg PO BID PRN; Protocol PRN Reason: Anxiety Clonidine HCl (Catapres) 0.1 mg PO BID JASSON Fluoxetine HCl (Prozac) 20 mg PO DAILY [facility] Morphine Sulfate (Morphine) 2 mg IVP Q6H PRN PRN Reason: Pain, moderate (4-7) Prednisone (Prednisone Tab) 5 mg PO DAILY [facility] Tacrolimus (Prograf Cap) 1.5 mg PO Q12 JASSON Physical Exam - Constitutional Appears: Non-toxic, No Acute Distress, Chronically Ill - Head Exam Head Exam: ATRAUMATIC, NORMAL INSPECTION - Respiratory Exam Respiratory Exam: NORMAL BREATHING PATTERN. absent: Respiratory Distress - Cardiovascular Exam Cardiovascular Exam: +S1, +S2 Additional comments: Right permacath - GI/Abdominal Exam GI & Abdominal Exam: Distended (mild), Soft, Tenderness (tender in suprapubic area, mild tenderness in RLQ). absent: Firm, Guarding, Rebound, Rigid Additional comments: Peritoneal dialysis catheter in place - Neurological Exam Neurological exam: Alert, CN II-XII Intact, Oriented x3 - Psychiatric Exam Psychiatric exam: Normal Affect, Normal Mood - Skin Skin Exam: Dry, Normal Color, Warm Results - Vital Signs Recent Vital Signs: Last Vital Signs Temp 98.0 F 03/03/17 16:00 Pulse 95 H 03/03/17 16:00 Resp 18 03/03/17 16:00 BP 140/91 H 03/03/17 16:00 Pulse Ox 98 03/03/17 16:00 - Labs Result Diagrams: 03/03/17 16:00 03/03/17 16:00 Assessment & Plan - Assessment and Plan (Free Text) Assessment: 51yo M with PMHx of IgA nephropathy, ESRD s/p renal transplant on peritoneal dialysis, SBO, chronic anemia, HTN, peritonitis who presents with abdominal pain. - Afebrile, VSS - WBC 11.8 - Hgb 8.6 (around pt's baseline from previous visits) - Ca 6.9 (around pt's baseline from previous visits) - CT: no evidence of mechanical bowel obstruction - No acute surgical intervention necessary - Recommend GI consult - Discussed plan with Dr. Sapna Russell PGY-3 <Ashok Alejo - Last Filed: 03/04/17 20:14> Meds - Medications Medications: Current Medications Acetaminophen (Tylenol 325mg Tab) 650 mg PO Q6H PRN PRN Reason: Fever >100.4 F Alprazolam (Xanax) 0.5 mg PO BID PRN; Protocol PRN Reason: Anxiety Amlodipine Besylate (Norvasc) 10 mg PO DAILY [facility] Last Admin: 03/04/17 15:56 Dose: 10 mg Calcitriol (Rocaltrol) 1 mcg PO DAILY [facility] Last Admin: 03/04/17 15:55 Dose: 1 mcg Calcium Carbonate (Oscal) 500 mg PO BID [facility] Last Admin: 03/04/17 18:44 Dose: 500 mg Clonidine HCl (Catapres) 0.1 mg PO BID [facility] Last Admin: 03/04/17 18:44 Dose: 0.1 mg Doxycycline Hyclate (Doryx) 100 mg PO Q12 JASSON PRN Reason: Protocol Stop: 03/13/17 10:01 Last Admin: 03/04/17 10:31 Dose: Not Given Fluoxetine HCl (Prozac) 20 mg PO HS [facility] Meropenem 250 mg/ Sodium (Chloride) 100 mls @ 100 mls/hr IVPB Q12H JASSON PRN Reason: Protocol Stop: 03/13/17 00:31 Last Admin: 03/04/17 16:00 Dose: 100 mls/hr Morphine Sulfate (Morphine) 2 mg IVP Q6H PRN PRN Reason: Pain, moderate (4-7) Last Admin: 03/04/17 15:56 Dose: 2 mg Ondansetron HCl (Zofran Inj) 4 mg IVP Q4 PRN PRN Reason: Nausea/Vomiting Last Admin: 03/04/17 18:44 Dose: 4 mg Pantoprazole Sodium (Protonix Ec Tab) 20 mg PO 0600 [facility] Prednisone (Prednisone Tab) 5 mg PO DAILY [facility] Last Admin: 03/04/17 15:56 Dose: 5 mg Tacrolimus (Prograf Cap) 1.5 mg PO Q12 [facility] Last Admin: 03/04/17 10:32 Dose: Not Given Results - Vital Signs Recent Vital Signs: Last Vital Signs Temp 98.5 F 03/04/17 16:00 Pulse 105 H 03/04/17 18:44 Resp 20 03/04/17 16:00 BP 171/86 H 03/04/17 18:44 Pulse Ox 97 03/04/17 16:00 - Labs Result Diagrams: 03/04/17 12:30 03/04/17 10:00 Labs: Laboratory Results - last 24 hr 03/04/17 03/04/17 03/04/17 06:15 10:00 10:00 WBC 8.5 D RBC 2.39 L Hgb 7.1 L Hct 21.5 L MCV 90.0 MCH 29.7 MCHC 33.0 RDW 13.7 Plt Count 121 MPV 9.7 Gran % 84.7 H Lymph % (Auto) 6.9 L [place] % (Auto) 7.4 H Eos % (Auto) 0.9 L Baso % (Auto) 0.1 Gran # 7.20 H Lymph # 0.6 L [place] # 0.6 Eos # 0.1 Baso # 0.01 Sodium 134 Potassium 4.0 Chloride 93 L Carbon Dioxide 27 Anion Gap 18 BUN 42 H Creatinine 14.9 H* Est GFR ( Amer) 4 Est GFR (Non-Af Amer) 3 POC Glucose (mg/dL) Random Glucose 69 L Calcium 6.5 L* Total Bilirubin 0.7 AST 19 ALT 27 Alkaline Phosphatase 65 Total Protein 5.7 L Albumin 2.6 L Globulin 3.0 Albumin/Globulin Ratio 0.9 L Procalcitonin 17.05 H Blood Type Antibody Screen Crossmatch BBK History Checked 03/04/17 03/04/17 03/04/17 11:35 12:30 17:20 WBC 10.6 D RBC 2.14 L Hgb 6.6 L* Hct 19.1 L* MCV 89.3 MCH 30.8 MCHC 34.6 RDW 13.7 Plt Count 122 MPV 9.8 Gran % Lymph % (Auto) [place] % (Auto) Eos % (Auto) Baso % (Auto) Gran # Lymph # [place] # Eos # Baso # Sodium Potassium Chloride Carbon Dioxide Anion Gap BUN Creatinine Est GFR ( Amer) Est GFR (Non-Af Amer) POC Glucose (mg/dL) 109 Random Glucose Calcium Total Bilirubin AST ALT Alkaline Phosphatase Total Protein Albumin Globulin Albumin/Globulin Ratio Procalcitonin Blood Type A POSITIVE Antibody Screen Negative Crossmatch See Detail BBK History Checked Patient has bt Assessment & Plan - Assessment and Plan (Free Text) Assessment: Patient was seen, evaluated and examined by me. I agree with the assessment and plan as per the resident's note.
--- NOTE | 2017-03-03 23:36 | CARD ---
APPROVED REPORT EKG Measurement Heart [id number] <Conclusion> Normal sinus rhythm Normal ECG
[2017-03-04] MEDS ORDERED: Vancomycin 1gm in NS 250ml 1 GM/250 ML BAG IVPB STA (00:22)
[2017-03-04] MEDS: Morphine 2 mg/ml ISec IVP PRN ×3 (02:49→15:56)
[2017-03-04 11:09] LABS: BASO # 0.01 K/mm3 (0.0-2.0); BASO % 0.1 % (0.0-3.0); EOS # 0.1 (0.0-0.7); EOS % 0.9 % (1.5-5.0); GRAN # 7.2 (1.4-6.5); GRAN % 84.7 % (50.0-68.0); LYMPH # 0.6 (1.2-3.4); LYMPH % 6.9 % (22.0-35.0); MEAN CORPUSCULAR HEMOGLOBIN 29.7 pg (25.0-35.0); MEAN PLATELET VOLUME 9.7 fl (7.0-11.0); MONO # 0.6 (0.1-0.6); MONO % 7.4 % (1.0-6.0); RBC 2.39 10^6/uL (3.5-6.1); RED CELL DISTRIBUTION WIDTH 13.7 % (11.5-14.5); WHITE BLOOD COUNT 8.5 10^3/ul (4.5-11.0)
[2017-03-04 11:12] LABS: HEMOGLOBIN 7.1 g/dL (14.0-18.0)
[2017-03-04 11:41] LABS: ALB/GLOB RATIO 0.9 (1.1-1.8); ALBUMIN 2.6 g/dL (3.0-4.8); CALCIUM 6.5 mg/dL (8.4-10.5)
[2017-03-04 13:11] LABS: MEAN CELL VOLUME 89.3 fl (80.0-105.0); MEAN CORPUSCULAR HEMOGLOBIN 30.8 pg (25.0-35.0); MEAN CORPUSCULAR HGB CONC 34.6 g/dl (31.0-37.0); MEAN PLATELET VOLUME 9.8 fl (7.0-11.0); RBC 2.14 10^6/uL (3.5-6.1); RED CELL DISTRIBUTION WIDTH 13.7 % (11.5-14.5); WHITE BLOOD COUNT 10.6 10^3/ul (4.5-11.0)
[2017-03-04 13:13] LABS: HEMOGLOBIN 6.6 g/dL (14.0-18.0)
--- NOTE | 2017-03-04 15:54 | CP.PCM.CON ---
<Rayna Arreola - Last Filed: 03/04/17 17:27> History of Present Illness - History of Present Illness History of Present Illness: Seen and examined at the bedside earlier today, chart reviewed. Request for GI consult is for abdominal pain/vomiting. HPI: This is a 51-year-old male with a past medical history of IgA and nephropathy,end-stage renal disease status post renal transplanton peritoneal dialysis, history of SPO, chronic anemia, hypertension and peritonitis came to the emergency room with complaints of sudden onset of sharp abdominal pain. The patient states that he's been having the pain intermittently and yesterday the pain became severe and on tolerable rating it a 12-10. The patient reported vomiting once in the emergency room reporting that it appeared brown like [employer] color/coffee ground. The patient had also been having diarrhea denies any melena or bright red blood, patient states that people that he resides with has had the stomach flu. Last BM yesterday was "regular" no further episodes or dairrhea. Denies fever or chills. On admission he had a CT scan of abdomen and pelvis which was negative for obstruction he did show the peritoneal dialysis catheter, trace fluid in the abdomen and pelvis as well as trace foci of air which may be secondary to the peritoneal dialysis catheter. This patient was seen by our service back in January he had been seen for anemia and had a endoscopy on January 2017 which did show 2 nonbleeding superficial ulcers and chronic duodenitis. His last colonoscopy was June 2016 which showed a colon polyp which was tubular adenoma and diverticulosis. The patient has been on Protonix and denies any use of NSAIDs. He has also been taking iron pills for the past month. This patient was seen and dialysis department. Past medical history: End-stage renal disease secondary to IgA nephropathy, chronic anemia, hypocalcemia, hypertension, peptic ulcer disease, depression, anxiety and peritonitis Past surgical history: 2000 for renal transplant, rejected in 2007, 06/2016 peritoneal dialysis catheter placement, then on 01/2017 he had had no dialysis catheter repositioning, had bright, catheter inserted in January 2017, and left arm fistula on February/2017 Allergies: Iodine, lactose Family history: Noncontributory to this time Social history: Denies EtOH, tobacco use or recreational drugs Medications: Reviewed as per MAR ROS: Systems reviewed positive finding see HPI. Past Patient History - Infectious Disease Hx of Infectious Diseases: None - Tetanus Immunizations Tetanus Immunization: Unknown - Past Social History Smoking Status: Never Smoked - CARDIAC Hx Pacemaker: No - PULMONARY Hx Respiratory Disorders: Yes Hx Bronchitis: Yes - NEUROLOGICAL Hx Paralysis: No - HEENT Hx HEENT Problems: Yes (WEARS RX GLASSES) - RENAL Hx Chronic Kidney Disease: Yes Hx Dialysis: Yes (daily) Hx Renal Failure: Yes Other/Comment: llq abd peritoneal dialysis inserted 06/10/16. 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, pt performs peritoneal dialysis at home - ENDOCRINE/METABOLIC Hx Endocrine Disorders: No - HEMATOLOGICAL/ONCOLOGICAL Hx Blood Transfusions: Yes (01/2017) Hx Blood Transfusion Reaction: No - INTEGUMENTARY Hx Dermatological Problems: No - MUSCULOSKELETAL/RHEUMATOLOGICAL Hx Musculoskeletal Disorders: No - GASTROINTESTINAL Hx Gastrointestinal Disorders: No Hx Gall Bladder Disease: Yes (stones) - GENITOURINARY/GYNECOLOGICAL Hx Genitourinary Disorders: Yes Other/Comment: ANURIC - PSYCHIATRIC Hx Emotional Abuse: No Hx Physical Abuse: No Hx Substance Use: No - SURGICAL HISTORY Hx Kidney Transplant: Yes (2003) Hx Vascular Access Device: Yes (Permacath) Other/Comment: PD placement in the LLQ and dialysis port to chest removed. R kidney transplant - ANESTHESIA Hx Anesthesia Reactions: No Hx Malignant Hyperthermia: No Meds Allergies/Adverse Reactions: Allergies Allergy/AdvReac Type Severity Reaction Status Date / Time Iodine and Iodide Containing Allergy ANAPHYLAXIS Verified 03/03/17 15:55 Produc lactose Allergy DIARRHEA Verified 03/03/17 15:55 shellfish derived Allergy ANAPHYLAXIS Verified 03/03/17 15:55 - Medications Medications: Current Medications Acetaminophen (Tylenol 325mg Tab) 650 mg PO Q6H PRN PRN Reason: Fever >100.4 F Alprazolam (Xanax) 0.5 mg PO BID PRN; Protocol PRN Reason: Anxiety Amlodipine Besylate (Norvasc) 10 mg PO DAILY [facility] Calcitriol (Rocaltrol) 1 mcg PO DAILY [facility] Calcium Carbonate (Oscal) 500 mg PO BID [facility] Last Admin: 03/04/17 10:32 Dose: Not Given Clonidine HCl (Catapres) 0.1 mg PO BID [facility] Last Admin: 03/04/17 14:03 Dose: 0.1 mg Doxycycline Hyclate (Doryx) 100 mg PO Q12 [facility] PRN Reason: Protocol Stop: 03/13/17 10:01 Last Admin: 03/04/17 10:31 Dose: Not Given Fluoxetine HCl (Prozac) 20 mg PO HS [facility] Meropenem 250 mg/ Sodium (Chloride) 100 mls @ 100 mls/hr IVPB Q12H [facility] PRN Reason: Protocol Stop: 03/13/17 00:31 Last Admin: 03/04/17 02:36 Dose: 100 mls/hr Morphine Sulfate (Morphine) 2 mg IVP Q6H PRN PRN Reason: Pain, moderate (4-7) Last Admin: 03/04/17 08:29 Dose: 2 mg Ondansetron HCl (Zofran Inj) 4 mg IVP Q4 PRN PRN Reason: Nausea/Vomiting Last Admin: 03/04/17 00:55 Dose: 4 mg Pantoprazole Sodium (Protonix Ec Tab) 20 mg PO 0600 [facility] Prednisone (Prednisone Tab) 5 mg PO DAILY [facility] Tacrolimus (Prograf Cap) 1.5 mg PO Q12 [facility] Last Admin: 03/04/17 10:32 Dose: Not Given Physical Exam - Constitutional Appears: No Acute Distress - Head Exam Head Exam: NORMOCEPHALIC - Eye Exam Eye Exam: Normal appearance. absent: Scleral icterus - ENT Exam ENT Exam: Mucous Membranes Moist - Neck Exam Neck exam: Positive for: Normal Inspection - Respiratory Exam Respiratory Exam: NORMAL BREATHING PATTERN. absent: Respiratory Distress - Cardiovascular Exam Cardiovascular Exam: +S1, +S2 - GI/Abdominal Exam GI & Abdominal Exam: Hyperactive Bowel Sounds, Soft, Tenderness (diffuse mid abdomen). absent: Guarding, Rebound Additional comments: left upper quadrant positive peritoneal dialysis catheter insertion site is dry and intact no erythema or discharge - Extremities Exam Extremities exam: Positive for: pedal pulses present. Negative for: calf tenderness, pedal edema - Neurological Exam Neurological exam: Alert, Oriented x3 - Skin Skin Exam: Dry, Warm Results - Vital Signs Recent Vital Signs: Last Vital Signs Temp 99.2 F 03/04/17 15:11 Pulse 94 H 03/04/17 15:11 Resp 20 03/04/17 15:11 BP 184/111 H 03/04/17 15:11 Pulse Ox 97 03/04/17 08:45 - Labs Result Diagrams: 03/04/17 12:30 03/04/17 10:00 Labs: Laboratory Results - last 24 hr 03/04/17 03/04/17 03/04/17 06:15 10:00 10:00 WBC 8.5 D RBC 2.39 L Hgb 7.1 L Hct 21.5 L MCV 90.0 MCH 29.7 MCHC 33.0 RDW 13.7 Plt Count 121 MPV 9.7 Gran % 84.7 H Lymph % (Auto) 6.9 L Woods % (Auto) 7.4 H Eos % (Auto) 0.9 L Baso % (Auto) 0.1 Gran # 7.20 H Lymph # 0.6 L Woods # 0.6 Eos # 0.1 Baso # 0.01 Sodium 134 Potassium 4.0 Chloride 93 L Carbon Dioxide 27 Anion Gap 18 BUN 42 H Creatinine 14.9 H* Est GFR ( Amer) 4 Est GFR (Non-Af Amer) 3 Random Glucose 69 L Calcium 6.5 L* Total Bilirubin 0.7 AST 19 ALT 27 Alkaline Phosphatase 65 Total Protein 5.7 L Albumin 2.6 L Globulin 3.0 Albumin/Globulin Ratio 0.9 L Procalcitonin 17.05 H Blood Type Antibody Screen Crossmatch BBK History Checked 03/04/17 03/04/17 11:35 12:30 WBC 10.6 D RBC 2.14 L Hgb 6.6 L* Hct 19.1 L* MCV 89.3 MCH 30.8 MCHC 34.6 RDW 13.7 Plt Count 122 MPV 9.8 Gran % Lymph % (Auto) Woods % (Auto) Eos % (Auto) Baso % (Auto) Gran # Lymph # Woods # Eos # Baso # Sodium Potassium Chloride Carbon Dioxide Anion Gap BUN Creatinine Est GFR ( Amer) Est GFR (Non-Af Amer) Random Glucose Calcium Total Bilirubin AST ALT Alkaline Phosphatase Total Protein Albumin Globulin Albumin/Globulin Ratio Procalcitonin Blood Type A POSITIVE Antibody Screen Negative Crossmatch See Detail BBK History Checked Patient has bt Assessment & Plan - Assessment and Plan (Free Text) Assessment: Assessment: Abdominal pain Episode of Coffee ground vomitus Duodenal ulcers H/O Peritonitis End-stage renal disease secondary to IgA no neuropathy status post renal transplant Chronic anemia Hypertension History of colon polyps Plan: Continue clear liquids consider advancing as abdominal pain improves Continue PPI Monitor H&H, transfuse as necessary On oral and IV antibiotics Abdominal US eval distended GB On prednisone On Prograf As per renal and surgery Thank you for this consult and for allowing us to participate in your patient's care, further recommendations based upon clinical course. Seen and discussed with Dr. Perales. <Emre Perales V - Last Filed: 03/04/17 23:09> Meds - Medications Medications: Current Medications Acetaminophen (Tylenol 325mg Tab) 650 mg PO Q6H PRN PRN Reason: Fever >100.4 F Alprazolam (Xanax) 0.5 mg PO BID PRN; Protocol PRN Reason: Anxiety Amlodipine Besylate (Norvasc) 10 mg PO DAILY [facility] Last Admin: 03/04/17 15:56 Dose: 10 mg Calcitriol (Rocaltrol) 1 mcg PO DAILY [facility] Last Admin: 03/04/17 15:55 Dose: 1 mcg Calcium Carbonate (Oscal) 500 mg PO BID [facility] Last Admin: 03/04/17 18:44 Dose: 500 mg Clonidine HCl (Catapres) 0.1 mg PO BID [facility] Last Admin: 03/04/17 18:44 Dose: 0.1 mg Doxycycline Hyclate (Doryx) 100 mg PO Q12 [facility] PRN Reason: Protocol Stop: 03/13/17 10:01 Last Admin: 03/04/17 21:41 Dose: 100 mg Fluoxetine HCl (Prozac) 20 mg PO HS [facility] Last Admin: 03/04/17 21:42 Dose: 20 mg Meropenem 250 mg/ Sodium (Chloride) 100 mls @ 100 mls/hr IVPB Q12H [facility] PRN Reason: Protocol Stop: 03/13/17 00:31 Last Admin: 03/04/17 16:00 Dose: 100 mls/hr Morphine Sulfate (Morphine) 2 mg IVP Q6H PRN PRN Reason: Pain, moderate (4-7) Last Admin: 03/04/17 15:56 Dose: 2 mg Ondansetron HCl (Zofran Inj) 4 mg IVP Q4 PRN PRN Reason: Nausea/Vomiting Last Admin: 03/04/17 22:09 Dose: 4 mg Pantoprazole Sodium (Protonix Ec Tab) 20 mg PO 0600 [facility] Prednisone (Prednisone Tab) 5 mg PO DAILY [facility] Last Admin: 03/04/17 15:56 Dose: 5 mg Tacrolimus (Prograf Cap) 1.5 mg PO Q12 [facility] Last Admin: 03/04/17 21:41 Dose: 1.5 mg Results - Vital Signs Recent Vital Signs: Last Vital Signs Temp 98.5 F 03/04/17 16:00 Pulse 105 H 03/04/17 18:44 Resp 20 03/04/17 16:00 BP 171/86 H 03/04/17 18:44 Pulse Ox 97 03/04/17 16:00 - Labs Result Diagrams: 03/04/17 12:30 03/04/17 10:00 Labs: Laboratory Results - last 24 hr 03/04/17 03/04/17 03/04/17 06:15 10:00 10:00 WBC 8.5 D RBC 2.39 L Hgb 7.1 L Hct 21.5 L MCV 90.0 MCH 29.7 MCHC 33.0 RDW 13.7 Plt Count 121 MPV 9.7 Gran % 84.7 H Lymph % (Auto) 6.9 L Woods % (Auto) 7.4 H Eos % (Auto) 0.9 L Baso % (Auto) 0.1 Gran # 7.20 H Lymph # 0.6 L Woods # 0.6 Eos # 0.1 Baso # 0.01 Sodium 134 Potassium 4.0 Chloride 93 L Carbon Dioxide 27 Anion Gap 18 BUN 42 H Creatinine 14.9 H* Est GFR ( Amer) 4 Est GFR (Non-Af Amer) 3 POC Glucose (mg/dL) Random Glucose 69 L Calcium 6.5 L* Total Bilirubin 0.7 AST 19 ALT 27 Alkaline Phosphatase 65 Total Protein 5.7 L Albumin 2.6 L Globulin 3.0 Albumin/Globulin Ratio 0.9 L Procalcitonin 17.05 H Blood Type Antibody Screen Crossmatch BBK History Checked 03/04/17 03/04/17 03/04/17 11:35 12:30 17:20 WBC 10.6 D RBC 2.14 L Hgb 6.6 L* Hct 19.1 L* MCV 89.3 MCH 30.8 MCHC 34.6 RDW 13.7 Plt Count 122 MPV 9.8 Gran % Lymph % (Auto) Woods % (Auto) Eos % (Auto) Baso % (Auto) Gran # Lymph # Woods # Eos # Baso # Sodium Potassium Chloride Carbon Dioxide Anion Gap BUN Creatinine Est GFR ( Amer) Est GFR (Non-Af Amer) POC Glucose (mg/dL) 109 Random Glucose Calcium Total Bilirubin AST ALT Alkaline Phosphatase Total Protein Albumin Globulin Albumin/Globulin Ratio Procalcitonin Blood Type A POSITIVE Antibody Screen Negative Crossmatch See Detail BBK History Checked Patient has bt Attending/Attestation - Attestation I have personally seen and examined this patient.: Yes I have fully participated in the care of the patient.: Yes I have reviewed all pertinent clinical information: Yes Notes (Text): This is an addendum to GI consult report dictated by Rayna Arreola APN.The patient was seen and examined earlier. Medical records, lab studies, imagings were reviewed. Last 24 hours events reviewed. Agreed with the above treatment plan as outlined in Rayna Arreola APN's notes the with the addition of the following patient had an episode of vomiting earlier today. Complains of diffuse abdominal pain. Patient is having peritoneal dialysis Fluid sent for culture Chest x-ray revealed a persistent an infiltrate Ultrasound scan of the abdomen requested was reviewed showed gallstones Last EGD and colonoscopy reports reviewed patient does have a duodenal ulcers Would recommend 1. Follow up cultures and continue antibiotics as per ID 2. PPI 3. If the patient still has significant tenderness in the right upper abdomen will consider HIDA scan 4. Would consider EGD 5. Clear liquid diet 6. The CT scan did not reveal any obvious mechanical obstruction Thank you very much for allowing us to precipitate in the care of the patient 03/04/17 23:07
--- NOTE | 2017-03-04 16:35 | CP.PCM.PN ---
<Terri Lopez - Last Filed: 03/04/17 16:31> Subjective - Date & Time of Evaluation Date of Evaluation: 03/04/17 Time of Evaluation: 09:00 - Subjective Subjective: Surgery: Dr. Alejo Pt seen and examined. No acute overnight events. Pt states he still has abdominal pain mostly in the epigastric/periumbilical region. States he has not had any more episodes of vomiting. Denies blood in his stool. Denies F/C. Objective - Vital Signs/Intake and Output Vital Signs (last 24 hours): Temp Pulse Resp BP Pulse Ox 99.2 F 94 H 20 168/87 H 97 03/04/17 15:11 03/04/17 15:11 03/04/17 15:11 03/04/17 15:56 03/04/17 08:45 Intake and Output: 03/04/17 03/04/17 06:59 18:59 Intake Total 350 290 Balance 350 290 - Medications Medications: Current Medications Acetaminophen (Tylenol 325mg Tab) 650 mg PO Q6H PRN PRN Reason: Fever >100.4 F Alprazolam (Xanax) 0.5 mg PO BID PRN; Protocol PRN Reason: Anxiety Amlodipine Besylate (Norvasc) 10 mg PO DAILY [facility] Last Admin: 03/04/17 15:56 Dose: 10 mg Calcitriol (Rocaltrol) 1 mcg PO DAILY [facility] Last Admin: 03/04/17 15:55 Dose: 1 mcg Calcium Carbonate (Oscal) 500 mg PO BID [facility] Last Admin: 03/04/17 10:32 Dose: Not Given Clonidine HCl (Catapres) 0.1 mg PO BID [facility] Last Admin: 03/04/17 14:03 Dose: 0.1 mg Doxycycline Hyclate (Doryx) 100 mg PO Q12 [facility] PRN Reason: Protocol Stop: 03/13/17 10:01 Last Admin: 03/04/17 10:31 Dose: Not Given Fluoxetine HCl (Prozac) 20 mg PO HS [facility] Meropenem 250 mg/ Sodium (Chloride) 100 mls @ 100 mls/hr IVPB Q12H [facility] PRN Reason: Protocol Stop: 03/13/17 00:31 Last Admin: 03/04/17 16:00 Dose: 100 mls/hr Morphine Sulfate (Morphine) 2 mg IVP Q6H PRN PRN Reason: Pain, moderate (4-7) Last Admin: 03/04/17 15:56 Dose: 2 mg Ondansetron HCl (Zofran Inj) 4 mg IVP Q4 PRN PRN Reason: Nausea/Vomiting Last Admin: 03/04/17 15:56 Dose: 4 mg Pantoprazole Sodium (Protonix Ec Tab) 20 mg PO 0600 [facility] Prednisone (Prednisone Tab) 5 mg PO DAILY [facility] Last Admin: 03/04/17 15:56 Dose: 5 mg Tacrolimus (Prograf Cap) 1.5 mg PO Q12 [facility] Last Admin: 03/04/17 10:32 Dose: Not Given - Labs Labs: 03/04/17 12:30 03/04/17 10:00 PT 13.7 SECONDS (9.4-12.5) H 03/03/17 16:00 INR 1.20 (0.93-1.08) H 03/03/17 16:00 APTT 32.1 Seconds (25.1-36.5) 03/03/17 16:00 - Constitutional Appears: Well, No Acute Distress - Head Exam Head Exam: ATRAUMATIC, NORMOCEPHALIC - Eye Exam Eye Exam: Normal appearance - ENT Exam ENT Exam: Mucous Membranes Moist - Respiratory Exam Respiratory Exam: NORMAL BREATHING PATTERN - Cardiovascular Exam Cardiovascular Exam: RRR - GI/Abdominal Exam GI & Abdominal Exam: Distended (slightly distended ), Soft, Tenderness (around epigastric/periumbilical region ). absent: Guarding, Rebound - Extremities Exam Additional comments: L arm AVF with palpable thrill - Neurological Exam Neurological Exam: Alert, Awake, Oriented x3 - Skin Skin Exam: Dry, Intact, Warm Assessment and Plan - Assessment and Plan (Free Text) Assessment: 51M with admitted for abdominal pain Plan: - advance diet slowly as tolerated - serial abdominal exams - GI on board, f/u recs - d/w Sr. Sapna Lopez, PGY-3 Surgery <Ashok Alejo - Last Filed: 03/04/17 20:15> Objective - Vital Signs/Intake and Output Vital Signs (last 24 hours): Temp Pulse Resp BP Pulse Ox 98.5 F 105 H 20 171/86 H 97 03/04/17 16:00 03/04/17 18:44 03/04/17 16:00 03/04/17 18:44 03/04/17 16:00 Intake and Output: 03/04/17 03/05/17 18:59 06:59 Intake Total 290 Balance 290 - Medications Medications: Current Medications Acetaminophen (Tylenol 325mg Tab) 650 mg PO Q6H PRN PRN Reason: Fever >100.4 F Alprazolam (Xanax) 0.5 mg PO BID PRN; Protocol PRN Reason: Anxiety Amlodipine Besylate (Norvasc) 10 mg PO DAILY [facility] Last Admin: 03/04/17 15:56 Dose: 10 mg Calcitriol (Rocaltrol) 1 mcg PO DAILY [facility] Last Admin: 03/04/17 15:55 Dose: 1 mcg Calcium Carbonate (Oscal) 500 mg PO BID [facility] Last Admin: 03/04/17 18:44 Dose: 500 mg Clonidine HCl (Catapres) 0.1 mg PO BID [facility] Last Admin: 03/04/17 18:44 Dose: 0.1 mg Doxycycline Hyclate (Doryx) 100 mg PO Q12 [facility] PRN Reason: Protocol Stop: 03/13/17 10:01 Last Admin: 03/04/17 10:31 Dose: Not Given Fluoxetine HCl (Prozac) 20 mg PO HS [facility] Meropenem 250 mg/ Sodium (Chloride) 100 mls @ 100 mls/hr IVPB Q12H [facility] PRN Reason: Protocol Stop: 03/13/17 00:31 Last Admin: 03/04/17 16:00 Dose: 100 mls/hr Morphine Sulfate (Morphine) 2 mg IVP Q6H PRN PRN Reason: Pain, moderate (4-7) Last Admin: 03/04/17 15:56 Dose: 2 mg Ondansetron HCl (Zofran Inj) 4 mg IVP Q4 PRN PRN Reason: Nausea/Vomiting Last Admin: 03/04/17 18:44 Dose: 4 mg Pantoprazole Sodium (Protonix Ec Tab) 20 mg PO 0600 [facility] Prednisone (Prednisone Tab) 5 mg PO DAILY [facility] Last Admin: 03/04/17 15:56 Dose: 5 mg Tacrolimus (Prograf Cap) 1.5 mg PO Q12 [facility] Last Admin: 03/04/17 10:32 Dose: Not Given - Labs Labs: 03/04/17 12:30 03/04/17 10:00 PT 13.7 SECONDS (9.4-12.5) H 03/03/17 16:00 INR 1.20 (0.93-1.08) H 03/03/17 16:00 APTT 32.1 Seconds (25.1-36.5) 03/03/17 16:00 Assessment and Plan - Assessment and Plan (Free Text) Plan: Patient was seen, evaluated and examined by me. I agree with the assessment and plan as per the resident's note.
--- NOTE | 2017-03-04 20:34 | CON ---
DATE: 03/04/2017 LOCATION: The patient is in bed, was seen early this morning in room 367, bed 2. CHIEF COMPLAINT: Abdominal pain times two to three days duration. HISTORY OF PRESENT ILLNESS: This is a 51-year-old male with history of IgA nephropathy, history of chronic kidney disease, chronic renal failure, and with peritoneal dialysis, history of hypertension, depression, small bowel obstruction who was admitted with abdominal pain. He does have cough. He states there has been low-grade fevers. No chills. No headaches or blurred vision. PAST MEDICAL HISTORY: Significant for IgA nephropathy, chronic renal failure and he is on peritoneal dialysis, history of small bowel obstruction, hypertension and depression. PAST SURGICAL HISTORY: Significant for renal transplant in 2003, which was rejected in 2007. The patient also had a colonoscopy, which revealed tubular adenoma. The patient also had a right Perm-A-Cath placed in January of 2017 and a left arm fistula in 02/12/2017. ALLERGIES: INCLUDE, IODINE, IODINE CONTAINING PRODUCTS, LACTOSE AND SHELLFISH. MEDICATIONS AT HOME: Includes the patient to be on as listed. PHYSICAL EXAMINATION VITAL SIGNS: Temperature is 98, blood pressure is 170/100, respiratory rate of 20 and heart rate of 99. HEENT: Unremarkable. NECK: Supple. LUNGS: Have decreased breath sounds. HEART: Normal S1 and S2. ABDOMEN: Soft and nontender. dialysis catheter site is clean. LABORATORY EXAMINATION: Reveals a white count of 11,800 and 91% granulocytosis. Coagulation is noted and gases are reviewed. Creatinine is 13. Procalcitonin is 17.05. The patient's chest x-ray is positive for right lower lobe. CAT scan of the abdomen is negative. EKG shows QTc of 479. ASSESSMENT: This is a 51-year-old male with IgA nephropathy and chronic renal failure on hemodialysis. 1. Right lower lobe healthcare-associated pneumonia, must rule out spontaneous bacteria peritonitis, should send the peritoneal fluid for cell count, gram stain and culture. Blood cultures have been sent. Urine and sputum cultures have been ordered and we will start the patient empirically on doxycycline and meropenem and pending workup. Initial culture results and cell count in the peritoneal fluid. We will follow closely with you. Baldomero Reid MD
--- NOTE | 2017-03-04 21:41 | CON ---
NEPHROLOGY CONSULTATION DATE: HISTORY OF PRESENT ILLNESS: A 51-year-old male with past medical history of IgA nephropathy; ESRD, on peritoneal dialysis, status post living-related kidney donation in 2003 with transplant having failed in 2014 presented to ED yesterday after developing severe abdominal pain. Nephrology being consulted for ESRD care. The patient has been having intermittent abdominal pain since the past 1 week; pain had been resolving when seen at dialysis unit last Thursday; however, the patient reports that pain has had subsequently increased and was severe enough to warrant coming into ED; the patient states pain is mainly in periumbilical/suprapubic area and has been relatively constant lately; did not have any nausea or vomiting until his presentation yesterday at which time he vomited two times with brownish/coffee-ground emesis; the patient denies having any diarrhea. Last bowel movement was 2 days ago and was reportedly normal. The patient otherwise had been doing well with his PD and achieving good ultrafiltration; last weight at home was 157 pounds, which is his dry weight. PAST MEDICAL HISTORY: As above. The patient with two episodes of peritonitis since starting PD in 07/2016; the patient also was at [facility] in 12/2016 with abdominal pain and was told about need for elective cholecystectomy; the patient also status post new left forearm AV fistula creation earlier this month; developed a hematoma soon afterward at proximal end of fistula; SOCIAL HISTORY: Denies smoking. FAMILY HISTORY: Mother with rheumatoid fever. REVIEW OF SYSTEMS: CONSTITUTIONAL: Denies fevers or chills. HEENT: No reported visual changes. No sore throat, has been having nasal discharge lately. RESPIRATORY: Denies cough. Denies shortness of breath. CARDIOVASCULAR: Denies chest pain or palpitations. GASTROINTESTINAL: Abdominal pain as per HPI. Also with acid reflux symptoms, on Protonix GENITOURINARY: Anuric. PSYCHIATRIC: History of anxiety, on Xanax p.r.n. Depression has improved, on Prozac. MUSCULOSKELETAL: Denies any aches or pains. No muscle soreness. No cramps. NEUROLOGIC: No tremors noted. SKIN: Denies any itching or rashes. PHYSICAL EXAMINATION: VITAL SIGNS: This morning; blood pressure 145/100, heart rate 86, respirations 18, temperature 99.2, and O2 sat 97% on room air. GENERAL: No distress and conversing coherently in full sentences. HEENT: Moist mucous membranes. Nonicteric. No cervical lymphadenopathy. RESPIRATORY: Lungs are clear to auscultation bilaterally, although with very mild right basal rales appreciated. CARDIOVASCULAR: Heart sounds S1 and S2 normal. No murmurs or gallops or rubs. GASTROINTESTINAL: Abdomen is soft and nondistended, mild lower quadrant tenderness to light palpation. EXTREMITIES: No leg edema, left forearm AV fistula with resolving proximal hematoma otherwise with good thrill and bruits. SKIN: Warm. No cyanosis. NEUROLOGIC: No tremor of outstretched hands. LABORATORY DATA: Labs CBC from yesterday; WBC 11.8, hemoglobin 8.6, hematocrit 25.5, and platelets 174. Chemistry panel, sodium 134, potassium 3.7, chloride 93, bicarb 29, BUN 35, creatinine 13.3, calcium 6.9, magnesium 1.4, and albumin 3.0. Chest x-ray right lower lobe possible infiltrate, right pleural effusion noted. ASSESSMENT AND PLAN: 1. End-stage renal disease, on peritoneal dialysis. The patient has been doing well with his peritoneal dialysis since restarting it after being on backup hemodialysis last month; per outpatient labs, his clearance have been well and the patient is able to achieve his dry weight of 157 pounds; the patient currently feels hesitant in doing peritoneal dialysis given his abdominal pain and would like to do backup hemodialysis as he has access in place (right tunneled IJ hemodialysis catheter). We will do hemodialysis today on 3-K, 2.5 calcium, 32 bicarb, dialysate over 3.5 hours with 500 mL net ultrafiltration. 2. Abdominal pain and no cloudy peritoneal dialysis fluid noted; fluid sent for culture and should have cell count done as well; symptoms likely due to viral illness; however, it should be noted that the patient reports having been told of need for elective cholecystectomy at a recent admission 2 months ago; however, CT does not show evidence of gallstones. Follow up surgical recommendations. Follow up peritoneal dialysis fluid, cell count, and culture. 3. Anemia of chronic kidney disease. The patient with admission last month for symptomatic anemia and was transfused packed red blood cell; the patient now on higher dose of Aranesp 100 mcg every 2 weeks and on maintenance IV iron 100 mg monthly; hemoglobin has improved from 7.9 last week to 8.6 on labs done yesterday. Iron studies done last week, which showed iron saturation of 28% and ferritin of 934; however in light of the patient's reported coffee-ground emesis should obtain stool for occult blood. 4. Chronic kidney disease, mineral bone disorder. The patient with PTH hypocalcemia when corrected for hypoalbuminemia, serum calcium of 7.7; also with secondary hyperparathyroidism of renal origin with PTH last week of 717; calcitriol dose was increased to 0.75 mcg daily; however, the patient did not start the new prescription; for now, we will give calcitriol 1 mcg daily and start p.o. calcium supplementation with Os-Pravin 500 mg b.i.d.; phosphorus otherwise has been controlled with phos last week 5.1. The patient is on Auryxia 210 mg 3 tablets with each meal should continue the same. 5. Hypertensive chronic kidney disease, blood pressure currently elevated. The patient on home medications of clonidine 0.1 mg b.i.d. and amlodipine 10 mg daily should continue the same. 6. Immunosuppression. The patient is status post renal transplant, still on low dose of immunosuppressive meds with tacrolimus mg b.i.d. and prednisone 5 mg daily, continue the same. 7. Pneumonia. The patient with possible right lower lobe infiltrate, started on broad-spectrum antibiotics with meropenem 250 mg q.12 hours., doxycycline 100 mg q.12 hours and given dose of vancomycin last night; and meropenem dosed for the PD, no dose adjustment needed for doxycycline. Thank you for this referral. We will be following closely. Kris Forbes MD
[2017-03-04] MEDS ORDERED: Pantoprazole 20 mg EC Tab PO ONE (22:08)
--- NOTE | 2017-03-04 23:33 | HP ---
HISTORY OF PRESENT ILLNESS: The patient is a 51-year-old male with a history of end-stage kidney disease on peritoneal dialysis who reports abdominal pain for the past 1-2 days with nausea and some vomiting occasionally with coffee-ground emesis. He denies any melena, no bright red blood per rectum. He denies any fevers or chills. No chest pain or shortness of breath. The patient's past medical history includes history of IgA nephropathy with end-stage kidney disease. He is status post renal transplant approximately 10 years ago with rejection approximately 2 years ago. The patient had an admission approximately 2 months ago for peritonitis at [facility]3]. PAST MEDICAL HISTORY: Also includes hypertension and asthma. PAST SURGICAL HISTORY: As above. ALLERGIES: THE PATIENT HAS A ALLERGY TO IODINE, SHELLFISH AND IODINATED CONTRAST. CURRENT MEDICATIONS: Include; Prograf 1.5 mg twice daily, clonidine 0.1 mg twice daily, morphine sulfate 2 mg IV q. 4 hours p.r.n., amlodipine 10 mg daily, calcium carbonate 500 mg twice daily, prednisone 5 mg daily, Prozac 20 mg daily, Rocaltrol 1 mcg daily, Rocephin 1 g IV q.24 hours, Xanax 0.5 mg twice daily and ondansetron 4 mg IV p.r.n. nausea and vomiting. He is also on doxycycline 100 mg q.12 hours and meropenem 250 mg IV q.12 hours. REVIEW OF SYSTEMS: Essentially as above. There is no jaundice nor rash. No edema. The patient is status post AV fistula placement by Dr. Alejo in the left arm. SOCIAL HISTORY: The patient has no history of alcohol or tobacco use. He is independent with ADLs and IADLs. PHYSICAL EXAMINATION GENERAL: The patient is a well-developed, mildly cachectic male in no acute distress. VITAL SIGNS: Blood pressure 145/100, temperature 99.2, pulse 86 and respiratory rate 18. HEENT: Head is normocephalic and atraumatic. Pupils equal, round and react to light. Extraocular movements intact. NECK: Supple. No thyromegaly. No carotid bruit. No adenopathy. LUNGS: Show a few crepitations at the left base. HEART: Regular rate and rhythm. ABDOMEN: Soft and nontender. Bowel sounds are normoactive. Dialysis catheter is intact. There is no discharge at the insertion site. EXTREMITIES: Without cyanosis, clubbing or edema. There is a AV fistula of the left arm with decreased bruit. NEUROLOGIC: The patient is awake and right x3 without focal sensory motor deficits. SKIN: Warm and dry. LABORATORY DATA: WBC is 8.5, hemoglobin 7.1 and hematocrit 21.5. Sodium 134, potassium 4.0, chloride 93, CO2 of 27, BUN 42 and creatinine 14.9. The patient is presently on hemodialysis. Chest x-ray shows a right lower lobe infiltrate with right pleural effusion which is persistent. The patient has CT the abdomen and pelvis without contrast which showed no evidence of mechanical bowel obstruction. IMPRESSION: 1. End-stage kidney disease, history of IgA nephropathy status post transplant with rejection on peritoneal dialysis, rule out recurrent peritonitis. 2. Hypertension. 3. Asthma. 4. Anemia secondary to chronic renal failure, rule out gastrointestinal bleed. PLAN: The patient is admitted to the medical-surgical floor. He is currently on hemodialysis consultation with Dr. Forbes. Infectious Disease consult with Dr. Reid is appreciated. Surgical consult with Dr. Alejo and GI consult with Dr. Perales. THELMA Rosas MD
--- NOTE | 2017-03-05 00:31 | US ---
EXAM: US Abdomen Complete EXAM DATE/TIME: 03/04/2017 5:11 PM CLINICAL HISTORY: 51 years old, male; Pain; Abdominal pain; Generalized; Additional info: End-stage renal disease on peritoneal dialysis; transplanted kidney in the right lower quadrant, dystrophic calcification seen in transplanted kidney on recent CT Gender: male TECHNIQUE: Real-time ultrasound of the abdomen (complete) with image documentation. COMPARISON: There are no prior studies for comparison. FINDINGS: Liver: Liver is unremarkable. There is hepatopedal flow in the main portal vein. Gallbladder: Gallbladder is distended. There is dependent sludge. There are shadowing stones. There is no wall thickening. Common bile duct: Proximal common duct measures 6 mm in diameter. Distal duct is obscured by bowel gas Pancreas: Pancreas is almost completely obscured by bowel gas. Kidneys: Platinum kidneys are atrophic. There is increased echogenicity. Corticomedullary differentiation is not visualized.There are small cysts. Right kidney measures approximately 9.9 cm in length. Left kidney measures approximate 7 cm in length. There is a transplanted kidney in the right iliac fossa. There is mild pelvocaliectasis There is increased echogenicity within the transplanted kidney. Spleen: Spleen is unremarkable. Aorta: Aorta and inferior vena cava are poorly visualized due to bowel gas. Inferior vena cava: See above. Free fluid: There is free fluid in the pelvis. IMPRESSION: Distended gallbladder with stones and sludge no duct dilatation; medical renal disease with atrophy of apache kidneys; transplanted kidney in the right iliac fossa; fluid in the pelvis consistent with history of peritoneal dialysis
[2017-03-05] MEDS: Morphine 2 mg/ml ISec IVP PRN ×2 (01:23→09:31)
[2017-03-05] MEDS: Pantoprazole 20 mg EC Tab PO SCH (06:46)
[2017-03-05 08:32] LABS: MEAN CELL VOLUME 91.7 fl (80.0-105.0); MEAN CORPUSCULAR HEMOGLOBIN 29.9 pg (25.0-35.0); MEAN CORPUSCULAR HGB CONC 32.6 g/dl (31.0-37.0); MEAN PLATELET VOLUME 9.5 fl (7.0-11.0); RBC 3.01 10^6/uL (3.5-6.1); RED CELL DISTRIBUTION WIDTH 14.3 % (11.5-14.5); WHITE BLOOD COUNT 7.5 10^3/ul (4.5-11.0)
[2017-03-05 08:49] LABS: ALB/GLOB RATIO 0.8 (1.1-1.8); ALBUMIN 2.6 g/dL (3.0-4.8); CALCIUM 7.6 mg/dL (8.4-10.5)
--- NOTE | 2017-03-05 09:46 | CP.PCM.PN ---
Subjective - Date & Time of Evaluation Date of Evaluation: 03/05/17 Time of Evaluation: 09:00 - Subjective Subjective: c/o abdominal miladys, mild - mod., s/p transfusion 2 units PRBC's, no nausea/ vomiting, no chest pain, no SOB Objective - Vital Signs/Intake and Output Vital Signs (last 24 hours): Temp Pulse Resp BP Pulse Ox 98.3 F 82 18 142/76 97 03/05/17 06:12 03/05/17 06:12 03/05/17 06:12 03/05/17 09:30 03/04/17 16:00 Intake and Output: 03/05/17 03/05/17 06:59 18:59 Intake Total 695 0 Balance 695 0 - Medications Medications: Current Medications Acetaminophen (Tylenol 325mg Tab) 650 mg PO Q6H PRN PRN Reason: Fever >100.4 F Alprazolam (Xanax) 0.5 mg PO BID PRN; Protocol PRN Reason: Anxiety Amlodipine Besylate (Norvasc) 10 mg PO DAILY [facility] Last Admin: 03/05/17 09:30 Dose: 10 mg Calcitriol (Rocaltrol) 1 mcg PO DAILY [facility] Last Admin: 03/05/17 09:30 Dose: 1 mcg Calcium Carbonate (Oscal) 500 mg PO BID [facility] Last Admin: 03/05/17 09:31 Dose: 500 mg Clonidine HCl (Catapres) 0.1 mg PO BID [facility] Last Admin: 03/05/17 09:30 Dose: 0.1 mg Doxycycline Hyclate (Doryx) 100 mg PO Q12 JASSON PRN Reason: Protocol Stop: 03/13/17 10:01 Last Admin: 03/05/17 09:30 Dose: 100 mg Fluoxetine HCl (Prozac) 20 mg PO HS [facility] Last Admin: 03/04/17 21:42 Dose: 20 mg Meropenem 250 mg/ Sodium (Chloride) 100 mls @ 100 mls/hr IVPB Q12H JASSON PRN Reason: Protocol Stop: 03/13/17 00:31 Last Admin: 03/05/17 01:22 Dose: 100 mls/hr Morphine Sulfate (Morphine) 2 mg IVP Q6H PRN PRN Reason: Pain, moderate (4-7) Last Admin: 03/05/17 09:31 Dose: 2 mg Ondansetron HCl (Zofran Inj) 4 mg IVP Q4 PRN PRN Reason: Nausea/Vomiting Last Admin: 03/04/17 22:09 Dose: 4 mg Pantoprazole Sodium (Protonix Ec Tab) 20 mg PO 0600 [facility] Last Admin: 03/05/17 06:46 Dose: 20 mg Prednisone (Prednisone Tab) 5 mg PO DAILY [facility] Last Admin: 03/05/17 09:30 Dose: 5 mg Tacrolimus (Prograf Cap) 1.5 mg PO Q12 [facility] Last Admin: 03/04/17 21:41 Dose: 1.5 mg Valsartan (Diovan) 320 mg PO DAILY [facility] Last Admin: 03/05/17 09:30 Dose: 320 mg - Labs Labs: 03/05/17 08:00 03/05/17 08:00 PT 13.7 SECONDS (9.4-12.5) H 03/03/17 16:00 INR 1.20 (0.93-1.08) H 03/03/17 16:00 APTT 32.1 Seconds (25.1-36.5) 03/03/17 16:00 - Respiratory Exam Respiratory Exam: Clear to Ausculation Bilateral, NORMAL BREATHING PATTERN - Cardiovascular Exam Cardiovascular Exam: REGULAR RHYTHM - GI/Abdominal Exam GI & Abdominal Exam: Soft, Tenderness, Normal Bowel Sounds - Extremities Exam Extremities Exam: Normal Inspection - Neurological Exam Neurological Exam: Alert, Awake, Normal Gait - Skin Skin Exam: Dry, Warm Assessment and Plan (1) Abdominal pain Status: Acute (2) Anemia Status: Acute (3) Renal failure Status: Acute (4) Pneumonia Status: Acute (5) Peritonitis associated with peritoneal dialysis Status: Acute - Assessment and Plan (Free Text) Plan: continue IV antibiotics, renal, GI, ID, surgical follow-up, monitor Hb/Hct
--- NOTE | 2017-03-05 12:55 | CP.PCM.PN ---
Subjective - Date & Time of Evaluation Date of Evaluation: 03/05/17 Time of Evaluation: 07:00 - Subjective Subjective: GENERAL SURGERY PROGRESS NOTE FOR DR. OROZCO Patient seen and examined at bedside. He reports some nausea but no more vomiting. He still has some abdominal pain inferior to the umbilicus. He is passing flatus. Objective - Vital Signs/Intake and Output Vital Signs (last 24 hours): Temp Pulse Resp BP Pulse Ox 98.3 F 82 18 142/76 97 03/05/17 06:12 03/05/17 06:12 03/05/17 06:12 03/05/17 09:30 03/04/17 16:00 Intake and Output: 03/05/17 03/05/17 06:59 18:59 Intake Total 695 0 Balance 695 0 - Medications Medications: Current Medications Acetaminophen (Tylenol 325mg Tab) 650 mg PO Q6H PRN PRN Reason: Fever >100.4 F Alprazolam (Xanax) 0.5 mg PO BID PRN; Protocol PRN Reason: Anxiety Amlodipine Besylate (Norvasc) 10 mg PO DAILY [facility] Last Admin: 03/05/17 09:30 Dose: 10 mg Calcitriol (Rocaltrol) 1 mcg PO DAILY [facility] Last Admin: 03/05/17 09:30 Dose: 1 mcg Calcium Carbonate (Oscal) 500 mg PO BID [facility] Last Admin: 03/05/17 09:31 Dose: 500 mg Clonidine HCl (Catapres) 0.1 mg PO BID [facility] Last Admin: 03/05/17 09:30 Dose: 0.1 mg Doxycycline Hyclate (Doryx) 100 mg PO Q12 JASSON PRN Reason: Protocol Stop: 03/13/17 10:01 Last Admin: 03/05/17 09:30 Dose: 100 mg Fluoxetine HCl (Prozac) 20 mg PO HS [facility] Last Admin: 03/04/17 21:42 Dose: 20 mg Meropenem 250 mg/ Sodium (Chloride) 100 mls @ 100 mls/hr IVPB Q12H JASSON PRN Reason: Protocol Stop: 03/13/17 00:31 Last Admin: 03/05/17 01:22 Dose: 100 mls/hr Morphine Sulfate (Morphine) 2 mg IVP Q6H PRN PRN Reason: Pain, moderate (4-7) Last Admin: 03/05/17 09:31 Dose: 2 mg Ondansetron HCl (Zofran Inj) 4 mg IVP Q4 PRN PRN Reason: Nausea/Vomiting Last Admin: 03/05/17 09:58 Dose: 4 mg Pantoprazole Sodium (Protonix Ec Tab) 20 mg PO 0600 [facility] Last Admin: 03/05/17 06:46 Dose: 20 mg Prednisone (Prednisone Tab) 5 mg PO DAILY [facility] Last Admin: 03/05/17 09:30 Dose: 5 mg Tacrolimus (Prograf Cap) 1.5 mg PO Q12 [facility] Last Admin: 03/05/17 09:55 Dose: 1.5 mg Valsartan (Diovan) 320 mg PO DAILY [facility] Last Admin: 03/05/17 09:30 Dose: 320 mg - Labs Labs: 03/05/17 08:00 03/05/17 08:00 PT 13.7 SECONDS (9.4-12.5) H 03/03/17 16:00 INR 1.20 (0.93-1.08) H 03/03/17 16:00 APTT 32.1 Seconds (25.1-36.5) 03/03/17 16:00 - Constitutional Appears: Non-toxic, No Acute Distress, Chronically Ill - Head Exam Head Exam: ATRAUMATIC, NORMAL INSPECTION - Respiratory Exam Respiratory Exam: NORMAL BREATHING PATTERN. absent: Respiratory Distress - Cardiovascular Exam Cardiovascular Exam: +S1, +S2 - GI/Abdominal Exam GI & Abdominal Exam: Soft, Tenderness (mild periumbilical tenderness). absent: Distended, Firm, Guarding, Rigid, Rebound - Extremities Exam Additional comments: Left AVF: + thrill - Neurological Exam Neurological Exam: Alert, Awake, Oriented x3 - Psychiatric Exam Psychiatric exam: Normal Affect, Normal Mood - Skin Skin Exam: Dry, Normal Color, Warm Assessment and Plan - Assessment and Plan (Free Text) Assessment: 51yo M with PMHx of IgA nephropathy, ESRD s/p renal transplant on peritoneal dialysis, SBO, chronic anemia, HTN, peritonitis who presents with abdominal pain. - Afebrile, VSS - Hgb 9.0 (improved from 6.6 after 2 PRBC) - Stool occult blood ordered - US: distended gallbladder with sludge, stones, no wall thickening - No surgical intervention necessary for gallbadder. Gallbladder likely distended from not eating. Patient nontender in RUQ. - Advanced to full liquid diet - Continue IV Antibiotics per ID (currently on Merrem and Doxycycline) - Discussed plan with Dr. Sapna Russell PGY-3
--- NOTE | 2017-03-05 16:19 | CP.PCM.PN ---
<Diaz,Kovil V - Last Filed: 03/05/17 22:24> Objective - Vital Signs/Intake and Output Vital Signs (last 24 hours): Temp Pulse Resp BP Pulse Ox 98.8 F 82 20 140/95 H 99 03/05/17 16:30 03/05/17 16:30 03/05/17 16:30 03/05/17 16:30 03/05/17 16:30 Intake and Output: 03/05/17 03/06/17 18:59 06:59 Intake Total 0 Balance 0 - Medications Medications: Current Medications Acetaminophen (Tylenol 325mg Tab) 650 mg PO Q6H PRN PRN Reason: Fever >100.4 F Alprazolam (Xanax) 0.5 mg PO BID PRN; Protocol PRN Reason: Anxiety Amlodipine Besylate (Norvasc) 10 mg PO DAILY [facility] Last Admin: 03/05/17 09:30 Dose: 10 mg Calcitriol (Rocaltrol) 1 mcg PO DAILY [facility] Last Admin: 03/05/17 09:30 Dose: 1 mcg Calcium Carbonate (Oscal) 500 mg PO BID [facility] Last Admin: 03/05/17 17:36 Dose: 500 mg Clonidine HCl (Catapres) 0.1 mg PO BID [facility] Last Admin: 03/05/17 17:36 Dose: 0.1 mg Doxycycline Hyclate (Doryx) 100 mg PO Q12 JASSON PRN Reason: Protocol Stop: 03/13/17 10:01 Last Admin: 03/05/17 21:20 Dose: 100 mg Fluoxetine HCl (Prozac) 20 mg PO HS [facility] Last Admin: 03/05/17 21:20 Dose: 20 mg Hydromorphone HCl (Dilaudid) 0.5 mg IVP Q6H PRN PRN Reason: Pain, moderate (4-7) Last Admin: 03/05/17 21:20 Dose: 0.5 mg Meropenem 250 mg/ Sodium (Chloride) 100 mls @ 100 mls/hr IVPB Q12H JASSON PRN Reason: Protocol Stop: 03/13/17 00:31 Last Admin: 03/05/17 13:54 Dose: 100 mls/hr Ondansetron HCl (Zofran Inj) 4 mg IVP Q4 PRN PRN Reason: Nausea/Vomiting Last Admin: 03/05/17 21:20 Dose: 4 mg Pantoprazole Sodium (Protonix Ec Tab) 20 mg PO 0600 [facility] Last Admin: 03/05/17 06:46 Dose: 20 mg Prednisone (Prednisone Tab) 5 mg PO DAILY [facility] Last Admin: 03/05/17 09:30 Dose: 5 mg Sennosides (Senokot Tab) 17.2 mg PO HS [facility] Last Admin: 03/05/17 21:20 Dose: 17.2 mg Tacrolimus (Prograf Cap) 1.5 mg PO Q12 [facility] Last Admin: 03/05/17 21:19 Dose: 1.5 mg Valsartan (Diovan) 320 mg PO DAILY [facility] Last Admin: 03/05/17 09:30 Dose: 320 mg - Labs Labs: 03/05/17 08:00 03/05/17 08:00 PT 13.7 SECONDS (9.4-12.5) H 03/03/17 16:00 INR 1.20 (0.93-1.08) H 03/03/17 16:00 APTT 32.1 Seconds (25.1-36.5) 03/03/17 16:00 Attending/Attestation - Attestation I have personally seen and examined this patient.: Yes I have fully participated in the care of the patient.: Yes I have reviewed all pertinent clinical information, including history, physical exam and plan: Yes Notes (Text): This is an addendum to GI progress report dictated by Rayna Arreola APN.The patient was seen and examined earlier. Medical records, lab studies, imagings were reviewed. Last 24 hours events reviewed. Agreed with the above treatment plan as outlined in Rayna Arreola APN's notes the with the addition of the following Patient still complains of the diffuse abdominal pain. On examination her tenderness appears not localized to right upper quadrant area appears to be diffuse. Patient does have gallstones stones with a distended gallbladder however there is no wall thickening or pericholecystic inflammatory changes History of peptic ulcer disease last EGD showed a gastric and duodenal ulcerations Patient is having peritoneal dialysis the tenderness appears more towards the midline CT scan did not show any obvious obstructive features Would continue PPI Continue empiric antibiotic coverage Would request HIDA scan if the tenderness still persist and localized to more to a strict upper quadrantwith a negative cultures Thank you very much for allowing us to participate in the care of the patient 03/05/17 22:24 <Rayna Arreola - Last Filed: 03/06/17 11:11> Subjective - Date & Time of Evaluation Date of Evaluation: 03/05/17 Time of Evaluation: 10:45 - Subjective Subjective: Seen and examined at the bedside earlier today, check. Patient sent for abdominal ultrasound which showed distended gallbladder but no wall thickening, positive for sludge and shadowing stone, CBD measures 6 mm patient still complaining of pain mainly epigastric area some nausea no reports of vomiting. No acute overnight events reported. Objective - Vital Signs/Intake and Output Vital Signs (last 24 hours): Temp Pulse Resp BP Pulse Ox 98.3 F 82 18 142/76 97 03/05/17 06:12 03/05/17 06:12 03/05/17 06:12 03/05/17 09:30 03/04/17 16:00 Intake and Output: 03/05/17 03/05/17 06:59 18:59 Intake Total 695 0 Balance 695 0 - Medications Medications: Current Medications Acetaminophen (Tylenol 325mg Tab) 650 mg PO Q6H PRN PRN Reason: Fever >100.4 F Alprazolam (Xanax) 0.5 mg PO BID PRN; Protocol PRN Reason: Anxiety Amlodipine Besylate (Norvasc) 10 mg PO DAILY [facility] Last Admin: 03/05/17 09:30 Dose: 10 mg Calcitriol (Rocaltrol) 1 mcg PO DAILY [facility] Last Admin: 03/05/17 09:30 Dose: 1 mcg Calcium Carbonate (Oscal) 500 mg PO BID [facility] Last Admin: 03/05/17 09:31 Dose: 500 mg Clonidine HCl (Catapres) 0.1 mg PO BID [facility] Last Admin: 03/05/17 09:30 Dose: 0.1 mg Doxycycline Hyclate (Doryx) 100 mg PO Q12 JASSON PRN Reason: Protocol Stop: 03/13/17 10:01 Last Admin: 03/05/17 09:30 Dose: 100 mg Fluoxetine HCl (Prozac) 20 mg PO HS [facility] Last Admin: 03/04/17 21:42 Dose: 20 mg Meropenem 250 mg/ Sodium (Chloride) 100 mls @ 100 mls/hr IVPB Q12H [facility] PRN Reason: Protocol Stop: 03/13/17 00:31 Last Admin: 03/05/17 13:54 Dose: 100 mls/hr Morphine Sulfate (Morphine) 2 mg IVP Q6H PRN PRN Reason: Pain, moderate (4-7) Last Admin: 03/05/17 09:31 Dose: 2 mg Ondansetron HCl (Zofran Inj) 4 mg IVP Q4 PRN PRN Reason: Nausea/Vomiting Last Admin: 03/05/17 13:54 Dose: 4 mg Pantoprazole Sodium (Protonix Ec Tab) 20 mg PO 0600 [facility] Last Admin: 03/05/17 06:46 Dose: 20 mg Prednisone (Prednisone Tab) 5 mg PO DAILY [facility] Last Admin: 03/05/17 09:30 Dose: 5 mg Tacrolimus (Prograf Cap) 1.5 mg PO Q12 [facility] Last Admin: 03/05/17 09:55 Dose: 1.5 mg Valsartan (Diovan) 320 mg PO DAILY [facility] Last Admin: 03/05/17 09:30 Dose: 320 mg - Labs Labs: 03/05/17 08:00 03/05/17 08:00 PT 13.7 SECONDS (9.4-12.5) H 03/03/17 16:00 INR 1.20 (0.93-1.08) H 03/03/17 16:00 APTT 32.1 Seconds (25.1-36.5) 03/03/17 16:00 - Constitutional Appears: No Acute Distress - Head Exam Head Exam: NORMOCEPHALIC - Eye Exam Eye Exam: Normal appearance. absent: Scleral icterus - ENT Exam ENT Exam: Mucous Membranes Moist - Respiratory Exam Respiratory Exam: NORMAL BREATHING PATTERN. absent: Respiratory Distress - Cardiovascular Exam Cardiovascular Exam: +S1, +S2 - GI/Abdominal Exam GI & Abdominal Exam: Soft, Tenderness (epigastric), Normal Bowel Sounds. 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 Seen and discussed with Dr. Perales.
[2017-03-05] MEDS ORDERED: HYDROmorphone 0.5 mg/0.5 ml ISec IVP PRN (19:01)
--- NOTE | 2017-03-05 19:04 | CP.PCM.PN ---
Subjective - Date & Time of Evaluation Date of Evaluation: 03/05/17 Time of Evaluation: 13:00 - Subjective Subjective: Patient still with lower/periumbilical abd pain that is improved; tolerating liquid diet; reports feeling somewhat disoriented; no more vomiting; no BM since 3 days; Objective - Vital Signs/Intake and Output Vital Signs (last 24 hours): Temp Pulse Resp BP Pulse Ox 98.3 F 82 18 142/76 97 03/05/17 06:12 03/05/17 06:12 03/05/17 06:12 03/05/17 09:30 03/04/17 16:00 Intake and Output: 03/05/17 03/06/17 18:59 06:59 Intake Total 0 Balance 0 - Medications Medications: Current Medications Acetaminophen (Tylenol 325mg Tab) 650 mg PO Q6H PRN PRN Reason: Fever >100.4 F Alprazolam (Xanax) 0.5 mg PO BID PRN; Protocol PRN Reason: Anxiety Amlodipine Besylate (Norvasc) 10 mg PO DAILY [facility] Last Admin: 03/05/17 09:30 Dose: 10 mg Calcitriol (Rocaltrol) 1 mcg PO DAILY [facility] Last Admin: 03/05/17 09:30 Dose: 1 mcg Calcium Carbonate (Oscal) 500 mg PO BID [facility] Last Admin: 03/05/17 17:36 Dose: 500 mg Clonidine HCl (Catapres) 0.1 mg PO BID [facility] Last Admin: 03/05/17 17:36 Dose: 0.1 mg Doxycycline Hyclate (Doryx) 100 mg PO Q12 JASSON PRN Reason: Protocol Stop: 03/13/17 10:01 Last Admin: 03/05/17 09:30 Dose: 100 mg Fluoxetine HCl (Prozac) 20 mg PO HS [facility] Last Admin: 03/04/17 21:42 Dose: 20 mg Hydromorphone HCl (Dilaudid) 0.5 mg IVP Q6H PRN PRN Reason: Pain, moderate (4-7) Meropenem 250 mg/ Sodium (Chloride) 100 mls @ 100 mls/hr IVPB Q12H JASSON PRN Reason: Protocol Stop: 03/13/17 00:31 Last Admin: 03/05/17 13:54 Dose: 100 mls/hr Ondansetron HCl (Zofran Inj) 4 mg IVP Q4 PRN PRN Reason: Nausea/Vomiting Last Admin: 03/05/17 13:54 Dose: 4 mg Pantoprazole Sodium (Protonix Ec Tab) 20 mg PO 0600 [facility] Last Admin: 03/05/17 06:46 Dose: 20 mg Prednisone (Prednisone Tab) 5 mg PO DAILY [facility] Last Admin: 03/05/17 09:30 Dose: 5 mg Sennosides (Senokot Tab) 17.2 mg PO HS [facility] Tacrolimus (Prograf Cap) 1.5 mg PO Q12 [facility] Last Admin: 03/05/17 09:55 Dose: 1.5 mg Valsartan (Diovan) 320 mg PO DAILY [facility] Last Admin: 03/05/17 09:30 Dose: 320 mg - Labs Labs: 03/05/17 08:00 03/05/17 08:00 PT 13.7 SECONDS (9.4-12.5) H 03/03/17 16:00 INR 1.20 (0.93-1.08) H 03/03/17 16:00 APTT 32.1 Seconds (25.1-36.5) 03/03/17 16:00 - Constitutional Appears: Non-toxic, No Acute Distress - Eye Exam Eye Exam: Normal appearance. absent: Scleral icterus - ENT Exam ENT Exam: Mucous Membranes Moist - Respiratory Exam Respiratory Exam: Clear to Ausculation Bilateral. absent: Respiratory Distress - Cardiovascular Exam Cardiovascular Exam: RRR, +S1, +S2 - GI/Abdominal Exam GI & Abdominal Exam: Soft, Tenderness. absent: Distended Additional comments: mild katiuska-umbilical tenderness; - Extremities Exam Additional comments: no leg edema; - Neurological Exam Neurological Exam: Alert, Awake - Psychiatric Exam Psychiatric exam: Normal Affect, Normal Mood. absent: Agitated - Skin Skin Exam: Warm. absent: Cyanosis Assessment and Plan (1) ESRD on peritoneal dialysis Assessment & Plan: Stable electrolyte and volume status; s/p HD session yesterday at patient's request with minimal UF (weighed 147 lbs, about 10 lbs below his dry weight); next HD session tomorrow, again with minimal UF goal; Status: Acute (2) Hypertensive CKD, ESRD on dialysis Assessment & Plan: BP improved after restarting all home meds; continue same; Status: Acute (3) Chronic kidney disease-mineral and bone disorder Assessment & Plan: Secondary hyperparathyroidism of CKD; calcium level improving with supplementation and increased calcitriol dose (1 mcg daily); continue same; on auryxia as phos binder at home, not available here and patient reportedly did not tolerate phoslo or sevalamer previously; monitor phos level; Status: Acute (4) HCAP (healthcare-associated pneumonia) Assessment & Plan: On meropenem 250 mg q12h, dosed for ESRD, and doxycycline, continue per ID; Status: Acute (5) Abdominal pain Assessment & Plan: Will change IV morphine 2 mg to IV dilaudid 0.5 mg q6h prn to avoid accumulation of morphine metabolites in renal failure; otherwise, PD fluid culture neg (apparently, cell count was ordered but not sent); cholelithiasis on US, f/u with surgery; Status: Acute (6) Anemia Assessment & Plan: s/p 2 u prbc yesterday; hgb appropriately rising; suspected acute blood loss; f/ u with GI; will continue aranesp 100 mcg q2w as outpatient; Status: Acute
[2017-03-05] MEDS ORDERED: Pantoprazole 20 mg EC Tab PO ONE (21:48)
--- NOTE | 2017-03-05 22:05 | PN ---
DATE: 02/02/2018 SUBJECTIVE: The patient is in bed, in no acute distress, and nontoxic. PHYSICAL EXAMINATION: VITAL SIGNS: Temperature is 98, blood pressure is 140/70, and respiratory rate is 18. HEENT: Unremarkable. NECK: Supple. LUNGS: Have decreased breath sounds. HEART: Normal S1 and S2. ABDOMEN: Soft and nontender. LABORATORY DATA: Reveals a white count of 7.5, hemoglobin of 9, and platelets of 108. Coagulation is noted. Chemistry reveals a BUN of 20, creatinine of 7.3, and procalcitonin is 17. No fluid. Blood cultures, no growth. ASSESSMENT AND PLAN: A 51-year-old male seen earlier this morning and states he is still having some abdominal discomfort with a history of IgA nephropathy and chronic renal failure, on hemodialysis. 1. Right lower lobe healthcare-associated pneumonia, must rule out spontaneous bacterial peritonitis versus acute cholecystitis and currently on meropenem and doxycycline, awaiting for the peritoneal fluid culture thus far is no growth. The cell count is pending and the patient's does show distended gallbladder and stones and sludge and no ductal dilatation. We will follow closely with you. Baldomero Reid MD
[2017-03-05 22:20] VITALS: RESP 20
[2017-03-06] MEDS: Pantoprazole 20 mg EC Tab PO SCH (05:58)
[2017-03-06 07:00] LABS: EOS # 0.5 (0.0-0.7); EOS % 7.7 % (1.5-5.0); GRAN # 5.2 (1.4-6.5); GRAN % 74.5 % (50.0-68.0); HEMOGLOBIN 8.5 g/dL (14.0-18.0); LYMPH # 0.8 (1.2-3.4); LYMPH % 10.9 % (22.0-35.0); MEAN CORPUSCULAR HEMOGLOBIN 29.5 pg (25.0-35.0); MEAN CORPUSCULAR HGB CONC 32.4 g/dl (31.0-37.0); MEAN PLATELET VOLUME 9.9 fl (7.0-11.0); MONO # 0.5 (0.1-0.6); MONO % 6.9 % (1.0-6.0); RBC 2.88 10^6/uL (3.5-6.1); RED CELL DISTRIBUTION WIDTH 13.8 % (11.5-14.5)
[2017-03-06 07:55] LABS: ALB/GLOB RATIO 0.8 (1.1-1.8); ALBUMIN 2.4 g/dL (3.0-4.8); CALCIUM 7.5 mg/dL (8.4-10.5)
--- NOTE | 2017-03-06 10:09 | CP.PCM.PN ---
Subjective - Date & Time of Evaluation Date of Evaluation: 03/06/17 Time of Evaluation: 07:00 - Subjective Subjective: GENERAL SURGERY PROGRESS NOTE FOR DR. OROZCO Patient seen and examined while undergoing hemodialysis. He is tolerating soft diet. No nausea or vomiting. He has not had a BM since he came to the hospital so occult blood was unable to be collected yet. Objective - Vital Signs/Intake and Output Vital Signs (last 24 hours): Temp Pulse Resp BP Pulse Ox 98.8 F 82 20 140/95 H 99 03/05/17 16:30 03/05/17 16:30 03/05/17 16:30 03/05/17 16:30 03/05/17 16:30 Intake and Output: 03/06/17 03/06/17 06:59 18:59 Intake Total 480 Balance 480 - Medications Medications: Current Medications Acetaminophen (Tylenol 325mg Tab) 650 mg PO Q6H PRN PRN Reason: Fever >100.4 F Alprazolam (Xanax) 0.5 mg PO BID PRN; Protocol PRN Reason: Anxiety Amlodipine Besylate (Norvasc) 10 mg PO DAILY [facility] Last Admin: 03/05/17 09:30 Dose: 10 mg Calcitriol (Rocaltrol) 1 mcg PO DAILY [facility] Last Admin: 03/05/17 09:30 Dose: 1 mcg Calcium Carbonate (Oscal) 500 mg PO BID [facility] Last Admin: 03/05/17 17:36 Dose: 500 mg Clonidine HCl (Catapres) 0.1 mg PO BID [facility] Last Admin: 03/05/17 17:36 Dose: 0.1 mg Doxycycline Hyclate (Doryx) 100 mg PO Q12 JASSON PRN Reason: Protocol Stop: 03/13/17 10:01 Last Admin: 03/05/17 21:20 Dose: 100 mg Fluoxetine HCl (Prozac) 20 mg PO HS [facility] Last Admin: 03/05/17 21:20 Dose: 20 mg Hydromorphone HCl (Dilaudid) 0.5 mg IVP Q6H PRN PRN Reason: Pain, moderate (4-7) Last Admin: 03/05/17 21:20 Dose: 0.5 mg Meropenem 250 mg/ Sodium (Chloride) 100 mls @ 100 mls/hr IVPB Q12H JASSON PRN Reason: Protocol Stop: 03/13/17 00:31 Last Admin: 03/06/17 01:30 Dose: 100 mls/hr Ondansetron HCl (Zofran Inj) 4 mg IVP Q4 PRN PRN Reason: Nausea/Vomiting Last Admin: 03/05/17 21:20 Dose: 4 mg Pantoprazole Sodium (Protonix Ec Tab) 20 mg PO 0600 [facility] Last Admin: 03/06/17 05:58 Dose: 20 mg Prednisone (Prednisone Tab) 5 mg PO DAILY [facility] Last Admin: 03/05/17 09:30 Dose: 5 mg Sennosides (Senokot Tab) 17.2 mg PO HS [facility] Last Admin: 03/05/17 21:20 Dose: 17.2 mg Tacrolimus (Prograf Cap) 1.5 mg PO Q12 [facility] Last Admin: 03/05/17 21:19 Dose: 1.5 mg Valsartan (Diovan) 320 mg PO DAILY [facility] Last Admin: 03/05/17 09:30 Dose: 320 mg - Labs Labs: 03/06/17 06:00 03/06/17 06:00 PT 13.7 SECONDS (9.4-12.5) H 03/03/17 16:00 INR 1.20 (0.93-1.08) H 03/03/17 16:00 APTT 32.1 Seconds (25.1-36.5) 03/03/17 16:00 Assessment and Plan - Assessment and Plan (Free Text) Assessment: 51yo M with PMHx of IgA nephropathy, ESRD s/p renal transplant on peritoneal dialysis, SBO, chronic anemia, HTN, peritonitis who presented with abdominal pain. - Afebrile, VSS - Hgb 8.5 - Stool occult blood ordered but not collected yet as pt has not had a BM yet. Will order Milk of Magnesium - US: distended gallbladder with sludge, stones, no wall thickening - No surgical intervention necessary for gallbadder. Gallbladder likely distended from not eating. Patient nontender in RUQ. - Tolerating soft diet - Continue IV Antibiotics per ID (currently on Merrem and Doxycycline) - Peritoneal fluid cx negative @24 hours - GI recs: if continues to have pain, will possibly repeat EGD - Discussed plan with Dr. Sapna Russell PGY-3
[2017-03-06 10:36] VITALS: TEMP 98.4; O2SAT 96
[2017-03-06 10:53] VITALS: BP 161/95; PULSE 81
--- NOTE | 2017-03-06 11:14 | CP.PCM.PN ---
Subjective - Date & Time of Evaluation Date of Evaluation: 03/06/17 Time of Evaluation: 10:05 - Subjective Subjective: S&E in Dialysis unit, no acute overngiht events, chart reviewed. Patient diet advanced yesterday and tolerated solids, no N/V. Abdominal pain continues to improve, No BM, but urge to go. No new complaints. Objective - Vital Signs/Intake and Output Vital Signs (last 24 hours): Temp Pulse Resp BP Pulse Ox 98.4 F 81 20 161/95 H 96 03/06/17 06:00 03/06/17 10:42 03/06/17 06:00 03/06/17 10:44 03/06/17 06:00 Intake and Output: 03/06/17 03/06/17 06:59 18:59 Intake Total 480 Balance 480 - Medications Medications: Current Medications Acetaminophen (Tylenol 325mg Tab) 650 mg PO Q6H PRN PRN Reason: Fever >100.4 F Alprazolam (Xanax) 0.5 mg PO BID PRN; Protocol PRN Reason: Anxiety Amlodipine Besylate (Norvasc) 10 mg PO DAILY [facility] Last Admin: 03/06/17 10:44 Dose: 10 mg Calcitriol (Rocaltrol) 1 mcg PO DAILY [facility] Last Admin: 03/06/17 10:46 Dose: 1 mcg Calcium Carbonate (Oscal) 500 mg PO BID [facility] Last Admin: 03/06/17 10:45 Dose: 500 mg Clonidine HCl (Catapres) 0.1 mg PO BID [facility] Last Admin: 03/06/17 10:42 Dose: 0.1 mg Doxycycline Hyclate (Doryx) 100 mg PO Q12 JASSON PRN Reason: Protocol Stop: 03/13/17 10:01 Last Admin: 03/06/17 10:43 Dose: 100 mg Fluoxetine HCl (Prozac) 20 mg PO HS [facility] Last Admin: 03/05/17 21:20 Dose: 20 mg Hydromorphone HCl (Dilaudid) 0.5 mg IVP Q6H PRN PRN Reason: Pain, moderate (4-7) Last Admin: 03/05/17 21:20 Dose: 0.5 mg Meropenem 250 mg/ Sodium (Chloride) 100 mls @ 100 mls/hr IVPB Q12H JASSON PRN Reason: Protocol Stop: 03/13/17 00:31 Last Admin: 03/06/17 01:30 Dose: 100 mls/hr Ondansetron HCl (Zofran Inj) 4 mg IVP Q4 PRN PRN Reason: Nausea/Vomiting Last Admin: 03/05/17 21:20 Dose: 4 mg Pantoprazole Sodium (Protonix Ec Tab) 20 mg PO 0600 [facility] Last Admin: 03/06/17 05:58 Dose: 20 mg Prednisone (Prednisone Tab) 5 mg PO DAILY [facility] Last Admin: 03/06/17 10:45 Dose: 5 mg Sennosides (Senokot Tab) 17.2 mg PO HS [facility] Last Admin: 03/05/17 21:20 Dose: 17.2 mg Tacrolimus (Prograf Cap) 1.5 mg PO Q12 [facility] Last Admin: 03/05/17 21:19 Dose: 1.5 mg Valsartan (Diovan) 320 mg PO DAILY [facility] Last Admin: 03/06/17 10:43 Dose: 320 mg - Labs Labs: 03/06/17 06:00 03/06/17 06:00 PT 13.7 SECONDS (9.4-12.5) H 03/03/17 16:00 INR 1.20 (0.93-1.08) H 03/03/17 16:00 APTT 32.1 Seconds (25.1-36.5) 03/03/17 16:00 - Constitutional Appears: No Acute Distress - Eye Exam Eye Exam: Normal appearance. absent: Scleral icterus - ENT Exam ENT Exam: Mucous Membranes Moist - Respiratory Exam Respiratory Exam: NORMAL BREATHING PATTERN. absent: Respiratory Distress - Cardiovascular Exam Cardiovascular Exam: +S1, +S2 - GI/Abdominal Exam GI & Abdominal Exam: Soft, Tenderness (mild tenderness epigastric, no rebound or guarding), Normal Bowel Sounds. 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 Perales.
--- NOTE | 2017-03-06 11:16 | CP.PCM.PN ---
Subjective - Date & Time of Evaluation Date of Evaluation: 03/06/17 Time of Evaluation: 11:00 - Subjective Subjective: decreased abdominal pain,denieschestpain,no SOB,no nausea/vomting, no melena/ BRBPR Objective - Vital Signs/Intake and Output Vital Signs (last 24 hours): Temp Pulse Resp BP Pulse Ox 98.4 F 81 20 161/95 H 96 03/06/17 06:00 03/06/17 10:42 03/06/17 06:00 03/06/17 10:44 03/06/17 06:00 Intake and Output: 03/06/17 03/06/17 06:59 18:59 Intake Total 480 Balance 480 - Medications Medications: Current Medications Acetaminophen (Tylenol 325mg Tab) 650 mg PO Q6H PRN PRN Reason: Fever >100.4 F Alprazolam (Xanax) 0.5 mg PO BID PRN; Protocol PRN Reason: Anxiety Amlodipine Besylate (Norvasc) 10 mg PO DAILY [facility] Last Admin: 03/06/17 10:44 Dose: 10 mg Calcitriol (Rocaltrol) 1 mcg PO DAILY [facility] Last Admin: 03/06/17 10:46 Dose: 1 mcg Calcium Carbonate (Oscal) 500 mg PO BID [facility] Last Admin: 03/06/17 10:45 Dose: 500 mg Clonidine HCl (Catapres) 0.1 mg PO BID [facility] Last Admin: 03/06/17 10:42 Dose: 0.1 mg Doxycycline Hyclate (Doryx) 100 mg PO Q12 JASSON PRN Reason: Protocol Stop: 03/13/17 10:01 Last Admin: 03/06/17 10:43 Dose: 100 mg Fluoxetine HCl (Prozac) 20 mg PO HS [facility] Last Admin: 03/05/17 21:20 Dose: 20 mg Hydromorphone HCl (Dilaudid) 0.5 mg IVP Q6H PRN PRN Reason: Pain, moderate (4-7) Last Admin: 03/05/17 21:20 Dose: 0.5 mg Meropenem 250 mg/ Sodium (Chloride) 100 mls @ 100 mls/hr IVPB Q12H JASSON PRN Reason: Protocol Stop: 03/13/17 00:31 Last Admin: 03/06/17 01:30 Dose: 100 mls/hr Ondansetron HCl (Zofran Inj) 4 mg IVP Q4 PRN PRN Reason: Nausea/Vomiting Last Admin: 03/05/17 21:20 Dose: 4 mg Pantoprazole Sodium (Protonix Ec Tab) 20 mg PO 0600 [facility] Last Admin: 03/06/17 05:58 Dose: 20 mg Prednisone (Prednisone Tab) 5 mg PO DAILY [facility] Last Admin: 03/06/17 10:45 Dose: 5 mg Sennosides (Senokot Tab) 17.2 mg PO HS [facility] Last Admin: 03/05/17 21:20 Dose: 17.2 mg Tacrolimus (Prograf Cap) 1.5 mg PO Q12 [facility] Last Admin: 03/05/17 21:19 Dose: 1.5 mg Valsartan (Diovan) 320 mg PO DAILY [facility] Last Admin: 03/06/17 10:43 Dose: 320 mg - Labs Labs: 03/06/17 06:00 03/06/17 06:00 PT 13.7 SECONDS (9.4-12.5) H 03/03/17 16:00 INR 1.20 (0.93-1.08) H 03/03/17 16:00 APTT 32.1 Seconds (25.1-36.5) 03/03/17 16:00 - Respiratory Exam Respiratory Exam: Clear to Ausculation Bilateral, NORMAL BREATHING PATTERN - Cardiovascular Exam Cardiovascular Exam: REGULAR RHYTHM - GI/Abdominal Exam GI & Abdominal Exam: Soft, Tenderness, Normal Bowel Sounds - Extremities Exam Extremities Exam: Normal Inspection - Neurological Exam Neurological Exam: Alert, Awake, Normal Gait - Skin Skin Exam: Dry, Warm Assessment and Plan (1) Abdominal pain Status: Acute (2) Anemia Status: Acute (3) Renal failure Status: Acute (4) Pneumonia Status: Acute (5) Peritonitis associated with peritoneal dialysis Status: Acute - Assessment and Plan (Free Text) Plan: continue present tx.ID,renal,GI follow-up, social work for discharge planning
[2017-03-06] MEDS ORDERED: Magnesium Hydroxide Susp 30 ml UD PO ONE (16:39)
--- NOTE | 2017-03-06 17:03 | CP.PCM.PN ---
Subjective - Date & Time of Evaluation Date of Evaluation: 03/06/17 Time of Evaluation: 10:55 - Subjective Subjective: Comfortable in bed, no abdominal pain, wants to go home. No fevers overnight. Objective - Vital Signs/Intake and Output Vital Signs (last 24 hours): Temp Pulse Resp BP Pulse Ox 98.4 F 81 20 161/95 H 96 03/06/17 06:00 03/06/17 10:42 03/06/17 06:00 03/06/17 10:44 03/06/17 06:00 Intake and Output: 03/06/17 03/06/17 06:59 18:59 Intake Total 480 700 Balance 480 700 - Labs Labs: 03/06/17 06:00 03/06/17 06:00 PT 13.7 SECONDS (9.4-12.5) H 03/03/17 16:00 INR 1.20 (0.93-1.08) H 03/03/17 16:00 APTT 32.1 Seconds (25.1-36.5) 03/03/17 16:00 - Constitutional Appears: Non-toxic - Head Exam Head Exam: NORMAL INSPECTION - ENT Exam ENT Exam: Mucous Membranes Moist - Neck Exam Neck Exam: absent: Meningismus - Respiratory Exam Respiratory Exam: Decreased Breath Sounds - Cardiovascular Exam Cardiovascular Exam: +S1, +S2 - GI/Abdominal Exam GI & Abdominal Exam: Soft. absent: Tenderness Assessment and Plan - Assessment and Plan (Free Text) Plan: Assessment Consider right lower lobe HCAP, clinically improving Gallbladder sludge, less likely acute cholecystitis IgA nephropathy with chronic renal failure Plan Patient is on Day 4 of Merrem and Doxycycline - patient can be switched to PO Vantin and Flagyl and Doxycycline for another 5-7 days with outpatient follow up with PMD ( to also follow up the nuclear scan results)
--- NOTE | 2017-03-06 23:27 | CP.PCM.PN ---
Objective - Vital Signs/Intake and Output Vital Signs (last 24 hours): Temp Pulse Resp BP Pulse Ox 98.4 F 81 20 161/95 H 96 03/06/17 06:00 03/06/17 10:42 03/06/17 06:00 03/06/17 10:44 03/06/17 06:00 Intake and Output: 03/06/17 03/07/17 18:59 06:59 Intake Total 700 Balance 700 - Labs Labs: 03/06/17 06:00 03/06/17 06:00 PT 13.7 SECONDS (9.4-12.5) H 03/03/17 16:00 INR 1.20 (0.93-1.08) H 03/03/17 16:00 APTT 32.1 Seconds (25.1-36.5) 03/03/17 16:00 Assessment and Plan (1) ESRD on peritoneal dialysis Status: Acute (2) Hypertensive CKD, ESRD on dialysis Status: Acute (3) Chronic kidney disease-mineral and bone disorder Status: Acute (4) HCAP (healthcare-associated pneumonia) Status: Acute (5) Abdominal pain Status: Acute (6) Anemia Status: Acute
[2017-03-07] MEDS ORDERED: Cefpodoxime (Vantin) 200 mg Tab PO SCH (10:00)
--- NOTE | 2017-03-09 14:53 | NM ---
PROCEDURE: Nuclear Medicine Hepatobiliary Scan HISTORY: Abdominal pain COMPARISON: 03/04/2017 abdominal ultrasound. TECHNIQUE: 5.6 mCi of technetium 99m Mebrofenin was administered intravenously. Planar images of the abdomen were obtained at 5 min intervals to 60 mins. Delayed images were also obtained. FINDINGS: LIVER: Timely and homogenous uptake. COMMON BILE DUCT: identified at 45 mins. GALLBLADDER: identified at 45 mins. SMALL BOWEL: Not identified at 01:00. At this juncture, with preferential filling of the gallbladder and very little activity in the liver the study was terminated. IMPRESSION: No evidence of cystic duct obstruction/ acute cholecystitis. Nonvisualization of small bowel at 01:00. Please see report for details.
== END 2017-03-06 16:53 | disposition home or self-care (01) | DRG 391 ==
LOC: ED 15:32 → ERH 19:51 → 3RNO 03-04 00:37
PROVIDERS: ADMIT Internal Medicine; ATTEND Internal Medicine
PROC: 30233N1 Transfusion of Nonautologous Red Blood Cells into Peripheral Vein, Percutaneous Approach (ICD-10-PCS; principal; 2017-03-04)
DX: R10.9 Unspecified abdominal pain (principal); N18.6 End stage renal disease; I12.0 Hypertensive chronic kidney disease with stage 5 chronic kidney disease or end stage renal disease; N02.8 Recurrent and persistent hematuria with other morphologic changes; Z94.0 Kidney transplant status; N25.81 Secondary hyperparathyroidism of renal origin; R11.2 Nausea with vomiting, unspecified; D63.1 Anemia in chronic kidney disease; J45.909 Unspecified asthma, uncomplicated; E83.51 Hypocalcemia; F32.9 Major depressive disorder, single episode, unspecified; F41.9 Anxiety disorder, unspecified; Z99.2 Dependence on renal dialysis; Z87.11 Personal history of peptic ulcer disease; Z86.010 Personal history of colon polyps

== ENCOUNTER 2017-03-17 06:02 | Day surgery (SDC) | payer MEDICARE ==
[2017-03-13 08:08] VITALS: BMI 22.0
[2017-03-17 06:54] LABS: BASO # 0.01 K/mm3 (0.0-2.0); BASO % 0.2 % (0.0-3.0); EOS # 0.4 (0.0-0.7); EOS % 6.7 % (1.5-5.0); GRAN # 4.15 (1.4-6.5); GRAN % 69.9 % (50.0-68.0); LYMPH # 0.8 (1.2-3.4); LYMPH % 13.3 % (22.0-35.0); MEAN CELL VOLUME 91.6 fl (80.0-105.0); MEAN CORPUSCULAR HEMOGLOBIN 28.9 pg (25.0-35.0); MEAN CORPUSCULAR HGB CONC 31.5 g/dl (31.0-37.0); MEAN PLATELET VOLUME 9.4 fl (7.0-11.0); MONO # 0.6 (0.1-0.6); MONO % 9.9 % (1.0-6.0); RBC 2.39 10^6/uL (3.5-6.1); RED CELL DISTRIBUTION WIDTH 13.8 % (11.5-14.5); WHITE BLOOD COUNT 5.9 10^3/ul (4.5-11.0)
[2017-03-17] MEDS ORDERED: Bupivacaine 0.5% Inj(30mL) ONE (07:18)
[2017-03-17] MEDS ORDERED: Lidocaine 1% Inj (20ml) ONE (07:18)
[2017-03-17] MEDS ORDERED: Midazolam 2 MG/2 ML VIAL ONE ×2 (07:24→07:53)
[2017-03-17] MEDS ORDERED: Etomidate 20 mg/10ml Inj IV ONE (07:24)
[2017-03-17] MEDS ORDERED: Succinylcholine 200 mg/10 ml Inj IV ONE (07:25)
[2017-03-17 07:26] LABS: HEMOGLOBIN 6.9 g/dL (14.0-18.0)
[2017-03-17 07:31] LABS: INR 1.16 (0.93-1.08); PROTHROMBIN TIME 13.4 SECONDS (9.4-12.5)
[2017-03-17 07:32] LABS: PARTIAL THROMBOPLASTIN TIME 32.6 Seconds (25.1-36.5)
[2017-03-17 07:41] LABS: CALCIUM 8.6 mg/dL (8.4-10.5)
[2017-03-17] MEDS ORDERED: Sodium Chloride 0.9% 1,000 ML IV SCH (07:45)
[2017-03-17] MEDS ORDERED: Propofol 10 mg/ml Inj (20 ML) ONE (08:02)
[2017-03-17] MEDS ORDERED: Flumazenil 0.1 mg/ml Inj (5ml) IVP ONE (08:12)
--- NOTE | 2017-03-17 08:26 | RAD ---
HISTORY: pre-op COMPARISON: 03/03/2017 FINDINGS: LUNGS: No active pulmonary disease. PLEURA: No significant pleural effusion identified, no pneumothorax apparent. CARDIOVASCULAR: Right tunneled central venous dialysis catheter. Normal heart size. No congestive change. OSSEOUS STRUCTURES: No significant abnormalities. VISUALIZED UPPER ABDOMEN: Normal. OTHER FINDINGS: None. IMPRESSION: No active disease.
[2017-03-17] MEDS ORDERED: Bacitracin Ointment 30 GM TUBE ONE (08:46)
[2017-03-17] MEDS ORDERED: HYDROmorphone 1 mg/ml ISec IVP PRN (09:08)
[2017-03-17] MEDS ORDERED: Oxycodone/Acetaminophen 5/325 mg Tab PO PRN (09:09)
--- NOTE | 2017-03-17 09:12 | PCM.SURG1 ---
Surgeon's Initial Post Op Note - Surgeon's Notes Surgeon: Dr. Alejo Chief Pharmacist: Kira Kim PGY2 Type of Anesthesia: IV Sedation Pre-Operative Diagnosis: non-functioning peritoneal dialysis catheter Operative Findings: intact peritoneal dialysis catheter Post-Operative Diagnosis: same Operation Performed: removal of peritoneal dialysis catheter Specimen/Specimens Removed: peritoneal dialysis catheter in its entirety Estimated Blood Loss: EBL {In ML}: 5 Blood Products Given: N/A Drains Used: No Drains Post-Op Condition: Good Date of Surgery/Procedure: 03/17/17 Time of Surgery/Procedure: 08:00
[2017-03-17 09:58] VITALS: RESP 18; TEMP 97.9; O2SAT 97
[2017-03-17] MEDS ORDERED: Oxycodone/Acetaminophen 5/325 mg Tab ONE (10:01)
[2017-03-17 10:31] VITALS: BP 137/87; PULSE 77
--- NOTE | 2017-03-17 20:28 | OP ---
PROCEDURE DATE: 03/17/2017 PREOPERATIVE DIAGNOSIS: Malfunctioning peritoneal dialysis catheter. POSTOPERATIVE DIAGNOSIS: Malfunctioning peritoneal dialysis catheter. PROCEDURE PERFORMED: Removal of the tunneled peritoneal catheter and extension of the catheter. SURGEON: Ashok Alejo MD JUDICIAL ADMINISTRATIVE ASSISTANT: Dr. Kim. ANESTHESIOLOGIST: Reyna Steve MD TYPE OF ANESTHESIA: MAC and local anesthesia. ESTIMATED BLOOD LOSS: Minimal. SPECIMEN: Gross specimen of catheter. INDICATIONS: Patient is a 51-year-old male with end-stage renal disease, who was on peritoneal dialysis, subsequently developed abdominal infection and peritoneal dialysis catheter stopped functioning. At this point, patient came in for removal of catheter. Patient is currently receiving dialysis through the hemodialysis via the catheter and has a functioning fistula in the left arm. DESCRIPTION OF PROCEDURE: The patient was brought to the operating room, placed on the operating table in the supine position. The patient was connected to EKG, blood pressure and pulse oximetry monitors. The patient then underwent MAC and local anesthesia, and was prepped and draped in the usual sterile fashion. First, a standard time-out procedure took place, when everybody in the room agreed as to the patient's identity, diagnosis and procedure to be performed. Using lidocaine mixed with Marcaine, 2 areas of incision was marked, one was right above the entry of the catheter into the peritoneal cavity and the other one on the bend of the extension. The incisions were then made using the #15 blade and carefully dissected out down to the catheter. Catheter was then pulled under tension, and carefully skeletonized until the were detached from the tissue. The proximal portion of the catheter was then removed from the abdominal cavity and sent as a specimen. The distal cath and bend of the catheter were then carefully mobilized in a similar fashion, and the entire catheter was removed. The wound were irrigated and closed in layers, first using 0 Vicryl for the fascia at the entry point, 3-0 Vicryl for the deep dermal layers, and 4-0 Monocryl for skin. A sterile Dermabond dressing was applied to the wound. A 4 x 4 dressing with bacitracin was applied to the exit site of the catheter. Patient tolerated the procedure well and there were no complications. The patient was awakened and transferred to the recovery room for further observation. Ashok Alejo MD [facility] # [id number]
== END 2017-03-17 10:45 | disposition home or self-care (01) ==
LOC: SDS 06:02
PROVIDERS: ATTEND General Practice
DX: T85.71XA Infection and inflammatory reaction due to peritoneal dialysis catheter, initial encounter (principal); N18.6 End stage renal disease; I12.0 Hypertensive chronic kidney disease with stage 5 chronic kidney disease or end stage renal disease; Z99.2 Dependence on renal dialysis; Y83.8 Other surgical procedures as the cause of abnormal reaction of the patient, or of later complication, without mention of misadventure at the time of the procedure
CPT/HCPCS: 36415; 49422; 71045; 80048; 85025; 85610; 85730; 86850; 86900; 86920; 87070; 88300; J0330; J0690; J1170; J2001; J2250; J2405; J2704; J3010; J7040

== ENCOUNTER 2017-03-21 09:18 | Inpatient (IN) | payer MEDICARE, OTHER ==
[2017-03-21 09:19] VITALS: BMI 22.0
--- NOTE | 2017-03-21 09:48 | ED PDOC ---
Arrival/HPI - General Chief Complaint: Abnormal Labs Time Seen by Provider: 03/21/17 09:24 Historian: Patient, Parent - History of Present Illness Narrative History of Present Illness (Text): 03/21/17 09:35 Chris Weston is a 51 year old male, whose past medical history includes ESRD (on dialysis M, W, F), who presents to the emergency department for blood transfusion. Patient reports having weight loss due to diet pills and feeling fatigue. Additionally, mother notes patient appearing pale and it is common whenever he is sick. Patient does not make urine. Patient denies chest pain, shortness of breath, headache, fever, chills, cough, nausea, vomiting, diarrhea , changes in bowel habits, dysuria, hematuria, frequency, flank pain, or other complaints. PMD: Dr. Rivers Renal: Dr. Forbes Time/Duration: 4-6 hours Symptom Onset: Gradual Symptom Course: Unchanged Activities at Onset: Light Past Medical History - Provider Review Nursing Documentation Reviewed: Yes - Past History Past History: No Previous - Infectious Disease Hx of Infectious Diseases: None - Tetanus Immunization Tetanus Immunization: Unknown - Past Medical History Past Medical History: Non-Contributing - Cardiac Hx Pacemaker: No - Pulmonary Hx Respiratory Disorders: Yes Hx Bronchitis: Yes - Neurological Hx Paralysis: No - HEENT Hx HEENT Disorder: Yes (WEARS RX GLASSES) - Renal Hx Renal Disorder: Yes Hx Dialysis: Yes (M-W-F) Hx Renal Failure: Yes Other/Comment: llq abd peritoneal dialysis inserted 06/10/16 and removed last week. 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 - Endocrine/Metabolic Hx Endocrine Disorders: No - Hematological/Oncological Hx Blood Transfusions: Yes (LAST WEEK) Hx Blood Transfusion Reaction: No - Integumentary Hx Dermatological Disorder: No - Musculoskeletal/Rheumatological Hx Musculoskeletal Disorders: No - Gastrointestinal Hx Gastrointestinal Disorders: No Hx Gall Bladder Disease: Yes (stones) - Genitourinary/Gynecological Hx Genitourinary Disorders: Yes Other/Comment: ANURIC - Psychiatric Hx Emotional Abuse: No Hx Physical Abuse: No Hx Substance Use: No - Surgical History Hx Kidney Transplant: Yes (2003) Hx Vascular Access Device: Yes (Permacath) Other/Comment: PD placement in the LLQ and dialysis port to chest removed. R kidney transplant - Anesthesia Hx Anesthesia Reactions: No Hx Malignant Hyperthermia: No - Suicidal Assessment Feels Threatened In Home Enviroment: No Family/Social History - Physician Review Nursing Documentation Reviewed: Yes Family/Social History: Unknown Family HX Smoking Status: Never Smoked Hx Alcohol Use: No Hx Substance Use: No Allergies/Home Meds Allergies/Adverse Reactions: Allergies Iodine and Iodide Containing Produc Allergy (Verified 03/21/17 09:32) ANAPHYLAXIS lactose Allergy (Verified 03/21/17 09:32) DIARRHEA shellfish derived Allergy (Verified 03/21/17 09:32) ANAPHYLAXIS Home Medications: Home Meds Medication Instructions Recorded Confirmed Amlodipine/Valsartan [Exforge 10 1 tab PO DAILY 03/13/17 03/21/17 mg-320 mg] Pantoprazole [Protonix EC Tab] 40 mg PO 0600 03/13/17 03/21/17 Sennosides A and B [Senokot Tab] 2 tab PO HS 03/13/17 03/21/17 cloNIDine [clonidine HCl] 0.1 mg PO BID 03/13/17 03/21/17 Alprazolam [Xanax] 0.5 mg PO BID 03/17/17 03/21/17 traMADol [Ultram] 50 mg PO Q6H PRN 03/17/17 03/21/17 Review of Systems - Review of Systems Constitutional: Fatigue. absent: Fevers Eyes: Other (jaundice ) Respiratory: absent: SOB, Cough Cardiovascular: absent: Chest Pain Gastrointestinal: absent: Abdominal Pain, Vomiting Genitourinary Male: absent: Dysuria, Frequency, Hematuria Musculoskeletal: absent: Back Pain Skin: Other (pale). absent: Rash Neurological: absent: Headache Endocrine: absent: Diaphoresis Hemo/Lymphatic: absent: Adenopathy Physical Exam Vital Signs Reviewed: Yes Vital Signs Temp Pulse Resp BP Pulse Ox 03/21/17 09:29 98.2 F 74 18 140/87 100 Temperature: Afebrile Blood Pressure: Normal Pulse: Regular Respiratory Rate: Normal Appearance: Positive for: Well-Appearing, Non-Toxic, Comfortable Pain Distress: None Mental Status: Positive for: Alert and Oriented X 3 - Systems Exam Head: Present: Atraumatic, Normocephalic Pupils: Present: PERRL Extroacular Muscles: Present: EOMI Conjunctiva: Present: Icteric. No: Normal Mouth: Present: Moist Mucous Membranes Respiratory/Chest: Present: Clear to Auscultation, Good Air Exchange, Other ( shiley catheter on right side of chest. no evidence of infection). No: Respiratory Distress, Accessory Muscle Use, Wheezes, Rales, Retracting, Rhonchi Cardiovascular: Present: Regular Rate and Rhythm, Normal S1, S2. No: Murmurs Abdomen: Present: Normal Bowel Sounds. No: Tenderness, Distention, Peritoneal Signs, Rebound, Guarding Rectal: Present: Other (environmental engineering aide: [place]. Guaiac was negative no sign of blood) . No: Occult Blood Lower Extremity: Present: Normal Inspection, NORMAL PULSES, Normal ROM, Neurovascularly Intact, Capillary Refill < 2 s. No: Edema, Cyanosis, Tenderness , Swelling, Erythema, Deformity Neurological: Present: GCS=15, CN II-XII Intact, Speech Normal Skin: Present: Warm, Dry, Pale. No: Rashes, Normal Color Psychiatric: Present: Alert, Oriented x 3, Normal Insight, Normal Concentration Medical Decision Making ED Course and Treatment: 03/21/17 Impression: 51 year old male with pale skin and icteric sclera, complaining of weakness and advised for blood transfusion. Differential Diagnosis included but are not limited to: Anemia secondary to ESRD Plan: -- EKG -- Labs -- Reassess and disposition Progress Notes: 03/21/17 EKG: Ordered, reviewed, and independently interpreted the EKG. Rate : 70 BPM Rhythm : NSR Interpretation : No ST-segment elevations or depressions, no T-wave inversions, normal intervals. 03/21/17 10:38 Patient denies any GI bleeding. Dr. Forbes reported there is a history of a Gastric Ulcer. On rectal exam I visualized yellow pasty discharge from anus. Rectal environmental engineering aide was [place]. Guaiac test was negative with no detection of blood. Patient denies having sexual intercourse involving anus. Not sexually active at all. A wound culture sent. 03/21/17 11:08 Case was reviewed in detail with Dr. Presley Rivers. He agreed that patient will be place on remote telemetry. He will follow up wound culture. He also states he 's been treated recently with antibiotics to cover for any possible sexually transmitted disease. - Lab Interpretations Lab Results: 03/21/17 09:50 03/21/17 09:50 Lab Results 03/21/17 10:00: Blood Type Pending, Antibody Screen Pending, Crossmatch See Detail, BBK History Checked Patient has bt 03/21/17 09:50: Sodium 138, Potassium 3.3 L, Chloride 93 L, Carbon Dioxide 33, Anion Gap 15, BUN 19, Creatinine 5.5 H, Est GFR ( Amer) 13, Est GFR (Non- Af Amer) 11, Random Glucose 123 H, Calcium 9.1, Phosphorus 4.2, Magnesium 2.1, Total Bilirubin 0.7, AST 33, ALT 22, Alkaline Phosphatase 353 H D, Total Protein 6.9, Albumin 3.1, Globulin 3.8, Albumin/Globulin Ratio 0.8 L 03/21/17 09:50: PT 13.7 H, INR 1.19 H, APTT 32.0 03/21/17 09:50: WBC 5.8, RBC 2.03 L, Hgb 5.8 L*, Hct 18.3 L*, MCV 90.1, MCH 28.6 , MCHC 31.7, RDW 13.4, Plt Count 233, MPV 9.1, Gran % 78.2 H, Lymph % (Auto) 10.2 L, [place] % (Auto) 7.9 H, Eos % (Auto) 3.5, Baso % (Auto) 0.2, Gran # 4.53, Lymph # (Auto) 0.6 L, [place] # (Auto) 0.5, Eos # (Auto) 0.2, Baso # (Auto) 0.01 I have reviewed the lab results: Yes - EKG Interpretation Interpreted by ED Physician: Yes Type: 12 lead EKG - Scribe Statement The provider has reviewed the documentation as recorded by the Santos Reyes Provider Scribe Attestation: All medical record entries made by the Santos were at my direction and personally dictated by me. I have reviewed the chart and agree that the record accurately reflects my personal performance of the history, physical exam, medical decision making, and the department course for this patient. I have also personally directed, reviewed, and agree with the discharge instructions and disposition. Disposition/Present on Arrival - Present on Arrival Any Indicators Present on Arrival: No History of DVT/PE: No History of Uncontrolled Diabetes: No Urinary Catheter: No History of Decub. Ulcer: No History Surgical Site Infection Following: None - Disposition Have Diagnosis and Disposition been Completed?: Yes Diagnosis: Symptomatic anemia Disposition: HOSPITALIZED Disposition Time: 11:10 Patient Plan: Admission Condition: FAIR Referrals: Harsha Rivers JD, MD [Primary Care Provider] - Follow up with primary Forms: [employer] (T/A) ([place])
[2017-03-21 10:08] LABS: BASO # 0.01 K/mm3 (0.0-2.0); BASO % 0.2 % (0.0-3.0); EOS # 0.2 (0.0-0.7); EOS % 3.5 % (1.5-5.0); GRAN # 4.53 (1.4-6.5); GRAN % 78.2 % (50.0-68.0); LYMPH # 0.6 (1.2-3.4); LYMPH % 10.2 % (22.0-35.0); MEAN CELL VOLUME 90.1 fl (80.0-105.0); MEAN CORPUSCULAR HEMOGLOBIN 28.6 pg (25.0-35.0); MEAN CORPUSCULAR HGB CONC 31.7 g/dl (31.0-37.0); MEAN PLATELET VOLUME 9.1 fl (7.0-11.0); MONO # 0.5 (0.1-0.6); MONO % 7.9 % (1.0-6.0); RBC 2.03 10^6/uL (3.5-6.1); RED CELL DISTRIBUTION WIDTH 13.4 % (11.5-14.5); WHITE BLOOD COUNT 5.8 10^3/ul (4.5-11.0)
[2017-03-21 10:14] LABS: HEMOGLOBIN 5.8 g/dL (14.0-18.0)
[2017-03-21 10:22] LABS: INR 1.19 (0.93-1.08); PROTHROMBIN TIME 13.7 SECONDS (9.4-12.5)
[2017-03-21 10:39] LABS: ALB/GLOB RATIO 0.8 (1.1-1.8); ALBUMIN 3.1 g/dL (3.0-4.8); CALCIUM 9.1 mg/dL (8.4-10.5); MAGNESIUM 2.1 mg/dL (1.7-2.2)
--- NOTE | 2017-03-21 16:36 | CARD ---
APPROVED REPORT EKG Measurement Heart [id number] <Conclusion> Normal sinus rhythm Possible Left atrial enlargement Borderline ECG
[2017-03-21] MEDS: Pantoprazole 40 mg EC Tab PO SCH (17:39)
--- NOTE | 2017-03-21 22:24 | CON ---
DATE: NEPHROLOGY CONSULTATION HISTORY OF PRESENT ILLNESS: A 51-year-old male with past medical history of IgA nephropathy, ESRD, on hemodialysis, status post living-related kidney donation in 2003 with transplant having failed in 2014, sent to us by ED today due to profound anemia on outpatient labs. We are consulting for ESRD care. The patient has a history of duodenal ulcers with endoscopy done in January 2017, which showed 2 nonbleeding superficial duodenal ulcers. The patient was admitted last month for symptomatic anemia and was transfused 2 units PRBC. The patient at that time had CT abdomen done, which was unremarkable for any masses or sign of bleeding. The patient otherwise has been losing a significant amount of weight, having lost 12 pounds just over the last 2 weeks. Appetite has been well per patient, but he has early satiety. The patient otherwise denies any fevers or night sweats. Denies any change in color of stool. Denies any blood in stool. Hemoglobin on outpatient labs yesterday was 5.6, decreased from 6.9 done just 3 days prior. PAST MEDICAL HISTORY: As above. The patient with his third episode of peritonitis since starting PD in July 2016. The patient just had peritoneal catheter removed earlier this week due to repeated PD catheter malfunction, thought to be due to recurrent migration of catheter. The patient is also status post new left forearm AV fistula that was created in the beginning of February. SOCIAL HISTORY: Denies smoking. FAMILY HISTORY: Mother with rheumatoid fever. REVIEW OF SYSTEMS: CONSTITUTIONAL: Weight loss per HPI. HEENT: No sinus pain, no runny nose, no sore throat. No change in vision. RESPIRATORY: No cough. No shortness of breath. CARDIOVASCULAR: No swelling in legs. No chest pain or palpitations. GASTROINTESTINAL: Denies any abdominal pain. No nausea, vomiting or diarrhea. Has been having issues with constipation. GENITOURINARY: Anuric, no other urethral discharge. SKIN: Denies any pruritus or rashes. PSYCHIATRIC: Has history of depression which has been improved. NEUROLOGIC: Denies any dizziness. PHYSICAL EXAMINATION: VITAL SIGNS: Today, blood pressure 140/87, heart rate 74, respirations 18, temperature 98.2, O2 sat 100% on room air. General: No distress. Lying comfortably in bed. HEENT: Moist mucous membranes. Nonicteric. No cervical lymphadenopathy. RESPIRATORY: Lungs clear to auscultation bilaterally. No rales, no rhonchi, no wheezes. CARDIOVASCULAR: Heart sounds S1, S2 normal. No murmurs, no gallops, no rubs. GASTROINTESTINAL: Abdomen soft, mildly distended, nontender. GENITOURINARY: No overt bladder distention. EXTREMITIES: No leg edema. SKIN: Warm. No cyanosis. NEUROLOGIC: No tremor of outstretched hands. PSYCHIATRIC: Normal mood, normal affect. LABORATORY DATA: CBC: WBC 5.8, hemoglobin 5.8, hematocrit 18.3, platelets of 233. Chemistry panel still pending. ASSESSMENT AND PLAN: 1. Endstage renal disease, on hemodialysis. The patient with last hemodialysis session yesterday afternoon. Do not anticipate him needing dialysis until Thursday as per his routine. We will need to monitor respiratory status while the patient gets PRBC transfusion as he is anuric. 2. Symptomatic anemia. Patient with recurrent drop in hemoglobin. No overt source of bleeding. The patient has been on high dose of Aranesp as an outpatient 100 mcg weekly, but continues to drop in hemoglobin. The patient has history of duodenal ulcers, but also is giving symptoms of weight loss, which is concerning for an underlying possible malignancy. Has had extensive workup for transplant (with colonoscopy and CAT scans), not showing any sign of malignancy. Recommend to transfuse 2 units PRBC. We will follow up GI evaluation. The patient has ESRD and therefore has higher risk of having arteriovenous malformation. 3. Chronic kidney disease, mineral bone disorder. Patient has been having hypocalcemia lately, is on IV formulation of calcitriol, on hemodialysis. We will monitor calcium levels, is on Auryxia 210 mg 3 tablets with each meal. Should continue the same while here (patient has his own supply with him). 4. Immunosuppression. The patient has been on tacrolimus 1.5 mg b.i.d. and prednisone 5 mg daily for his previous renal transplant, which is still present. We will continue the same for now. 5. Hypertension on endstage renal disease. Blood pressure is controlled currently. The patient at home is on clonidine 0.1 mg b.i.d., valsartan 320 mg daily and amlodipine 10 mg daily. Continue the same while here. 6. Peritonitis. The patient is receiving vancomycin 500 mg with each dialysis treatment for peritonitis with gram-positive bacilli. The patient will continue the same regimen for one more week. Thank you for this referral. We will be following closely. Kris Forbes MD
[2017-03-21] MEDS ORDERED: Influenza Vaccine 60 mcg/0.5 mL SYR (4YR UP) IM ONE (22:52)
[2017-03-21] MEDS ORDERED: Pneumococcal 23-Valent Vaccine IM ONE (22:52)
--- NOTE | 2017-03-22 00:53 | HP ---
HISTORY OF PRESENT ILLNESS: The patient is a 51-year-old male with a history of end-stage renal disease, on hemodialysis, who presents with severe anemia. The patient complains of fatigue. There is no melena, no bright red blood per rectum. Patient does have a history of peptic ulcer disease. He reports some occasional vomiting of coffee-ground material over the past 1 to 2 days. There is no fever, no chills, no chest pain, no shortness of breath. PAST MEDICAL HISTORY: Includes end-stage renal disease secondary to IgA nephropathy with end-stage kidney disease, on hemodialysis. He was previously on peritoneal dialysis which was complicated by recurrent peritonitis and was admitted to [facility], approximately 3 months ago. His end-stage kidney disease is from IgA nephropathy and is status post renal transplant approximately 10 years ago with rejection approximately 2 years ago. His medical history also includes hypertension and asthma. PAST SURGICAL HISTORY: As above. ALLERGIES: THE PATIENT HAS ALLERGIES TO IODINE, SHELLFISH, AND IODINATED CONTRAST. CURRENT MEDICATIONS: Include Prograf 1.5 mg twice daily, clonidine 0.1 mg twice daily, amlodipine 10 mg daily, calcium carbonate 500 mg twice daily, prednisone 5 mg daily, Prozac 20 mg daily, Rocaltrol 1 mcg daily. REVIEW OF SYSTEMS: Essentially as above. There is no jaundice, no rash, no edema. The patient is status post AV fistula placement by Dr. Alejo in the left arm approximately 2 months ago. SOCIAL HISTORY: The patient has no history of alcohol or tobacco use. He is independent with ADLs and IADLs. PHYSICAL EXAMINATION: GENERAL: The patient is a well-developed, mildly cachectic male, in no acute distress. VITAL SIGNS: Blood pressure 132/81, temperature 98.3, pulse 81, respiratory rate 20. HEENT: Head is normocephalic, atraumatic. Pupils equal, round, reactive to light. Extraocular movements intact. NECK: Supple. No thyromegaly. No carotid bruit. No adenopathy. LUNGS: Clear. HEART: Regular rate and rhythm. No murmurs, rubs, or gallops. ABDOMEN: Soft and nontender. Bowel sounds are normoactive. There is a dialysis catheter present in the right chest wall. EXTREMITIES: Without cyanosis, clubbing, or edema. There is an AV fistula in the left arm. NEUROLOGIC: The patient is awake and oriented x3 without focal, sensory, or motor deficits. SKIN: Warm and dry. LABORATORY DATA: WBC is 5.8, hemoglobin 5.8, and hematocrit 18.3. Sodium 138, potassium 3.3, chloride 93, CO2 of 33, BUN 19, creatinine 5.5, glucose 123, alkaline phosphatase slightly elevated at 353. IMPRESSION: 1. Anemia, rule out gastrointestinal bleed. 2. End-stage kidney disease, history of IgA nephropathy status post transplant with rejection, currently on hemodialysis. 3. Hypertension. 4. Asthma. PLAN: The patient will be admitted to remote telemetry. He will receive two units of packed red blood cells. We will obtain renal consultation with Dr. Forbes as well as GI consult with Dr. Perales. Started on Protonix. Monitor hemoglobin and hematocrit. Harsha Rivers JD/
[2017-03-22] MEDS: Pantoprazole 40 mg EC Tab PO SCH ×2 (05:24→16:35)
[2017-03-22 07:36] LABS: BASO # 0.01 K/mm3 (0.0-2.0); BASO % 0.2 % (0.0-3.0); EOS # 0.1 (0.0-0.7); EOS % 0.8 % (1.5-5.0); GRAN # 5.21 (1.4-6.5); GRAN % 83.6 % (50.0-68.0); LYMPH # 0.5 (1.2-3.4); LYMPH % 7.5 % (22.0-35.0); MEAN CELL VOLUME 88.8 fl (80.0-105.0); MEAN CORPUSCULAR HEMOGLOBIN 29.1 pg (25.0-35.0); MEAN CORPUSCULAR HGB CONC 32.7 g/dl (31.0-37.0); MEAN PLATELET VOLUME 9.6 fl (7.0-11.0); MONO # 0.5 (0.1-0.6); MONO % 7.9 % (1.0-6.0); RBC 2.51 10^6/uL (3.5-6.1); RED CELL DISTRIBUTION WIDTH 13.9 % (11.5-14.5); WHITE BLOOD COUNT 6.2 10^3/ul (4.5-11.0)
[2017-03-22 07:42] LABS: HEMOGLOBIN 7.3 g/dL (14.0-18.0)
[2017-03-22 08:06] LABS: ALB/GLOB RATIO 0.8 (1.1-1.8); ALBUMIN 2.7 g/dL (3.0-4.8)
--- NOTE | 2017-03-22 11:54 | CP.PCM.PN ---
Subjective - Date & Time of Evaluation Date of Evaluation: 03/22/17 Time of Evaluation: 11:30 - Subjective Subjective: resting comfortably, NAD Objective - Vital Signs/Intake and Output Vital Signs (last 24 hours): Temp Pulse Resp BP Pulse Ox 98.3 F 72 18 136/88 94 L 03/22/17 06:00 03/22/17 10:20 03/22/17 06:00 03/22/17 10:21 03/22/17 06:00 Intake and Output: 03/22/17 03/22/17 06:59 18:59 Intake Total 665 Output Total 0 Balance 665 - Medications Medications: Current Medications Alprazolam (Xanax) 0.5 mg PO BID [facility] PRN Reason: Protocol Last Admin: 03/22/17 10:21 Dose: 0.5 mg Amlodipine Besylate (Norvasc) 10 mg PO DAILY [facility] Last Admin: 03/22/17 10:21 Dose: 10 mg Clonidine HCl (Catapres) 0.1 mg PO BID [facility] Last Admin: 03/22/17 10:20 Dose: 0.1 mg Fluoxetine HCl (Prozac) 20 mg PO DAILY [facility] Last Admin: 03/22/17 10:20 Dose: 20 mg Ondansetron HCl (Zofran Inj) 4 mg IVP Q6 PRN PRN Reason: Nausea/Vomiting Last Admin: 03/21/17 22:31 Dose: 4 mg Pantoprazole Sodium (Protonix Ec Tab) 40 mg PO 0600,1600 [facility] Last Admin: 03/22/17 05:24 Dose: 40 mg Prednisone (Prednisone Tab) 5 mg PO BRK [facility] Last Admin: 03/22/17 08:16 Dose: 5 mg Tacrolimus (Prograf Cap) 1.5 mg PO Q12 [facility] Last Admin: 03/22/17 10:20 Dose: 1.5 mg - Labs Labs: 03/22/17 07:00 03/22/17 07:00 PT 13.7 SECONDS (9.4-12.5) H 03/21/17 09:50 INR 1.19 (0.93-1.08) H 03/21/17 09:50 APTT 32.0 Seconds (25.1-36.5) 03/21/17 09:50 - Respiratory Exam Respiratory Exam: Clear to Ausculation Bilateral, NORMAL BREATHING PATTERN - Cardiovascular Exam Cardiovascular Exam: REGULAR RHYTHM - GI/Abdominal Exam GI & Abdominal Exam: Soft, Normal Bowel Sounds - Extremities Exam Extremities Exam: Normal Inspection - Neurological Exam Neurological Exam: Alert, Awake - Skin Skin Exam: Dry, Warm Assessment and Plan (1) End-stage kidney disease Status: Acute (2) Anemia Status: Acute - Assessment and Plan (Free Text) Plan: monitor Hb/Hct, renal and GI follow-up
--- NOTE | 2017-03-22 21:26 | CP.PCM.PN ---
Objective - Vital Signs/Intake and Output Vital Signs (last 24 hours): Temp Pulse Resp BP Pulse Ox 98.2 F 75 20 133/90 96 03/22/17 18:00 03/22/17 18:11 03/22/17 18:00 03/22/17 18:11 03/22/17 18:00 - Medications Medications: Current Medications Alprazolam (Xanax) 0.5 mg PO BID [facility] PRN Reason: Protocol Last Admin: 03/22/17 17:04 Dose: Not Given Amlodipine Besylate (Norvasc) 10 mg PO DAILY [facility] Last Admin: 03/22/17 10:21 Dose: 10 mg Clonidine HCl (Catapres) 0.1 mg PO BID [facility] Last Admin: 03/22/17 18:11 Dose: 0.1 mg Fluoxetine HCl (Prozac) 20 mg PO DAILY [facility] Last Admin: 03/22/17 10:20 Dose: 20 mg Ondansetron HCl (Zofran Inj) 4 mg IVP Q6 PRN PRN Reason: Nausea/Vomiting Last Admin: 03/21/17 22:31 Dose: 4 mg Pantoprazole Sodium (Protonix Ec Tab) 40 mg PO 0600,1600 [facility] Last Admin: 03/22/17 16:35 Dose: 40 mg Prednisone (Prednisone Tab) 5 mg PO BRK [facility] Last Admin: 03/22/17 08:16 Dose: 5 mg Tacrolimus (Prograf Cap) 1.5 mg PO Q12 [facility] Last Admin: 03/22/17 10:20 Dose: 1.5 mg - Labs Labs: 03/22/17 07:00 03/22/17 07:00 PT 13.7 SECONDS (9.4-12.5) H 03/21/17 09:50 INR 1.19 (0.93-1.08) H 03/21/17 09:50 APTT 32.0 Seconds (25.1-36.5) 03/21/17 09:50
[2017-03-23] MEDS: Pantoprazole 40 mg EC Tab PO SCH ×2 (05:20→18:58)
[2017-03-23 05:28] LABS: BASO # 0.01 K/mm3 (0.0-2.0); BASO % 0.2 % (0.0-3.0); EOS # 0.1 (0.0-0.7); GRAN # 4.48 (1.4-6.5); GRAN % 73.9 % (50.0-68.0); LYMPH # 0.9 (1.2-3.4); LYMPH % 15.5 % (22.0-35.0); MEAN CELL VOLUME 87.7 fl (80.0-105.0); MEAN CORPUSCULAR HEMOGLOBIN 28.7 pg (25.0-35.0); MEAN CORPUSCULAR HGB CONC 32.8 g/dl (31.0-37.0); MEAN PLATELET VOLUME 9.2 fl (7.0-11.0); MONO # 0.5 (0.1-0.6); MONO % 8.4 % (1.0-6.0); RBC 2.61 10^6/uL (3.5-6.1); RED CELL DISTRIBUTION WIDTH 13.6 % (11.5-14.5); WHITE BLOOD COUNT 6.1 10^3/ul (4.5-11.0)
[2017-03-23 05:41] LABS: HEMOGLOBIN 7.5 g/dL (14.0-18.0)
[2017-03-23 05:46] LABS: ALB/GLOB RATIO 0.8 (1.1-1.8); ALBUMIN 2.6 g/dL (3.0-4.8); CALCIUM 8.9 mg/dL (8.4-10.5)
--- NOTE | 2017-03-23 08:38 | CON ---
DATE: 03/21/2017 This patient was seen and evaluated earlier in the emergency room. REASON FOR CONSULTATION: Severe anemia. HISTORY OF PRESENT ILLNESS: This 51-year-old patient with past medical history of end-stage renal disease. He was on peritoneal dialysis, switched over to hemodialysis now because of the peritonitis, history of end-stage renal disease secondary to IgA nephropathy, status post had a living-related donor transplant in 2003 and it failed. The patient was admitted with abdominal pain and anemia, had an endoscopy done and colonoscopy done. The endoscopy done on 01/16/2017 showed multiple duodenal ulcers and 2 cm hiatus hernia. The patient was taking at home pantoprazole 40 mg daily. His hemoglobin on 03/06/2017 was 8.5, then 03/17/2017 it was 6.9 and admitted for further evaluation of anemia and for the transfusion. He just received 1 unit of transfusion today. Denies any melena, vomiting blood. His abdominal discomfort has also improved. The patient had a colonoscopy done in June 2016. He was found to have only diminutive polyp in the ascending colon and removed. PAST MEDICAL HISTORY: Other past medical history is significant as above, history of hypertension, anxiety, depression. ALLERGIES: HE IS ALLERGIC TO IODINE AND LACTOSE. FAMILY HISTORY: Noncontributory. SOCIAL HISTORY: Denies smoking, alcohol use. REVIEW OF SYSTEMS: Positive as above. Other systems reviewed negative. PHYSICAL EXAMINATION: GENERAL: The patient is lying on the bed, not in acute distress. VITAL SIGNS: Temperature is 98.4, pulse 71, blood pressure 137/81, respirations 17. HEENT: Atraumatic, anicteric. NECK: Supple. HEART: S1 and S2 heard. LUNGS: Bilateral air entry present. ABDOMEN: Softly distended. EXTREMITIES: No cyanosis, no clubbing. NEUROLOGIC: Alert and oriented. Moves all the extremities. LABORATORY DATA: Hemoglobin 5.8, hematocrit 18.3, WBC 5.8 and platelets 233. Chemistries: BUN 19, creatinine 5.5, alkaline phosphatase 353, it was 83 before. The patient had an ultrasound done on 03/04/2017, noticed to have sludge in the gallbladder and stones. CBD normal. IMPRESSION: This is a 51-year-old patient with end-stage renal disease secondary to he IgA nephropathy, failed kidney transplant before, was on peritoneal dialysis, now presently in view of this peritonitis, the patient is now on hemodialysis, has history of duodenal ulcers, anemia, last endoscopy done was on 01/16/2017, found to have multiple duodenal ulcers. The patient has been on Protonix 40 mg, admitted with severe anemia, hemoglobin of 5.8. No obvious melena or bright red blood per rectum. The patient did have a colonoscopy in 2017, found to have small polyp and removed. The etiology for the severe anemia is unclear. It is probably multifactorial in etiology and ulcer disease and arteriovenous malformation and chronic neoplasia also should be considered, especially in the case that the patient is being on immunosuppressive therapy on Prograf. His other comorbidities include end-stage renal disease, on hemodialysis, hypertension, asthma. RECOMMENDATIONS: We would recommend: 1. Followup of the hemoglobin and hematocrit. 2. Protonix 40 mg IV daily, especially in view of renal failure. 3. The patient would benefit from repeat endoscopy. We will also consider colonoscopy in view of the significant anemia. Last colonoscopy is more than a year ago and the patient is especially on immunosuppressive therapy, and history of polyps. The patient will be scheduled for the EGD and colonoscopy on Thursday after further optimization of the patient. We will start the patient on clear liquid diet. Thank you very much for allowing us to participate in the care of the patient. Emre Perales MD
--- NOTE | 2017-03-23 09:07 | PN ---
DATE: 03/22/2017 SUBJECTIVE: This patient was seen and evaluated earlier today. The patient is on liquid diet, wants regular food. No complaints of any abdominal pain. No bleeding per rectum. No melena. No vomiting blood. No complaints. Abdominal pain has significant improvement. PHYSICAL EXAMINATION: VITAL SIGNS: Temperature is 98.2, pulse 75, blood pressure 133/90. HEENT: Atraumatic, anicteric. NECK: Supple. HEART: S1 and S2 heard. LUNGS: Bilateral air entry present. ABDOMEN: Soft. EXTREMITIES: No cyanosis. No clubbing. LABORATORY DATA: Hemoglobin 7.3, hematocrit 22.3, WBC 6.2, platelets 213, BUN 28, creatinine 7.5, alkaline phosphatase 299, total bilirubin 1.1. IMPRESSION: This 51-year-old patient end-stage renal disease on hemodialysis, failed renal transplant before, history of the renal failure secondary to the IgA nephropathy. History of recurrent peritonitis, peritoneal dialysis catheter is removed. The patient is presently on hemodialysis. The patient is still on Prograf. Had an upper GI endoscopy done on 01/16 was found to have a multiple duodenal ulcer and hiatal hernia. The patient did have a colonoscopy done more than year ago and was found to have only dimunitive polyp in the ascending colon, otherwise diverticulosis and hemorrhoids. RECOMMENDATIONS: 1. Follow up of the hemoglobin and hematocrit. 2. 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 3. We will consider upper GI endoscopy and colonoscopy on Thursday. Recommend followup of the hemoglobin and hematocrit. Thank you very much for allowing us to participate in the care of the patient. Emre Perales MD
[2017-03-23] MEDS ORDERED: Vancomycin 500 mg Inj IVPB SCH (10:49)
--- NOTE | 2017-03-23 10:52 | CP.PCM.PN ---
Subjective - Date & Time of Evaluation Date of Evaluation: 03/23/17 Time of Evaluation: 09:00 - Subjective Subjective: no acute distress, no bleeding Objective - Vital Signs/Intake and Output Vital Signs (last 24 hours): Temp Pulse Resp BP Pulse Ox 97.9 F 84 16 156/97 H 93 L 03/23/17 09:07 03/23/17 09:57 03/23/17 09:07 03/23/17 09:58 03/23/17 06:00 Intake and Output: 03/23/17 03/23/17 06:59 18:59 Intake Total 180 325 Balance 180 325 - Medications Medications: Current Medications Alprazolam (Xanax) 0.5 mg PO BID [facility] PRN Reason: Protocol Last Admin: 03/23/17 09:56 Dose: 0.5 mg Amlodipine Besylate (Norvasc) 10 mg PO DAILY [facility] Last Admin: 03/23/17 09:58 Dose: 10 mg Clonidine HCl (Catapres) 0.1 mg PO BID [facility] Last Admin: 03/23/17 09:57 Dose: 0.1 mg Fluoxetine HCl (Prozac) 20 mg PO DAILY [facility] Last Admin: 03/23/17 10:45 Dose: Not Given Ondansetron HCl (Zofran Inj) 4 mg IVP Q6 PRN PRN Reason: Nausea/Vomiting Last Admin: 03/21/17 22:31 Dose: 4 mg Pantoprazole Sodium (Protonix Ec Tab) 40 mg PO 0600,1600 [facility] Last Admin: 03/23/17 05:20 Dose: 40 mg Prednisone (Prednisone Tab) 5 mg PO BRK [facility] Last Admin: 03/23/17 09:55 Dose: 5 mg Tacrolimus (Prograf Cap) 1.5 mg PO Q12 [facility] Last Admin: 03/23/17 09:56 Dose: 1.5 mg - Labs Labs: 03/23/17 05:15 03/23/17 05:15 PT 13.7 SECONDS (9.4-12.5) H 03/21/17 09:50 INR 1.19 (0.93-1.08) H 03/21/17 09:50 APTT 32.0 Seconds (25.1-36.5) 03/21/17 09:50 - Respiratory Exam Respiratory Exam: Clear to Ausculation Bilateral, NORMAL BREATHING PATTERN - Cardiovascular Exam Cardiovascular Exam: REGULAR RHYTHM - GI/Abdominal Exam GI & Abdominal Exam: Soft, Normal Bowel Sounds - Extremities Exam Extremities Exam: Normal Inspection - Neurological Exam Neurological Exam: Alert, Awake - Skin Skin Exam: Dry, Warm Assessment and Plan (1) End-stage kidney disease Status: Acute (2) Anemia Status: Acute - Assessment and Plan (Free Text) Plan: monitor Hb/Hct, renal and GI follow-up, for EGD/colonoscopy in am
[2017-03-23] MEDS ORDERED: Vancomycin 750mg 750 MG/250 ML BAG IVPB SCH (11:00)
[2017-03-23] MEDS ORDERED: Peg-Electrolyte Oral Soln 4L (Golytely) PO ONE (12:31)
--- NOTE | 2017-03-23 19:03 | CP.PCM.PN ---
Subjective - Date & Time of Evaluation Date of Evaluation: 03/23/17 Time of Evaluation: 11:00 - Subjective Subjective: Reports feeling tired; tolerating diet; s/p HD today, tolerated well; Objective - Vital Signs/Intake and Output Vital Signs (last 24 hours): Temp Pulse Resp BP Pulse Ox 98.1 F 76 20 147/80 98 03/23/17 16:00 03/23/17 16:00 03/23/17 16:00 03/23/17 16:00 03/23/17 16:00 Intake and Output: 03/23/17 03/24/17 18:59 06:59 Intake Total 525 Balance 525 - Medications Medications: Current Medications Alprazolam (Xanax) 0.5 mg PO BID [facility] PRN Reason: Protocol Last Admin: 03/23/17 09:56 Dose: 0.5 mg Amlodipine Besylate (Norvasc) 10 mg PO DAILY [facility] Last Admin: 03/23/17 09:58 Dose: 10 mg Clonidine HCl (Catapres) 0.1 mg PO BID [facility] Last Admin: 03/23/17 09:57 Dose: 0.1 mg Fluoxetine HCl (Prozac) 20 mg PO DAILY [facility] Last Admin: 03/23/17 10:45 Dose: Not Given Vancomycin HCl (Vancomycin 750 Mg In Ns) 750 mg in 250 mls @ 167 mls/hr IVPB MWF [facility] Stop: 04/03/17 12:00 Last Admin: 03/23/17 12:07 Dose: 167 mls/hr Ondansetron HCl (Zofran Inj) 4 mg IVP Q6 PRN PRN Reason: Nausea/Vomiting Last Admin: 03/23/17 16:29 Dose: 4 mg Pantoprazole Sodium (Protonix Ec Tab) 40 mg PO 0600,1600 [facility] Last Admin: 03/23/17 05:20 Dose: 40 mg Prednisone (Prednisone Tab) 5 mg PO BRK [facility] Last Admin: 03/23/17 09:55 Dose: 5 mg Tacrolimus (Prograf Cap) 1.5 mg PO Q12 [facility] Last Admin: 03/23/17 09:56 Dose: 1.5 mg - Labs Labs: 03/23/17 05:15 03/23/17 05:15 PT 13.7 SECONDS (9.4-12.5) H 03/21/17 09:50 INR 1.19 (0.93-1.08) H 03/21/17 09:50 APTT 32.0 Seconds (25.1-36.5) 03/21/17 09:50 - Constitutional Appears: Non-toxic, No Acute Distress - Eye Exam Eye Exam: Normal appearance - ENT Exam ENT Exam: Mucous Membranes Moist - Respiratory Exam Respiratory Exam: Clear to Ausculation Bilateral Additional comments: mildly decreased breath sounds on L - Cardiovascular Exam Cardiovascular Exam: RRR, +S1, +S2 - GI/Abdominal Exam GI & Abdominal Exam: Soft. absent: Distended, Tenderness - Extremities Exam Additional comments: no leg edema; - Neurological Exam Neurological Exam: Alert, Awake - Psychiatric Exam Psychiatric exam: Normal Affect, Normal Mood - Skin Skin Exam: Warm. absent: Cyanosis Assessment and Plan (1) ESRD on hemodialysis Assessment & Plan: Stable electrolyte and volume status; dialyzed today per routine with just over 1L net UF; next HD on Thu per routine; Status: Chronic (2) Immunosuppression Assessment & Plan: Discussed with transplant specialist; will need to get further info regarding previous graft failure; logic behind keeping patient on small dose of immunosuppression may have been to avoid formation of antibodies in a patient who is re-listed for renal transplant; however, in light of weight loss and concern for malignancy, we will taper down tacrolimus slowly with eventual goal of 0.5 mg bid within next few weeks; will subsequently taper prednisone as well; Status: Chronic (3) Anemia Assessment & Plan: Transfused 1 more u prbc today on HD; will continue with aranesp, increasing to 125 mcg weekly; Status: Acute (4) Chronic kidney disease-mineral and bone disorder Status: Acute (5) Hypertensive CKD, ESRD on dialysis Assessment & Plan: BP stable; currently on clonidine 0.1 mg bid and amlodipine 10 mg daily, continue same; will continue to hold valsartan for now; Status: Acute (6) Peritonitis associated with peritoneal dialysis Assessment & Plan: Staph capitus and bacillus species (on outpatient PD fluid culture); PD catheter subsequently removed last week; started on vanco 500 mg with each HD, increasing dose to 750 mg due to low vanco level; last dose set for 04/01; Status: Acute
--- NOTE | 2017-03-23 22:31 | PN ---
DATE: 03/23/2017 SUBJECTIVE: This patient was seen and evaluated earlier today. Patient did have dialysis and also had a unit of transfusion during dialysis. PHYSICAL EXAMINATION: VITAL SIGNS: Temperature is 97.9, pulse 84, blood pressure is 159/97. HEENT: Atraumatic, anicteric. NECK: Supple. HEART: S1 and S2 heard. LUNGS: Bilateral air entry present. ABDOMEN: Soft. EXTREMITIES: No cyanosis. No clubbing. LABORATORY DATA: Hemoglobin 7.5; patient did receive a unit of blood transfusion during dialysis after that. IMPRESSION AND PLAN: 1. This is a 51-year-old patient with end-stage renal disease secondary to the IgA nephropathy, failed renal transplant, patient is still on Prograf. 2. History of recurrent peritonitis, peritoneal dialysis catheter removed. Patient had significant drop in blood count, history of duodenal ulcer. Patient did have a colonoscopy more than a year ago . In view of the significant anemia, patient was admitted with a hemoglobin of 5.8. It is reasonable to consider upper gastrointestinal endoscopy and also colonoscopy to further evaluate. Patient has been started on GoLYTELY preparation. We will continue to closely follow up with his care. Patient is scheduled for an esophagogastroduodenoscopy and colonoscopy tomorrow. Thank you very much for allowing me to participate in the care of the patient. Emre Perales MD [facility]
[2017-03-24] MEDS: Pantoprazole 40 mg EC Tab PO SCH ×2 (05:32→16:38)
[2017-03-24 09:06] LABS: BASO # 0.01 K/mm3 (0.0-2.0); BASO % 0.2 % (0.0-3.0); EOS # 0.1 (0.0-0.7); EOS % 2.6 % (1.5-5.0); GRAN # 3.37 (1.4-6.5); GRAN % 72.7 % (50.0-68.0); HEMOGLOBIN 8.5 g/dL (14.0-18.0); LYMPH # 0.7 (1.2-3.4); LYMPH % 14.4 % (22.0-35.0); MEAN CELL VOLUME 89.3 fl (80.0-105.0); MEAN CORPUSCULAR HEMOGLOBIN 29.3 pg (25.0-35.0); MEAN CORPUSCULAR HGB CONC 32.8 g/dl (31.0-37.0); MEAN PLATELET VOLUME 9.5 fl (7.0-11.0); MONO # 0.5 (0.1-0.6); MONO % 10.1 % (1.0-6.0); RBC 2.9 10^6/uL (3.5-6.1); RED CELL DISTRIBUTION WIDTH 13.6 % (11.5-14.5); WHITE BLOOD COUNT 4.6 10^3/ul (4.5-11.0)
[2017-03-24 09:47] LABS: ALB/GLOB RATIO 0.8 (1.1-1.8); ALBUMIN 2.7 g/dL (3.0-4.8); MAGNESIUM 2.1 mg/dL (1.7-2.2)
--- NOTE | 2017-03-24 13:57 | CP.PCM.PN ---
Subjective - Date & Time of Evaluation Date of Evaluation: 03/24/17 Time of Evaluation: 09:00 - Subjective Subjective: no acute distress, no melena, no BRBPR Objective - Vital Signs/Intake and Output Vital Signs (last 24 hours): Temp Pulse Resp BP Pulse Ox 98.1 F 68 20 143/94 H 97 03/24/17 01:18 03/24/17 01:18 03/24/17 01:18 03/24/17 10:15 03/24/17 01:18 Intake and Output: 03/24/17 03/24/17 06:59 18:59 Intake Total 1080 Balance 1080 - Medications Medications: Current Medications Alprazolam (Xanax) 0.5 mg PO BID [facility] PRN Reason: Protocol Last Admin: 03/24/17 10:04 Dose: Not Given Amlodipine Besylate (Norvasc) 10 mg PO DAILY [facility] Last Admin: 03/24/17 10:15 Dose: 10 mg Clonidine HCl (Catapres) 0.1 mg PO BID [facility] Last Admin: 03/24/17 10:19 Dose: 0.1 mg Fluoxetine HCl (Prozac) 20 mg PO 2100 [facility] Last Admin: 03/23/17 21:28 Dose: 20 mg Vancomycin HCl (Vancomycin 750 Mg In Ns) 750 mg in 250 mls @ 167 mls/hr IVPB MWF [facility] Stop: 04/03/17 12:00 Last Admin: 03/23/17 12:07 Dose: 167 mls/hr Ondansetron HCl (Zofran Inj) 4 mg IVP Q6 PRN PRN Reason: Nausea/Vomiting Last Admin: 03/23/17 16:29 Dose: 4 mg Pantoprazole Sodium (Protonix Ec Tab) 40 mg PO 0600,1600 [facility] Last Admin: 03/24/17 05:32 Dose: Not Given Prednisone (Prednisone Tab) 5 mg PO BRK [facility] Last Admin: 03/24/17 10:20 Dose: Not Given Tacrolimus (Prograf Cap) 1 mg PO Q12 [facility] - Labs Labs: 03/24/17 09:00 03/24/17 09:00 PT 13.7 SECONDS (9.4-12.5) H 03/21/17 09:50 INR 1.19 (0.93-1.08) H 03/21/17 09:50 APTT 32.0 Seconds (25.1-36.5) 03/21/17 09:50 - Respiratory Exam Respiratory Exam: Clear to Ausculation Bilateral, NORMAL BREATHING PATTERN - Cardiovascular Exam Cardiovascular Exam: REGULAR RHYTHM - GI/Abdominal Exam GI & Abdominal Exam: Soft, Normal Bowel Sounds - Extremities Exam Extremities Exam: Full ROM - Neurological Exam Neurological Exam: Alert, Awake - Skin Skin Exam: Dry, Warm Assessment and Plan (1) End-stage kidney disease Status: Acute (2) Anemia Status: Acute - Assessment and Plan (Free Text) Plan: monitor Hb/Hct, for EGD/colonoscopy today
--- NOTE | 2017-03-24 16:03 | RAD ---
HISTORY: reeval ? PNE COMPARISON: 03/17/2017 TECHNIQUE: Chest PA and lateral FINDINGS: LUNGS: No active pulmonary disease. PLEURA: Small bilateral pleural effusion. No pneumothorax. CARDIOVASCULAR: Normal heart size. Right tunneled central venous dialysis catheter. OSSEOUS STRUCTURES: No significant abnormalities. VISUALIZED UPPER ABDOMEN: Normal. OTHER FINDINGS: None. IMPRESSION: No infiltrate. Small bilateral pleural effusion.
[2017-03-24] MEDS ORDERED: Propofol 10 mg/ml Inj (20 ML) ONE (16:08)
[2017-03-24 17:15] LABS: C. PNEUMONIAE IGA <1:16 (<1:16); C. PNEUMONIAE IGG <1:64 (<1:64); C. PNEUMONIAE IGM <1:10 (<1:10); C. PSITTACI IGA <1:16 (<1:16); C. PSITTACI IGG <1:64 (<1:64); C. PSITTACI IGM <1:10 (<1:10)
[2017-03-24] MEDS ORDERED: Sodium Chloride 0.9% 1,000 ML IV SCH (17:30)
[2017-03-24 17:37] VITALS: RESP 14; TEMP 98.5
[2017-03-24 17:40] VITALS: PULSE 64
[2017-03-24 17:58] VITALS: BP 124/80; O2SAT 95
--- NOTE | 2017-03-24 21:33 | CP.PCM.PN ---
Subjective - Date & Time of Evaluation Date of Evaluation: 03/24/17 Time of Evaluation: 20:30 - Subjective Subjective: Patient s/p EGD and colonoscopy today; feeling "miserable"; wasn't able to consume all of colonoscopy prep; Objective - Vital Signs/Intake and Output Vital Signs (last 24 hours): Temp Pulse Resp BP Pulse Ox 98.5 F 64 14 124/80 95 03/24/17 17:51 03/24/17 17:51 03/24/17 17:51 03/24/17 17:51 03/24/17 17:51 - Medications Medications: Current Medications Alprazolam (Xanax) 0.5 mg PO BID [facility] PRN Reason: Protocol Last Admin: 03/24/17 10:04 Dose: Not Given Amlodipine Besylate (Norvasc) 10 mg PO DAILY [facility] Last Admin: 03/24/17 10:15 Dose: 10 mg Clonidine HCl (Catapres) 0.1 mg PO BID [facility] Last Admin: 03/24/17 19:37 Dose: Not Given Fluoxetine HCl (Prozac) 20 mg PO 2100 [facility] Last Admin: 03/23/17 21:28 Dose: 20 mg Vancomycin HCl (Vancomycin 750 Mg In Ns) 750 mg in 250 mls @ 167 mls/hr IVPB MWF [facility] Stop: 04/03/17 12:00 Last Admin: 03/23/17 12:07 Dose: 167 mls/hr Ondansetron HCl (Zofran Inj) 4 mg IVP Q6 PRN PRN Reason: Nausea/Vomiting Last Admin: 03/23/17 16:29 Dose: 4 mg Pantoprazole Sodium (Protonix Ec Tab) 40 mg PO 0600,1600 [facility] Last Admin: 03/24/17 16:38 Dose: Not Given Prednisone (Prednisone Tab) 5 mg PO BRK [facility] Last Admin: 03/24/17 10:20 Dose: Not Given Tacrolimus (Prograf Cap) 1 mg PO Q12 [facility] - Labs Labs: 03/24/17 09:00 03/24/17 09:00 PT 13.7 SECONDS (9.4-12.5) H 03/21/17 09:50 INR 1.19 (0.93-1.08) H 03/21/17 09:50 APTT 32.0 Seconds (25.1-36.5) 03/21/17 09:50 - Constitutional Appears: Non-toxic, No Acute Distress - Eye Exam Eye Exam: Normal appearance. absent: Scleral icterus - ENT Exam ENT Exam: Mucous Membranes Moist - Respiratory Exam Respiratory Exam: Clear to Ausculation Bilateral. absent: Respiratory Distress - Cardiovascular Exam Cardiovascular Exam: RRR, +S1, +S2 - GI/Abdominal Exam GI & Abdominal Exam: Soft. absent: Distended, Tenderness - Exam Exam: Bladder Distension - Extremities Exam Additional comments: no leg edema; - Neurological Exam Neurological Exam: Alert, Awake - Psychiatric Exam Psychiatric exam: absent: Agitated - Skin Skin Exam: Warm. absent: Cyanosis Assessment and Plan (1) ESRD on hemodialysis Assessment & Plan: Stable electrolyte and volume status; next HD tomorrow as outpatient per routine ; Status: Chronic (2) Immunosuppression Assessment & Plan: Decreasing tacrolimus to 1 mg q12h with goal to decrease further; keeping prednisone at 5 mg daily for now; Status: Chronic (3) Anemia Assessment & Plan: Hgb currently stable; discussed with GI in depth; colonoscopy needs to be repeated as outpatient due to poor prep; will refer to hematology as outpatient ; will monitor closely at outpatient HD center and continue aranesp; Status: Acute (4) Chronic kidney disease-mineral and bone disorder Assessment & Plan: On IV calcitriol formulation on HD as outpatient; on auryxia as phos binder at home; will monitor as outpatient; continue same for now; Status: Acute (5) Hypertensive CKD, ESRD on dialysis Assessment & Plan: BP controlled despite not being on valsartan here; will re-assess once patient restarts regular diet as outpatient; Status: Acute (6) Peritonitis associated with peritoneal dialysis Assessment & Plan: On vanco 750 mg qMWF, will continue as outpatient (on HD) to complete 3 weeks; Status: Acute
--- NOTE | 2017-03-25 11:04 | PQF ANEMIA ---
This form is a permanent part of the medical record Dr. Forbes, Patient presented in ERD with symptomatic anemia with hgb/hct = 5.8/18.3 treated with blood transfusion. Please clarify if anemia due to ESRD or other reason. Thank you. Clarification of your documentation is requested to better reflect the severity of illness and intensity of treatment of your patient. Indicators present [x] Anemia [x] Drop in H&H from []___ to []___ [] Hypotension [] GI Bleed [x] Transfusion(s) [] Acute bleed other sites [] Tachycardia [] Surgical Procedure Blood Loss (expected not a complication) Other:[] Location in the medical record that reflects the above clinical findings: [] Treatment Provided: [] PHYSICIAN'S RESPONSE Based on your medical judgment of the clinical indicators outlined above, are you treating this patient for a known or suspected: [] Acute blood loss anemia [] Chronic blood loss anemia [] Acute on Chronic blood loss anemia [] Anemia due to malignancy [] Anemia due to chemotherapy or radiation therapy [] Anemia of Chronic Disease, please specify: [] [] Other, please indicate type of anemia []____ [] If Unable to Determine, please check the box, sign and date. Present On Admission (POA) Indicator: [] Present at the time of admission [] Not present at the time of admission [] Clinically Undetermined In responding to this query, please exercise your independent professional judgment. The fact that a question is asked does not imply that any particular answer is desired or expected. Thank you for your clarification on this documentation. If you have any questions please call:[ ] * Thank you, [ ]osman NGUYENdean FABI
== END 2017-03-24 22:05 | disposition home or self-care (01) | DRG 811 ==
LOC: ED 09:18 → ERH 11:07 → 3RSO 20:49
PROVIDERS: ADMIT Internal Medicine; ATTEND Internal Medicine
PROC: 30233N1 Transfusion of Nonautologous Red Blood Cells into Peripheral Vein, Percutaneous Approach (ICD-10-PCS; 2017-03-21)
PROC: 5A1D70Z Performance of Urinary Filtration, Intermittent, Less than 6 Hours Per Day (ICD-10-PCS; 2017-03-23)
PROC: 0DB68ZX Excision of Stomach, Via Natural or Artificial Opening Endoscopic, Diagnostic (ICD-10-PCS; 2017-03-24)
PROC: 0DBH8ZX Excision of Cecum, Via Natural or Artificial Opening Endoscopic, Diagnostic (ICD-10-PCS; principal; 2017-03-24 14:45)
PROC: 0DB98ZX Excision of Duodenum, Via Natural or Artificial Opening Endoscopic, Diagnostic (ICD-10-PCS; 2017-03-24 14:45)
DX: D63.1 Anemia in chronic kidney disease (principal); N18.6 End stage renal disease; K65.8 Other peritonitis; I12.0 Hypertensive chronic kidney disease with stage 5 chronic kidney disease or end stage renal disease; N02.8 Recurrent and persistent hematuria with other morphologic changes; Z94.0 Kidney transplant status; K26.9 Duodenal ulcer, unspecified as acute or chronic, without hemorrhage or perforation; K63.5 Polyp of colon; K31.7 Polyp of stomach and duodenum; K57.30 Diverticulosis of large intestine without perforation or abscess without bleeding; K29.50 Unspecified chronic gastritis without bleeding; K29.80 Duodenitis without bleeding; K44.9 Diaphragmatic hernia without obstruction or gangrene; F41.9 Anxiety disorder, unspecified; E83.51 Hypocalcemia; F32.9 Major depressive disorder, single episode, unspecified; K64.8 Other hemorrhoids; J45.909 Unspecified asthma, uncomplicated; R63.4 Abnormal weight loss; Z79.899 Other long term (current) drug therapy; Z99.2 Dependence on renal dialysis

== ENCOUNTER 2017-04-11 11:10 | Emergency (ER) | payer MEDICARE, OTHER ==
[2017-04-11 11:10] VITALS: BMI 22.0
[2017-04-11 11:36] VITALS: BP 131/69; PULSE 84; RESP 19; TEMP 98.9; O2SAT 99
[2017-04-11 13:10] LABS: BASO # 0.01 K/mm3 (0.0-2.0); BASO % 0.3 % (0.0-3.0); EOS # 0.1 (0.0-0.7); EOS % 4.5 % (1.5-5.0); GRAN # 2.41 (1.4-6.5); GRAN % 78.3 % (50.0-68.0); LYMPH # 0.3 (1.2-3.4); LYMPH % 9.1 % (22.0-35.0); MEAN CELL VOLUME 91.1 fl (80.0-105.0); MEAN CORPUSCULAR HEMOGLOBIN 28.8 pg (25.0-35.0); MEAN CORPUSCULAR HGB CONC 31.6 g/dl (31.0-37.0); MEAN PLATELET VOLUME 10.6 fl (7.0-11.0); MONO # 0.2 (0.1-0.6); MONO % 7.8 % (1.0-6.0); RBC 2.36 10^6/uL (3.5-6.1); RED CELL DISTRIBUTION WIDTH 14.5 % (11.5-14.5); WHITE BLOOD COUNT 3.1 10^3/ul (4.5-11.0)
[2017-04-11 13:14] LABS: HEMOGLOBIN 6.8 g/dL (14.0-18.0)
[2017-04-11 13:16] LABS: INR 1.18 (0.93-1.08); PARTIAL THROMBOPLASTIN TIME 33.3 Seconds (25.1-36.5); PROTHROMBIN TIME 13.6 SECONDS (9.4-12.5)
[2017-04-11] MEDS ORDERED: Lidocaine 1% Inj (20ml) IJ STA (13:17)
--- NOTE | 2017-04-11 15:08 | ED PDOC ---
Arrival/HPI - General Chief Complaint: Male Genitourinary Time Seen by Provider: 04/11/17 11:14 Historian: Patient - History of Present Illness Narrative History of Present Illness (Text): 04/11/17 15:02 Chris Weston is a 51 year old male, whose past medical history includes end stage renal disease, hemodialysis, and chronic anemia, who presents to the ed for removal of his dialysis catheter. Patient was sent by his manager transit. Patient receives dialysis every Thursday, Thursday, and Thursday. Recent Blood culture grew negative bacterial. His last treatment was yesterday. Patient denies any vomiting, fever, chest pain or any other complaints. Time/Duration: 24 hours Symptom Onset: Gradual Symptom Course: Unchanged Activities at Onset: Light Context: Home Past Medical History - Provider Review Nursing Documentation Reviewed: Yes - Past History Past History: No Previous - Infectious Disease Hx of Infectious Diseases: None - Tetanus Immunization Tetanus Immunization: Unknown - Past Medical History Past Medical History: Non-Contributing - Cardiac Hx Heart Murmur: Yes ("small" as per pt) Hx Pacemaker: No - Pulmonary Hx Respiratory Disorders: Yes Hx Bronchitis: Yes (2 yrs ago) - Neurological Hx Neurological Disorder: No - HEENT Hx HEENT Disorder: Yes (WEARS RX GLASSES for reading) - Renal Hx Renal Disorder: Yes Hx Dialysis: Yes ([facility]) Hx Renal Failure: Yes Other/Comment: llq abd peritoneal dialysis inserted 06/10/16 and removed last week. 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, - Endocrine/Metabolic Hx Endocrine Disorders: No - Hematological/Oncological Hx Blood Transfusions: Yes (LAST WEEK) Hx Blood Transfusion Reaction: No - Integumentary Hx Dermatological Disorder: No - Musculoskeletal/Rheumatological Hx Musculoskeletal Disorders: Yes (butsitis elbow) Hx Falls: No Hx Fractures: Yes (r 1st finger) - Gastrointestinal Hx Gastrointestinal Disorders: No Hx Gall Bladder Disease: Yes (stones) Other/Comment: bleeding ulcer dx 02/2017 - Genitourinary/Gynecological Hx Genitourinary Disorders: Yes Other/Comment: ANURIC - Psychiatric Hx Anxiety: Yes Hx Depression: Yes Hx Emotional Abuse: No Hx Physical Abuse: No Hx Substance Use: No - Surgical History Hx Kidney Transplant: Yes (2003 failed) Other/Comment: PD placement in the LLQ and dialysis port to chest removed, l arm av shunt maturing, pd cath removed 03/17/17 and to start hd through rcw hd cath, kidney bx's - Anesthesia Hx Anesthesia: Yes Hx Anesthesia Reactions: No Hx Malignant Hyperthermia: No - Suicidal Assessment Feels Threatened In Home Enviroment: No Family/Social History - Physician Review Nursing Documentation Reviewed: Yes Family/Social History: Unknown Family HX Smoking Status: Never Smoked Hx Alcohol Use: No Hx Substance Use: No Allergies/Home Meds Allergies/Adverse Reactions: Allergies Iodine and Iodide Containing Produc Allergy (Verified 04/11/17 11:36) ANAPHYLAXIS lactose Allergy (Verified 04/11/17 11:36) DIARRHEA shellfish derived Allergy (Verified 04/11/17 11:36) ANAPHYLAXIS Home Medications: Home Meds Medication Instructions Recorded Confirmed Amlodipine/Valsartan [Exforge 10 1 tab PO DAILY 03/13/17 04/11/17 mg-320 mg] Pantoprazole [Protonix EC Tab] 40 mg PO 0600 03/13/17 04/11/17 Sennosides A and B [Senokot Tab] 2 tab PO HS 03/13/17 04/11/17 cloNIDine [clonidine HCl] 0.1 mg PO BID 03/13/17 04/11/17 Alprazolam [Xanax] 0.5 mg PO BID 03/17/17 04/11/17 Saccharomyces Boulardi [Florastor] 1 cap PO BID 04/11/17 04/11/17 Tacrolimus [Prograf Cap] 0.5 mg PO Q12 04/11/17 04/11/17 Review of Systems - Physician Review All systems were reviewed & negative as marked: Yes - Review of Systems Constitutional: Normal Eyes: Normal ENT: Normal Respiratory: Normal. absent: SOB, Cough Cardiovascular: Normal. absent: Chest Pain, Palpitations Gastrointestinal: Normal. absent: Abdominal Pain, Diarrhea, Nausea, Vomiting Genitourinary Male: Normal. absent: Dysuria, Frequency, Hematuria, Urinary Output Changes Musculoskeletal: Normal. absent: Back Pain, Neck Pain Skin: Normal. absent: Rash Neurological: Normal. absent: Headache, Dizziness Endocrine: Normal Hemo/Lymphatic: Normal Psychiatric: Normal Physical Exam Vital Signs Reviewed: Yes Vital Signs Temp Pulse Resp BP Pulse Ox 04/11/17 11:29 98.9 F 84 19 131/69 99 Temperature: Afebrile Blood Pressure: Normal Pulse: Regular Respiratory Rate: Normal Appearance: Positive for: Well-Appearing, Non-Toxic, Comfortable Pain Distress: None Mental Status: Positive for: Alert and Oriented X 3 - Systems Exam Head: Present: Atraumatic, Normocephalic Pupils: Present: PERRL Extroacular Muscles: Present: EOMI Conjunctiva: Present: Normal Mouth: Present: Moist Mucous Membranes Neck: Present: Normal Range of Motion Respiratory/Chest: Present: Clear to Auscultation, Good Air Exchange, Other ( Right dialysis catheter). No: Respiratory Distress, Accessory Muscle Use Cardiovascular: Present: Regular Rate and Rhythm, Normal S1, S2. No: Murmurs Abdomen: Present: Normal Bowel Sounds. No: Tenderness, Distention, Peritoneal Signs Back: Present: Normal Inspection Upper Extremity: Present: Normal Inspection. No: Cyanosis, Edema Lower Extremity: Present: Normal Inspection. No: Edema Neurological: Present: GCS=15, CN II-XII Intact, Speech Normal Skin: Present: Warm, Dry, Normal Color. No: Rashes Psychiatric: Present: Alert, Oriented x 3, Normal Insight, Normal Concentration Medical Decision Making ED Course and Treatment: 04/11/17 15:10 Impression: 51 year old male presents to the emergency department for dialysis catheter removal. Plan: -- Blood Culture -- Lidocaine -- Reassess and disposition Notes: Case discussed with Dr. Reynoso, pt's manager transit, who is aware and agrees with plan. Blood Culture reviewed, hemoglobin at 7. Re-evaluation: On reevaluation the patient feels better and is in no acute distress. I have discussed the results and plan with the patient, who expresses understanding. Patient given the opportunity to ask question, all questions were answered and there is agreement with the plan to discharge the patient home with prescription for dentomycin. Patient is stable for discharge. Patient was instructed to follow up with physician in 2 days. - Lab Interpretations Lab Results: 04/11/17 12:30 Lab Results 04/11/17 12:30: PT 13.6 H, INR 1.18 H, APTT 33.3 04/11/17 12:30: WBC 3.1 L D, RBC 2.36 L, Hgb 6.8 L*, Hct 21.5 L, MCV 91.1, MCH 28.8, MCHC 31.6, RDW 14.5, Plt Count 88 L, MPV 10.6, Gran % 78.3 H, Lymph % ( Auto) 9.1 L, [place] % (Auto) 7.8 H, Eos % (Auto) 4.5, Baso % (Auto) 0.3, Gran # 2.41, Lymph # (Auto) 0.3 L, [place] # (Auto) 0.2, Eos # (Auto) 0.1, Baso # (Auto) 0.01 - Medication Orders Current Medication Orders: Discontinued Medications Lidocaine HCl (Lidocaine 1% (20ml)) 5 ml IJ STAT STA Stop: 04/11/17 13:18 Last Admin: 04/11/17 13:26 Dose: 5 ml - PA / OFFSHORE DIVER / Resident Statement MD/DO has reviewed & agrees with the documentation as recorded. MD/DO has examined the patient and agrees with the treatment plan. - Scribe Statement The provider has reviewed the documentation as recorded by the Scribe Jodie Patricia All medical record entries made by the Scribe were at my direction and personally dictated by me. I have reviewed the chart and agree that the record accurately reflects my personal performance of the history, physical exam, medical decision making, and the department course for this patient. I have also personally directed, reviewed, and agree with the discharge instructions and disposition. Disposition/Present on Arrival - Present on Arrival Any Indicators Present on Arrival: No History of DVT/PE: No History of Uncontrolled Diabetes: No Urinary Catheter: No History of Decub. Ulcer: No History Surgical Site Infection Following: None - Disposition Have Diagnosis and Disposition been Completed?: Yes Diagnosis: ESRD (end stage renal disease) on dialysis, Anemia Disposition: HOME/ ROUTINE Disposition Time: 13:30 Condition: GOOD Discharge Instructions (ExitCare): Kidney Failure (DC) Additional Instructions: Thank you for letting us take care of you today. You were treated for [ Diagnosis Here]. The emergency medical care you received today was directed at your acute symptoms. If you were prescribed any medication, please fill it and take as directed. It may take several days for your symptoms to resolve. Return to the Emergency Department if your symptoms worsen, do not improve, or if you have any other problems. Please contact your doctor or call one of the physicians/clinics you have been referred to that are listed on the Patient Visit Information form that is included in your discharge packet. Bring any paperwork you were given at discharge with you along with any medications you are taking to your follow up visit. Our treatment cannot replace ongoing medical care by a primary care provider (PCP) outside of the emergency department. Thank you for allowing the [facility] team to be part of your care today. Follow up with Dr. Forbes and your dialysis center in 2 days for further evaluation and management. Referrals: Harsha Rivers JD, MD [Primary Care Provider] - Follow up with primary Forms: [employer] (Kiswahili)
== END 2017-04-11 14:44 | disposition home or self-care (01) ==
LOC: ED 11:10
DX: N18.6 End stage renal disease (principal); D64.9 Anemia, unspecified; Z99.2 Dependence on renal dialysis

== ENCOUNTER 2017-07-21 07:49 | Day surgery (SDC) | payer MEDICARE ==
[2017-07-13 14:26] VITALS: BMI 21.2
[2017-07-21] MEDS ORDERED: Propofol 10 mg/ml Inj (20 ML) ONE (09:28)
[2017-07-21 09:41] LABS: ALB/GLOB RATIO 1.1 (1.1-1.8); ALBUMIN 4.3 g/dL (3.0-4.8); CALCIUM 9.2 mg/dL (8.4-10.5)
[2017-07-21] MEDS ORDERED: Sodium Chloride 0.9% 1,000 ML IV SCH (10:15)
[2017-07-21 11:08] VITALS: BP 147/88; PULSE 54; RESP 16; TEMP 97.6; O2SAT 98
== END 2017-07-21 11:25 | disposition home or self-care (01) ==
LOC: ENDO 07:49
PROVIDERS: ATTEND Internal Medicine Gastroenterology
DX: K57.30 Diverticulosis of large intestine without perforation or abscess without bleeding (principal); K56.2 Volvulus; K64.8 Other hemorrhoids
CPT/HCPCS: 36415; 45378; 80053; J2704; J7030; J7040

== ENCOUNTER 2017-12-15 09:26 | Day surgery (SDC) | payer MEDICARE ==
[2017-12-10 13:26] VITALS: BMI 23.1
[2017-12-15 09:55] LABS: EOS # 0.2 (0.0-0.7); EOS % 3.3 % (1.5-5.0); GRAN # 3.69 (1.4-6.5); GRAN % 71.7 % (50.0-68.0); HEMOGLOBIN 13.5 g/dL (14.0-18.0); LYMPH # 0.8 (1.2-3.4); LYMPH % 16.1 % (22.0-35.0); MEAN CORPUSCULAR HEMOGLOBIN 29.9 pg (25.0-35.0); MEAN CORPUSCULAR HGB CONC 33.3 g/dl (31.0-37.0); MEAN PLATELET VOLUME 8.5 fl (7.0-11.0); MONO # 0.5 (0.1-0.6); MONO % 8.9 % (1.0-6.0); RBC 4.51 10^6/uL (3.5-6.1); RED CELL DISTRIBUTION WIDTH 14.7 % (11.5-14.5); WHITE BLOOD COUNT 5.2 10^3/uL (4.5-11.0)
[2017-12-15 10:04] LABS: INR 0.98; PARTIAL THROMBOPLASTIN TIME 32.8 Seconds (25.1-36.5); PROTHROMBIN TIME 11.3 SECONDS (9.4-12.5)
[2017-12-15] MEDS ORDERED: DiphenhydrAMINE 50 mg/ml Inj ONE (11:39)
[2017-12-15] MEDS ORDERED: Famotidine 20mg/50ml 20 MG/50 ML BAG IVPB ONE (11:40)
[2017-12-15] MEDS ORDERED: Lidocaine 2% Inj (20ml) ONE (12:02)
[2017-12-15] MEDS ORDERED: Nitroglycerin 50mg in D5W 50 MG/250 ML BOTTLE IV ONE (12:03)
[2017-12-15] MEDS ORDERED: Iodixanol 320 MG/ML 100 ML BOTTLE IV ONE ×2 (12:03→13:30)
[2017-12-15] MEDS ORDERED: Midazolam 2 MG/2 ML VIAL ONE ×2 (12:39→13:08)
[2017-12-15 14:13] VITALS: TEMP 98.2
[2017-12-15 14:17] VITALS: PULSE 84
[2017-12-15 14:50] VITALS: BP 141/87; RESP 20; O2SAT 95
--- NOTE | 2017-12-15 20:07 | VASCULAR ---
PROCEDURE: 1. Left upper extremity AV fistula angiogram 2. Venous angioplasty left forearm HISTORY: End-stage renal disease. Malfunctioning AV access PHYSICIAN(S): Marco Antonio Martinez MD. TECHNIQUE: The relative risks and indications of the procedure were explained to the patient and consent obtained. The patient was placed supine on the angiography table and the right arm prepped and draped in usual sterile fashion. Conscious sedation and monitoring provided throughout the procedure by a nurse. Preliminary sonography of the anastomosis was performed. The left arm AV fistula was punctured in the mid forearm in an antegrade direction with a micropuncture set. A 5 Chinese catheter was placed. An overlapping left upper extremity AV fistula angiogram was performed. Central venous imaging was obtained. Pressure was applied near the access site and reflux of the arterial anastomosis performed. A 6 Chinese sheath was placed. The short segment occlusion of the proximal venous outflow in the left forearm was crossed. Exchange is made for a 0.018 support guidewire. The 5 centimeter occlusion in the proximal venous outflow was dilated with a 8 mm balloon. There was refractory web. Subsequently this area was treated with a 7 mm cutting balloon. Repeat dilatation with the 8 mm balloon was performed. Completion venograms were obtained. The sheath was removed hemostasis obtained with a purse string suture FINDINGS: The patient's left radial-cephalic fistula is patent at the anastomosis. The anastomosis is well seen with sonography. The anastomosis was not well demonstrated on the reflux images. There is a 5 cm occlusion of the proximal venous outflow. The venous outflow is via the left basilic veins. The left cephalic vein above the elbow is occluded. There is a refractory stenosis within the chronic occlusion. This was successfully treated with a cutting balloon and 8 mm noncompliant balloon. No stent was required. The central veins are widely patent. IMPRESSION: 1. 5 cm occlusion of the proximal venous outflow in the left forearm. Successful dilatation with a 7 mm cutting balloon and 8 mm noncompliant balloon. 2. Widely patent central veins.
== END 2017-12-15 15:30 | disposition home or self-care (01) ==
LOC: SDSVAS 09:26
PROVIDERS: ATTEND Radiology Vascular & Interventional Radiology
DX: T82.898A Other specified complication of vascular prosthetic devices, implants and grafts, initial encounter (principal); N18.6 End stage renal disease; I12.0 Hypertensive chronic kidney disease with stage 5 chronic kidney disease or end stage renal disease; Z99.2 Dependence on renal dialysis; Z94.0 Kidney transplant status; Y83.2 Surgical operation with anastomosis, bypass or graft as the cause of abnormal reaction of the patient, or of later complication, without mention of misadventure at the time of the procedure
CPT/HCPCS: 36415; 36902; 80048; 85025; 85610; 85730; 99152; 99153; C1725 ×2; C1769 ×2; C1894 ×2; J1200; J1644; J2250; J2930; J3010; Q9967